=== PATIENT | male | born 1995 | race American Indian/Alaskan Native ===

== ENCOUNTER 2020-05-27 00:59 | Inpatient (IN) | payer OTHER, SELFPAY ==
[2020-05-27 02:46] LABS: Hematocrit 46.5 % (35.5-45.6); Hemoglobin 15.9 gm/dl (11.8-15.2); Mean Corpuscular HGB Conc 34 % (32-34); Mean Corpuscular Volume 101 fl (84-94); Platelet Count 196 K/mm3 (140-440); Red Cell Distribution Width 11.8 % (13.2-15.2)
[2020-05-27 03:04] LABS: Alanine Aminotransferase 13 units/L (7-56); Albumin 4.7 g/dL (3.9-5); BUN/Creatinine Ratio 10; Blood Urea Nitrogen 10 mg/dL (9-20); Calcium 9.6 mg/dL (8.4-10.2); Hemolysis Index 21
[2020-05-27] MEDS ORDERED: SODIUM CHLORIDE 0.9% 1000 ML 1,000 ML IV ONE ×2 (03:23→04:57)
[2020-05-27] MEDS ORDERED: MORPHINE 4 MG/1 ML INJ IV ONE ×2 (03:23→04:57)
[2020-05-27] MEDS ORDERED: ONDANSETRON 4 MG/2 ML INJ IV ONE ×2 (03:23→04:57)
[2020-05-27 03:25] LABS: Bilirubin,Urine NEG (Negative); Blood,Urine NEG (Negative); Color,Urine Amber (Yellow); Mucus,Urine 3+ /HPF
[2020-05-27] MEDS ORDERED: FAMOTIDINE 20 MG/2 ML INJ IV ONE (03:33)
--- NOTE | 2020-05-27 04:35 | Cat Scan Report ---
CT abdomen pelvis w con INDICATION: Abdominal pain, N/V. TECHNIQUE: All CT scans at this location are performed using CT dose reduction for ALARA by means of automated e xposure control. COMPARISON: None available. FINDINGS: Lung bases are clear. 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 Liver is otherwise negative. However, there is a small amount of ascites around the liver . Gallbladder, spleen, pancreas, kidneys and adrenals are negative. Abdominal aorta is normal in size. No adenopathy. There is diffuse small bowel distention. No free air. Pelvis 7 mm calculus in the lower pelvis is thought to represent an appendicolith. The appendix is distended , with inflammation in the appendix itself and the surrounding soft tissues. IMPRESSION: 1. Acute appendicitis with large appendicolith. Ascites and small bowel distention (adynamic ileus) a re thought to be secondary to the inflammatory process. Signer Name: Alen Arceo MD Signed: 05/27/2020 4:31 AM Workstation Name: [id number]
--- NOTE | 2020-05-27 04:46 | Emergency Department Report ---
ED Abdominal Pain HPI - General Chief Complaint: Abdominal Pain Stated Complaint: STOMACH PAIN Source: patient Mode of arrival: Ambulatory Limitations: No Limitations - History of Present Illness Initial Comments: Patient is a 24-year-old -Swazi male with a history of HIV and who is on medications, and who presents to the ED with acute onset persistent severe diffuse abdominal pain that radiates to the right lower quadrant and periumbilical area with intractable nausea and vomiting for the last 2 days after starting on a vegan diet. Patient states that the pain has been persistent and he initially thought that he was constipated. Patient states that with worsening pain he was unable to keep anything down because of intractable nausea and vomiting. Patient denies diarrhea, dizziness, syncope, fever, chills, cough, sore throat, chest pain, dysuria, urinary frequency and urgency, testicular pain, hematuria, change in vision or penile discharge. MD Complaint: abdominal pain, other (Nausea and vomiting) -: Sudden, days(s) (2) Location: diffuse, RLQ Radiation: RLQ, epigastric Migration to: no migration Severity scale (0 -10): 10 Quality: cramping, aching, sharp Consistency: constant Improves With: nothing Worsens With: nothing Associated Symptoms: denies other symptoms, nausea, vomiting. denies: diarrhea, fever, chills, constipation, hematemesis, hematochezia, melena, hematuria, syncope - Related Data Allergies Allergy/AdvReac Type Severity Reaction Status Date / Time No Known Allergies Allergy Unverified 05/27/20 02:09 ED Review of Systems ROS: Stated complaint: STOMACH PAIN Other details as noted in HPI Constitutional: denies: chills, fever Eyes: denies: eye pain, eye discharge, vision change ENT: denies: ear pain, throat pain Respiratory: denies: cough, shortness of breath, wheezing Cardiovascular: denies: chest pain, palpitations Endocrine: no symptoms reported Gastrointestinal: abdominal pain (Diffuse, worse in the right lower quadrant and periumbilical area), nausea, vomiting. denies: diarrhea Genitourinary: denies: urgency, dysuria Musculoskeletal: denies: back pain, joint swelling, arthralgia Skin: denies: rash, lesions Neurological: denies: headache, weakness, paresthesias Psychiatric: denies: anxiety, depression Hematological/Lymphatic: denies: easy bleeding, easy bruising ED Past Medical Hx - Past Medical History Previous Medical History?: Yes Hx HIV: Yes - Surgical History Past Surgical History?: No - Social History Smoking Status: Never Smoker Substance Use Type: None ED Physical Exam - General Limitations: No Limitations General appearance: alert, in no apparent distress - Head Head exam: Present: atraumatic, normocephalic, normal inspection - Eye Eye exam: Present: normal appearance, PERRL, EOMI Pupils: Present: normal accommodation - ENT ENT exam: Present: normal exam, normal orophraynx, mucous membranes moist, TM's normal bilaterally, normal external ear exam - Neck Neck exam: Present: normal inspection, full ROM - Respiratory Respiratory exam: Present: normal lung sounds bilaterally. Absent: respiratory distress, wheezes, rales, rhonchi, chest wall tenderness, accessory muscle use, decreased breath sounds - Cardiovascular Cardiovascular Exam: Present: regular rate, normal rhythm, normal heart sounds. Absent: systolic murmur, diastolic murmur, rubs, gallop - GI/Abdominal GI/Abdominal exam: Present: soft, tenderness (Palpable right lower quadrant rebound tenderness with guarding), guarding, rebound, normal bowel sounds, hyperactive bowel sounds. Absent: hypoactive bowel sounds, mass - Extremities Exam Extremities exam: Present: normal inspection, full ROM, normal capillary refill - Back Exam Back exam: Present: normal inspection, full ROM. Absent: tenderness, CVA tenderness (R), CVA tenderness (L), muscle spasm, paraspinal tenderness, vertebral tenderness - Neurological Exam Neurological exam: Present: alert, oriented X3, CN II-XII intact, normal gait, reflexes normal - Psychiatric Psychiatric exam: Present: normal affect, normal mood - Skin Skin exam: Present: warm, dry, intact, normal color. Absent: rash ED Course Vital Signs 05/27/20 05/27/20 02:04 03:01 Temperature 98.7 F Pulse Rate 106 H Respiratory 18 Rate Blood Pressure 105/81 O2 Sat by Pulse 96 Oximetry - Reevaluation(s) Reevaluation #1: 05/27/20 04:50 I paged and discussed the patient's case with the general surgeon on-call Dr. Fe Villarreal who advised that the patient be admitted by the hospitalist physician on-call and he shall consult on the patient upon admission. ED Medical Decision Making - Lab Data Result diagrams: 05/27/20 02:19 05/27/20 02:19 - Radiology Data Radiology results: report reviewed, image reviewed Findings [facility] [address] [id number] Cat Scan Report Signed Patient: KEERTHI PEÑA MR#: [id number] : 1995 Acct:[id number] Age/Sex: 24 / M ADM Date: 05/27/20 Loc: ED Attending Dr: Ordering Physician: GEORGE PFEIFFER Date of Service: 05/27/20 Procedure(s): CT abdomen pelvis w con Accession Number(s): [id number] cc: GEORGE PFEIFFER CT abdomen pelvis w con INDICATION: Abdominal pain, N/V. TECHNIQUE: All CT scans at this location are performed using CT dose reduction for ALARA by means of automated exposure control. COMPARISON: None available. FINDINGS: Lung bases are clear. 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 Liver is otherwise negative. However, there is a small amount of ascites around the liver. Gallbladder, spleen, pancreas, kidneys and adrenals are negative. Abdominal aorta is normal in size. No adenopathy. There is diffuse small bowel distention. No free air. Pelvis 7 mm calculus in the lower pelvis is thought to represent an appendicolith. The appendix is distended, with inflammation in the appendix itself and the surrounding soft tissues. IMPRESSION: 1. Acute appendicitis with large appendicolith. Ascites and small bowel distention (adynamic ileus) are thought to be secondary to the inflammatory process. Signer Name: Alen Arceo MD Signed: 05/27/2020 4:31 AM Workstation Name: [id number] Transcribed By: TM Dictated By: Alen Arceo MD Electronically Authenticated By: Alen Arceo MD Signed Date/Time: 05/27/20 043 DD/ 2 TD/TT: - Medical Decision Making This is a 24-year-old -Swazi male with a history of HIV and who is on medications, and who presents to the ED with acute onset persistent severe diffuse abdominal pain that radiates to the right lower quadrant and periumbilical area with intractable nausea and vomiting for the last 2 days after starting on a vegan diet. Patient states that the pain has been persistent and he initially thought that he was constipated. Patient states that with worsening pain he was unable to keep anything down because of intractable nausea and vomiting. In the ED, patient is alert and oriented x3 and is not in distress. Lab test results were reviewed and are all nonactionable. Patient was treated for pain and also nausea and vomiting, and was also given normal saline 1 L IV bolus x1. Abdomen pelvis CT scan with contrast shows acute appendicitis with large appendicolith. Ascites and small bowel distention (adynamic ileus) are thought to be secondary to the inflammatory process. On reevaluation, patient's pain is well controlled medication as well as nausea and vomiting. Patient case was discussed with the ED attending physician Dr. Fanny Prater who agreed the plan of care. I therefore paged and discussed the patient's case with the general surgeon on- call Dr. Fe Villarreal who advised that the patient be admitted by the hospitalist physician and that he shall consult the patient upon admission later this morning. I therefore paged and discussed the patient's case with the hospitalist physician on-call Dr. Anderson who admitted the patient to the hospital. - Differential Diagnosis Appendicitis; small bowel obstruction; kidney stones; UTI; colitis Critical care attestation.: If time is entered above; I have spent that time in minutes in the direct care of this critically ill patient, excluding procedure time. ED Disposition Clinical Impression: Acute abdominal pain in right lower quadrant, Nausea and vomiting in adult, Fever and chills Acute appendicitis Qualifiers: Acute appendicitis type: unspecified acute appendicitis type Qualified Code(s): K35.80 - Unspecified acute appendicitis Disposition: OP ADMIT IP TO THIS HOSP Is pt being admited?: Yes Does the pt Need Aspirin: No Condition: Stable Instructions: Abdominal Pain (ED) Referrals: PRIMARY CARE, [Primary Care Provider] - 3-5 Days Time of Disposition: 05:09 Print Language: ARMENIAN
[2020-05-27] MEDS ORDERED: PIPERACIL/TAZOBACTA 4.5/NS 100 4.5 GM/100 ML VIAL IV ONE (04:57)
[2020-05-27] MEDS ORDERED: ACETAMINOPHEN 500 MG TAB PO ONE (05:09)
[2020-05-27 05:23] LABS: Anisocytosis 1+; Basophils % (Manual) 0 % (0.0-1.8); Eosinophils % (Manual) 0 % (0.0-4.3); Macrocytosis 1+; Total Cells Counted 100
[2020-05-27 05:24] LABS: Platelet Estimate Consistent w Auto
[2020-05-27] MEDS ORDERED: ACETAMINOPHEN 325 MG TAB PO PRN (05:32)
--- NOTE | 2020-05-27 05:37 | History and Physical Report ---
History of Present Illness Date of examination: 05/27/20 Date of admission: 05/27/20 05:11 Chief complaint: Abdominal Pain Nausea and vomiting History of present illness: 24-year-old -[place] male with known history of HIV diagnosed in 2015 with undetectable viral load seen the emergency room today complaining of nausea and vomiting with associated abdominal pain which has been ongoing for the past 2 days. He denies any fever or chills, no chest pain or shortness of breath, no headache or dizziness, no cough, no hematuria or dysuria but he had a bout of loose stools. Denies any bright red blood per rectum. Patient denies any sick contacts and no recent travel. Denies any contact with anyone with COVID-19. Evaluation in the emergency room today including CT scan of the abdomen and pelvis:Acute appendicitis with large appendicolith. Ascites and small bowel distention (adynamic ileus)are thought to be secondary to the inflammatory process. General surgeon Dr. Austin has been consulted by the ER physician. Patient has been placed on IV fluid, IV analgesic medication and empiric IV antibiotics. Past History Past Medical History: other (HIV positive) Past Surgical History: No surgical history Social history: no significant social history Family history: no significant family history Medications and Allergies Allergies Allergy/AdvReac Type Severity Reaction Status Date / Time No Known Allergies Allergy Unverified 05/27/20 02:09 Active Meds: Active Medications Sodium Chloride (Nacl 0.9% 1000 Ml) 1,000 mls @ 125 mls/hr IV ONCE ONE Stop: 05/27/20 12:56 Review of Systems Constitutional: no fever, no chills Ears, nose, mouth and throat: no nasal congestion, no sore throat Cardiovascular: no chest pain, no palpitations Respiratory: no cough, no shortness of breath Gastrointestinal: abdominal pain, nausea, vomiting, diarrhea Genitourinary Male: no dysuria, no hematuria, no flank pain, no nocturia Musculoskeletal: no neck pain, no low back pain Integumentary: no rash, no pruritis Neurological: no headaches, no confusion Psychiatric: no anxiety, no depression Exam - Constitutional Vitals: Temp Pulse Resp BP Pulse Ox 100.1 F H 112 H 18 141/50 99 05/27/20 04:55 05/27/20 04:55 05/27/20 04:55 05/27/20 04:55 05/27/20 04:55 General appearance: Present: no acute distress, well-nourished - EENT Eyes: Present: PERRL, EOM intact. Absent: scleral icterus ENT: hearing intact, clear oral mucosa, dentition normal - Neck Neck: Present: supple, normal ROM - Respiratory Respiratory effort: normal Respiratory: bilateral: CTA - Cardiovascular Rhythm: regular Heart Sounds: Present: S1 & S2. Absent: gallop, systolic murmur, diastolic murmur - Extremities Extremities: no ischemia, pulses intact, pulses symmetrical, No edema, Full ROM Peripheral Pulses: within normal limits - Abdominal General gastrointestinal: Present: soft, tender, non-distended, normal bowel sounds. Absent: mass Localized gastrointestinal: tender: RLQ, guarding: RLQ - Integumentary Integumentary: Present: clear, warm, dry - Musculoskeletal Musculoskeletal: strength equal bilaterally - Psychiatric Psychiatric: appropriate mood/affect, intact judgment & insight, memory intact, cooperative - Neurologic Neurologic: CNII-XII intact, no focal deficits, moves all extremities Results - Labs CBC & Chem 7: 05/27/20 02:19 05/27/20 02:19 Labs: Abnormal lab results 05/27/20 05/27/20 05/27/20 Range/Units 02:19 02:19 03:15 Hgb 15.9 H (11.8-15.2) gm/dl Hct 46.5 H (35.5-45.6) % MCV 101 H (84-94) fl MCH 35 H (28-32) pg RDW 11.8 L (13.2-15.2) % Seg Neuts % (Manual) 87.0 H (40.0-70.0) % Lymphocytes % (Manual) 8.0 L (13.4-35.0) % Lymphocytes # (Manual) 0.4 L (1.2-5.4) K/mm3 Chloride 95.2 L (98-107) mmol/L Glucose 115 H (75-100) mg/dL Total Protein 8.7 H (6.3-8.2) g/dL Ur Specific [place] 1.038 H (1.003-1.030) Assessment and Plan - Patient Problems (1) Acute appendicitis Current Visit: Yes Status: Acute Qualifiers: Acute appendicitis type: unspecified acute appendicitis type Qualified Code(s): K35.80 - Unspecified acute appendicitis Plan to address problem: Patient placed on IV fluid and empiric IV antibiotics. General surgeon Dr. Austin has been consulted. Patient will be kept n.p.o. (2) Nausea and vomiting in adult Current Visit: Yes Status: Acute Plan to address problem: Probably secondary to the appendicitis. Will place on IV analgesic medication, IV fluid and IV Zofran as needed. (3) DVT prophylaxis Current Visit: Yes Status: Acute Plan to address problem: Patient placed on sequential compression device. (4) Full code status Current Visit: Yes Status: Acute
[2020-05-27] MEDS: PIPERACIL/TAZOBACTA 4.5/NS 100 4.5 GM/100 ML VIAL IV SCH ×3 (06:07→21:51)
--- NOTE | 2020-05-27 09:33 | Anesthesia Consultation ---
Anesthesia Consult and Med Hx Date of service: 05/27/20 - Airway Anesthetic Teeth Evaluation: Good ROM Head & Neck: Adequate Mental/Hyoid Distance: Adequate Mallampati Class: Class II Intubation Access Assessment: Probably Good - Pre-Operative Health Status ASA Pre-Surgery Classification: ASA2 Proposed Anesthetic Plan: General - Pulmonary Hx Smoking: Yes (marijuana) Hx Asthma: No Hx Respiratory Symptoms: No SOB: No COPD: No Home Oxygen Therapy: No Hx Pneumonia: No Hx Sleep Apnea: No - Cardiovascular System Hx Hypertension: No Hx Coronary Artery Disease: No Hx Heart Attack/AMI: No Hx Angina: No Hx Percutaneous Transluminal Coronary Angioplasty (PTCA): No Hx Cardia Arrhythmia: No Hx Pacemaker: No Hx Internal Defibrillator: No Hx Valvular Heart Disease: No Hx Heart Murmur: No Hx Peripheral Vascular Disease: No - Central Nervous System Hx Neuromuscular Disorder: No Hx Seizures: No CVA: No Hx Back Pain: No Hx Psychiatric Problems: Yes (anexity/depression) - Gastrointestinal Hx Ulcer: No Hx Gastroesophageal Reflux Disease: No - Endocrine Hx Renal Disease: No Hx End Stage Renal Disease: No Hx Cirrhosis: No Hx Liver Disease: No Hx Insulin Dependent Diabetes: No Hx Non-Insulin Dependent Diabetes: No Hx Thyroid Disease: No Hx Hypothyroidism: No Hx Hyperthyroidism: No - Hematic Hx Anemia: No Hx Sickle Cell Disease: No - Other Systems Hx Alcohol Use: Yes (occ.) Hx Substance Use: Yes (marijuana) Hx Cancer: No Hx Obesity: No - Additional Comments Anesthesia Medical History Comments: HIV+. Do NOT disclose to any family.
--- NOTE | 2020-05-27 09:34 | Anesthesia Day of Surgery ---
Anesthesia Day of Surgery - Day of Surgery Patient Examined: Yes Patient H&P Reviewed: Yes Patient is NPO: Yes
--- NOTE | 2020-05-27 09:36 | Consultation ---
History of Present Illness Consult date: 05/27/20 Reason for consult: abdominal pain Chief complaint: 24 yo BM with HIV (undetectable viral count/asx) presents with 2 days of abd pain (lower) ands n/v x5-6. Ct with appendicitis with significant inflammation RLQ/pelvis with large appendicolith and secondary SBO. Pt was tested for Covid on Thursday and states he was negative but no physical prrof as its in his phone which he does not have in possession. Past History Past Medical History: other (HIV positive) Past Surgical History: No surgical history, Other (hx testicular torsion sx with no anes/bleeding comps) Social history: no significant social history Family history: no significant family history Medications and Allergies Allergies Allergy/AdvReac Type Severity Reaction Status Date / Time No Known Allergies Allergy Unverified 05/27/20 02:09 Active Meds: Active Medications Acetaminophen (Tylenol) 650 mg PO Q4H PRN PRN Reason: Pain MILD(1-3)/Fever >100.5/MENDEZ Sodium Chloride (Nacl 0.9% 1000 Ml) 1,000 mls @ 125 mls/hr IV ONCE ONE Stop: 05/27/20 12:56 Sodium Chloride (Nacl 0.9% 1000 Ml) 1,000 mls @ 125 mls/hr IV DIRECT AMOR Piperacillin Sod/Tazobactam Sod (Zosyn/Ns 4.5gm/100ml) 4.5 gm in 100 mls @ 200 mls/hr IV Q8HR AMOR; Protocol Last Admin: 05/27/20 06:07 Dose: 200 mls/hr Documented by: Morphine Sulfate (Morphine) 2 mg IV Q4H PRN PRN Reason: Pain, Moderate (4-6) Ondansetron HCl (Zofran) 4 mg IV Q8H PRN PRN Reason: Nausea And Vomiting Sodium Chloride (Sodium Chloride Flush Syringe 10 Ml) 10 ml IV BID AMOR Sodium Chloride (Sodium Chloride Flush Syringe 10 Ml) 10 ml IV PRN PRN PRN Reason: LINE FLUSH Exam Vital Signs Temp Resp BP 98.7 F 18 105/81 05/27/20 02:04 05/27/20 02:04 05/27/20 02:04 - Abdomen Abdomen: Present: tender, bowel sounds hypoactive, distended, guarding. Absent: rigid, surgical scars Hernia: none (+sig TTP bilat lower quadrants, borderline peritoneal signs, no scars/hernias) Results - Labs 05/27/20 02:19 05/27/20 02:19 Abnormal lab results 05/27/20 05/27/20 05/27/20 Range/Units 02:19 02:19 03:15 Hgb 15.9 H (11.8-15.2) gm/dl Hct 46.5 H (35.5-45.6) % MCV 101 H (84-94) fl MCH 35 H (28-32) pg RDW 11.8 L (13.2-15.2) % Seg Neuts % (Manual) 87.0 H (40.0-70.0) % Lymphocytes % (Manual) 8.0 L (13.4-35.0) % Lymphocytes # (Manual) 0.4 L (1.2-5.4) K/mm3 Chloride 95.2 L (98-107) mmol/L Glucose 115 H (75-100) mg/dL Total Protein 8.7 H (6.3-8.2) g/dL Ur Specific [place] 1.038 H (1.003-1.030) Diabetes panel 05/27/20 Range/Units 02:19 Sodium 138 (137-145) mmol/L Potassium 3.7 (3.6-5.0) mmol/L Chloride 95.2 L (98-107) mmol/L Carbon Dioxide 23 (22-30) mmol/L BUN 10 (9-20) mg/dL Creatinine 1.0 (0.8-1.3) mg/dL Glucose 115 H (75-100) mg/dL Calcium 9.6 (8.4-10.2) mg/dL AST 17 (5-40) units/L ALT 13 (7-56) units/L Alkaline Phosphatase 67 (35-129) units/L Total Protein 8.7 H (6.3-8.2) g/dL Albumin 4.7 (3.9-5) g/dL Calcium panel 05/27/20 Range/Units 02:19 Calcium 9.6 (8.4-10.2) mg/dL Albumin 4.7 (3.9-5) g/dL Pituitary panel 05/27/20 Range/Units 02:19 Sodium 138 (137-145) mmol/L Potassium 3.7 (3.6-5.0) mmol/L Chloride 95.2 L (98-107) mmol/L Carbon Dioxide 23 (22-30) mmol/L BUN 10 (9-20) mg/dL Creatinine 1.0 (0.8-1.3) mg/dL Glucose 115 H (75-100) mg/dL Calcium 9.6 (8.4-10.2) mg/dL Adrenal panel 05/27/20 Range/Units 02:19 Sodium 138 (137-145) mmol/L Potassium 3.7 (3.6-5.0) mmol/L Chloride 95.2 L (98-107) mmol/L Carbon Dioxide 23 (22-30) mmol/L BUN 10 (9-20) mg/dL Creatinine 1.0 (0.8-1.3) mg/dL Glucose 115 H (75-100) mg/dL Calcium 9.6 (8.4-10.2) mg/dL Total Bilirubin 1.10 (0.1-1.2) mg/dL AST 17 (5-40) units/L ALT 13 (7-56) units/L Alkaline Phosphatase 67 (35-129) units/L Total Protein 8.7 H (6.3-8.2) g/dL Albumin 4.7 (3.9-5) g/dL Assessment and Plan 1. Appendicitis (severe)-- to OR for lap poss open appy; may require bowel resection due to inflammation (d/w pt and mother in detail) 2. SBO secondary to #1-- NGT/ await bowel fct before diet resumption; anes decision to place NGT pre-op or do special anes induction to lower aspiration risk- d/w anes personally before case. 3. HIV status
[2020-05-27] MEDS ORDERED: PHENYLEPHRINE/NS 1,000 MCG/10 ML SYRINGE (OR USE) IV ONE (09:53)
[2020-05-27] MEDS ORDERED: ROCURONIUM 50 MG/5 ML INJ IV ONE (09:53)
[2020-05-27] MEDS ORDERED: LIDOCAINE MPF (2%) 20 MG/1 ML VIAL 5 ML ONE (09:53)
[2020-05-27] MEDS ORDERED: ONDANSETRON 4 MG/2 ML INJ ONE (09:53)
[2020-05-27] MEDS ORDERED: SUCCINYLCHOLINE CHLORIDE 200 MG/10 ML INJ MDV ONE (09:53)
[2020-05-27] MEDS ORDERED: dexAMETHasone 20 MG/5 ML VIAL ONE (09:53)
[2020-05-27] MEDS ORDERED: GLYCOPYRROLATE 0.4 MG/2 ML INJ ONE (09:53)
[2020-05-27] MEDS ORDERED: NEOSTIGMINE 10MG/10 ML INJ MDV ONE (09:53)
[2020-05-27] MEDS ORDERED: MIDAZOLAM 2 MG/2 ML INJ ONE (09:54)
[2020-05-27] MEDS ORDERED: fentaNYL 100 MCG/2 ML INJ ONE ×2 (09:54→11:43)
[2020-05-27] MEDS ORDERED: propofoL 200 MG/20 ML VIAL IV ONE (09:54)
[2020-05-27] MEDS ORDERED: SODIUM CHLORIDE 0.9% IRR 1,500 ML BOTTLE IR ONE (10:33)
[2020-05-27] MEDS ORDERED: HYDROmorphone 1 MG/1 ML INJ ONE ×2 (10:34→11:59)
--- NOTE | 2020-05-27 11:40 | Post Operative Note ---
Pre-op diagnosis: appendicitis Post-op diagnosis: other (perforated appendicitis with gross peritonitis) Findings: gross peritonitis with pus erupting out of umb lap incision at start of case-- immediately converted to open perforated appendix with necrotic 1cm section with approx 7-8mm opening pus throughout entire abdomen Procedure: lap--open appendectomy via ex lap Drainage of abscess Anesthesia: FRANDYA Surgeon: MICHELINE WREN Division Traffic Superintendent: JEANNETTE LANIER Estimated blood loss: minimal Pathology: list (appendix/culture) Specimen disposition: to lab Condition: stable Disposition: PACU
[2020-05-27] MEDS: HYDROmorphone 1 MG/1 ML INJ IV PRN ×4 (12:00→12:30)
--- NOTE | 2020-05-27 12:02 | Post Anesthesia Evaluation ---
- Post Anesthesia Evaluation Patient Participated: Yes Airway Patent: Yes Stable Respiratory Function: Yes Nausea/Vomiting: No Temp > 96.8F: Yes Pain Manageable: Yes Adequeate Hydration: Yes Anesthesia Complications: No Block Receding Appropriately: Not Applicable Patient on Ventilator: No
[2020-05-27] MEDS ORDERED: SODIUM CHLORIDE 0.9% 1000 ML 1,000 ML ONE (12:16)
[2020-05-27] MEDS ORDERED: PHENOL 1.4% 177 ML BOTTLE MM PRN (13:14)
[2020-05-27] MEDS: HEPARIN 5,000 UNIT/1 ML VIAL SUB-Q SCH ×2 (14:00→21:47)
--- NOTE | 2020-05-27 14:11 | Event Note ---
Date: 05/27/20 24-year-old -[place] male with known history of HIV diagnosed in 2015 with undetectable viral load seen the emergency room complaining of nausea and vomiting with associated abdominal pain which has been ongoing for the past 2 days. Evaluation in the emergency room including CT scan of the abdomen and pelvis showed:Acute appendicitis with large appendicolith. Ascites and small bowel distention (adynamic ileus) are thought to be secondary to the inflammatory process. General surgeon Dr. Austin has been consulted by the ER physician. Patient has been placed on IV fluid, IV analgesic medication and empiric IV antibiotics. Patient taken to OR today s/p open appendectomy via ex lap and Drainage of abscess Cont iv zosyn, follow cx, iv fluid.
[2020-05-27] MEDS: SODIUM CHLORIDE 0.9% 1000 ML 1,000 ML IV SCH (21:47)
[2020-05-27] MEDS: MORPHINE 2 MG/1 ML INJ IV PRN (22:00)
[2020-05-27] MEDS: ONDANSETRON 4 MG/2 ML INJ IV PRN (22:02)
[2020-05-28] MEDS: MORPHINE 2 MG/1 ML INJ IV PRN (03:57)
[2020-05-28] MEDS: ONDANSETRON 4 MG/2 ML INJ IV PRN (03:57)
[2020-05-28] MEDS: PIPERACIL/TAZOBACTA 4.5/NS 100 4.5 GM/100 ML VIAL IV SCH ×4 (06:13→22:24)
[2020-05-28] MEDS: HEPARIN 5,000 UNIT/1 ML VIAL SUB-Q SCH ×4 (06:13→22:25)
[2020-05-28] MEDS: SODIUM CHLORIDE 0.9% 1000 ML 1,000 ML IV SCH ×3 (06:19→20:49)
[2020-05-28 07:59] LABS: Basophils % (Auto) 0.1 % (0.0-1.8); Hematocrit 37.3 % (35.5-45.6); Hemoglobin 12.4 gm/dl (11.8-15.2); Lymphocytes # (Auto) 0.8 K/mm3 (1.2-5.4); Lymphocytes % (Auto) 8.4 % (13.4-35.0); Mean Corpuscular HGB Conc 33 % (32-34); Mean Corpuscular Volume 101 fl (84-94); Monocytes # (Auto) 0.7 K/mm3 (0.0-0.8); Monocytes % (Auto) 7.3 % (0.0-7.3); Platelet Count 173 K/mm3 (140-440); Red Blood Count 3.68 M/mm3 (3.65-5.03); Red Cell Distribution Width 11.8 % (13.2-15.2)
[2020-05-28 08:10] LABS: INR 1.39 (0.87-1.13)
[2020-05-28 08:18] LABS: BUN/Creatinine Ratio 14; Blood Urea Nitrogen 11 mg/dL (9-20); Calcium 8.2 mg/dL (8.4-10.2); Hemolysis Index 4
[2020-05-28] MEDS: HYDROmorphone 1 MG/1 ML INJ IV PRN ×3 (09:50→20:46)
--- NOTE | 2020-05-28 13:41 | Operative Report ---
STAFF PHYSICIAN: Phil Miramontes MD PUBLICATION DISTRIBUTOR: Piyush Ramos MD PREOPERATIVE DIAGNOSES: 1. Appendicitis. 2. Small-bowel obstruction secondary to #1. POSTOPERATIVE DIAGNOSES: 1. Perforated appendicitis with abscess and gross peritonitis. 2. Small-bowel obstruction. OPERATION PERFORMED: 1. Diagnostic laparoscopy. 2. Exploratory laparotomy. 3. Drainage of intra-abdominal abscess. 4. Open appendectomy. INDICATIONS: A 24-year-old black male with HIV who presents with 2 days of abdominal pain, nausea, vomiting, has CAT scan evidence consistent with severe appendicitis with some ascites and small-bowel obstruction secondary to inflammatory mass in the patient's right lower quadrant/pelvis. The patient was brought to the operating room emergently. ANESTHESIA: General endotracheal anesthesia. SPECIMEN SENT: 1. Abscess/peritoneal fluid culture. 2. Appendix (perforated). FINDINGS: A perforated appendix with a 1 cm necrotic area with approximately 7-8 mm hole visibly seen with a periappendiceal abscess and gross peritonitis and mild small-bowel obstruction secondary to inflammatory process in right lower quadrant. ESTIMATED BLOOD LOSS: Minimal. COMPLICATIONS: None. DRAINS: Two 15-Pakistani Navjot. DESCRIPTION OF PROCEDURE: After informed consent was obtained, the patient was taken to the operating room and placed into endotracheal anesthesia. The patient was prepped and draped in standard surgical fashion. Surgical timeout was performed. VTE and antibiotic prophylaxis had been given appropriately. A curvilinear incision was made at the umbilicus. Dissection was carried down to and through the abdominal fascia without complication, and immediately, there was a large amount of pus erupting from the initial incision. This was suctioned free immediately and we then placed a Linda trocar and performed diagnostic laparoscopy, which showed diffuse erythema of all the bowel and distended small bowel behind the large inflammatory mass in the right lower quadrant along with pus along the liver and in the pelvis, everywhere throughout the abdomen. We then converted to open through a lower midline incision and continued to suck out a large amount of gross purulent peritonitis and then evaluated the appendix. The appendix was noted as above, but the base was not involved. I made a small hole in the mesoappendix in that area and fired across with the Endo-SINDI with vascular load, fired a second Endo-SINDI vascular load across the mesoappendix and oversewed both the appendiceal stump and the mesoappendix staple line with 3-0 silk sutures due to the higher risk of stump blowout or bleeding due to the patient's peritonitis. We then irrigated the abdomen out thoroughly with 5 liters of warm saline. There was no other pathology. We placed two 15 mm Navjot drains, brought them out through separate stab incisions on both sides of the abdomen, placed the left side down into the pelvis and the right side throughout the mid abdomen in an attempt to prevent development of abscess, which the patient will be at higher risk of postoperatively. We then peeled off some of the inflammatory peel off of much of the small bowel and closed the abdomen with #1 PDS running looped sutures in 7-8 mm staggered bites. Due to the high risk of wound infection, we ensured full hemostasis and packed the open wound with Betadine-soaked Kerlix roll gauze x 1. Drains were placed to suction. The patient was extubated and taken to the recovery room in stable fashion. [facility]# [id number] DINESH/ISIDRA
--- NOTE | 2020-05-28 14:25 | XRay Report ---
ABDOMEN 1 VIEW(S) INDICATION / CLINICAL INFORMATION: NGT placement. COMPARISON: None available. FINDINGS: TUBES / LINES: Tip of the nasogastric tube projects the level of the lower third of the mediastinum. The tube does not reach the abdomen. BOWEL GAS PATTERN/EXTRALUMINAL GAS: There are gas-filled loops of small and large bowel. Small bowel appears mildly distended. No pneumatosis or secondary signs of free air. ADDITIONAL FINDINGS: No significant additional findings. IMPRESSION: 1. Nasogastric tube tip projects over the lower third of the mediastinum. The tube does not reach the abdomen. 2. There is mild gaseous distention of small bowel loops in the left abdomen. Signer Name: Stan Dominguez MD Signed: 05/28/2020 2:21 PM Workstation Name: [id number]
--- NOTE | 2020-05-28 14:31 | XRay Report ---
CHEST 1 VIEW INDICATION / CLINICAL INFORMATION: NGT placement. COMPARISON: None available. FINDINGS: SUPPORT DEVICES: Nasogastric tube tip projects the level the distal third of the esophagus. The tube does not reach the stomach. HEART / MEDIASTINUM: No significant abnormality. LUNGS / PLEURA: No significant pulmonary or pleural abnormality.. No pneumothorax. ADDITIONAL FINDINGS: No significant additional findings. IMPRESSION: 1. Tip the nasogastric tube projects the level the distal third of the esophagus. The tube does not r each the stomach. The tip of the tube is positioned approximately 8 to 10 cm above the GE junction CRITICAL RESULT: Dr. Dominguez called this report to patient's nurse, Fartun, at time 1325 central time. Report was co nfirmed. Signer Name: Stan Dominguez MD Signed: 05/28/2020 2:27 PM Workstation Name: [id number]
--- NOTE | 2020-05-28 15:23 | XRay Report ---
ABDOMEN 1 VIEW 05/28/2020 2:13 PM INDICATION / CLINICAL INFORMATION: Advanced NGT check placement. COMPARISON: 2:03 PM FINDINGS: TUBES / LINES: Esophagogastric tube has been advanced into the gastric fundus. Surgical drains projec ting over the lower abdomen and pelvis are unchanged. BOWEL GAS PATTERN: Mildly dilated loops of large and small bowel likely representing ileus. FREE AIR / EXTRALUMINAL GAS: None. ADDITIONAL FINDINGS: No significant additional findings. IMPRESSION: 1. Esophagogastric tube in expected position. Signer Name: Sulma Mendoza MD Signed: 05/28/2020 3:19 PM Workstation Name: [id number]
--- NOTE | 2020-05-28 15:32 | Progress Note ---
Assessment and Plan -- Acute appendicitis with abscess Patient placed on IV fluid and empiric IV antibiotics. General surgeon Dr. Austin has been consulted. s/p open appendectomy via ex lap and Drainage of abscess. Cont iv zosyn, follow cx, cont on IV analgesic medication, IV fluid and IV Zofran as needed. Patient will be kept n.p.o. --Sepsis, due to Acute appendicitis with large appendicolith cont abx, follow ID recommendation --adynamic ileus cont NG suction, GS following serial abd xry -- Nausea and vomiting in adult Probably secondary to the appendicitis. cont on IV analgesic medication, IV fluid and IV Zofran as needed. -- HIV hold meds for now, ID consult -- DVT Px Patient placed on sequential compression device. Brief History: 24-year-old -[place] male with known history of HIV diagnosed in 2014 with undetectable viral load seen the emergency room complaining of nausea and vomiting with associated abdominal pain which has been ongoing for the past 2 days. Evaluation in the emergency room including CT scan of the abdomen and pelvis showed:Acute appendicitis with large appendicolith. Ascites and small bowel distention (adynamic ileus) are thought to be secondary to the inflammatory process. General surgeon Dr. Austin has been consulted by the ER physician. 05/28: Patient has been placed on IV fluid, IV analgesic medication and empiric IV antibiotics.Patient taken to OR: s/p open appendectomy via ex lap and Drainage of abscess. Cont iv zosyn, follow cx, iv fluid. advance NG tube per abd xry as not in right position. Subjective Date of service: 05/28/20 Interval history: Patient seen and examined s/p surgery 05/27 -tolerated well on NG suction , c/o abdominal pain Objective - Exam Narrative Exam: Constitutional: Alert, cooperative. No acute distress Head, Ears, Nose: Normocephalic, atraumatic. External ears, nose normal Eyes: Conjunctivae/corneas clear. No icterus. No ptosis. Neck: Supple, no meningeal signs Oral: dentition fair, no thrush Cardiovascular: S1, S2 normal. Respiratory: Good air entry, clear to auscultation bilaterally GI: Midline incision with dressing, drain with serous output, bowel sounds hypoactive Musculoskeletal: No pedal edema, no cyanosis. Skin: No rash or abscess Psych: Mood ok. Affect normal Neurological: Awake, alert, oriented. No gross abnormality - Constitutional Vitals: Vital Signs - 12hr 05/28/20 05/28/20 05/28/20 05:31 07:41 13:27 Temperature 98.8 F 99.5 F 99.2 F Pulse Rate 108 H 103 H 106 H Respiratory 16 18 18 Rate Blood Pressure 129/67 127/75 Blood Pressure 120/60 [Left] O2 Sat by Pulse 99 97 100 Oximetry - Labs CBC & Chem 7: 05/30/20 07:53 05/30/20 07:53 Labs: Abnormal lab results 05/28/20 05/28/20 05/28/20 Range/Units 07:44 07:44 07:44 MCV 101 H (84-94) fl MCH 34 H (28-32) pg RDW 11.8 L (13.2-15.2) % Lymph % (Auto) 8.4 L (13.4-35.0) % Lymph # (Auto) 0.8 L (1.2-5.4) K/mm3 Seg Neutrophils % 84.2 H (40.0-70.0) % Seg Neutrophils # 8.4 H (1.8-7.7) K/mm3 PT 17.4 H (12.2-14.9) Sec. INR 1.39 H (0.87-1.13) Calcium 8.2 L (8.4-10.2) mg/dL
--- NOTE | 2020-05-28 18:06 | Progress Note ---
Assessment and Plan 1. s/p Ex Lap/ open appendectomy for perforated appendicitis with gross peritonitis-- cont drains/abx/NPO/etc Consider TPN if no bowel fct in 4-5 days; ID consult for abx management 2. HIV-- ID consult - d/w Dr. Devi Subjective Date of service: 05/28/20 Patient Reports: Positive: no new complaints (pain controlled; NPO/IVF; not OOB yet; No flatus/BM; +hiccups) Objective Vital Signs - 12hr 05/28/20 05/28/20 05/28/20 07:41 13:27 16:35 Temperature 99.5 F 99.2 F 99.0 F Pulse Rate 103 H 106 H 102 H Respiratory 18 18 18 Rate Blood Pressure 129/67 127/75 131/77 O2 Sat by Pulse 97 100 98 Oximetry - General physical appearance no pain - Abdomen tender, distended, other (wound drsg ok; no BS) - Labs 05/28/20 07:44 05/28/20 07:44 Diabetes panel 05/28/20 Range/Units 07:44 Sodium 139 (137-145) mmol/L Potassium 3.7 (3.6-5.0) mmol/L Chloride 104.5 (98-107) mmol/L Carbon Dioxide 25 (22-30) mmol/L BUN 11 (9-20) mg/dL Creatinine 0.8 (0.8-1.3) mg/dL Glucose 82 (75-100) mg/dL Calcium 8.2 L (8.4-10.2) mg/dL Calcium panel 05/28/20 Range/Units 07:44 Calcium 8.2 L (8.4-10.2) mg/dL Pituitary panel 05/28/20 Range/Units 07:44 Sodium 139 (137-145) mmol/L Potassium 3.7 (3.6-5.0) mmol/L Chloride 104.5 (98-107) mmol/L Carbon Dioxide 25 (22-30) mmol/L BUN 11 (9-20) mg/dL Creatinine 0.8 (0.8-1.3) mg/dL Glucose 82 (75-100) mg/dL Calcium 8.2 L (8.4-10.2) mg/dL Adrenal panel 05/28/20 Range/Units 07:44 Sodium 139 (137-145) mmol/L Potassium 3.7 (3.6-5.0) mmol/L Chloride 104.5 (98-107) mmol/L Carbon Dioxide 25 (22-30) mmol/L BUN 11 (9-20) mg/dL Creatinine 0.8 (0.8-1.3) mg/dL Glucose 82 (75-100) mg/dL Calcium 8.2 L (8.4-10.2) mg/dL
[2020-05-29] MEDS: HYDROmorphone 1 MG/1 ML INJ IV PRN ×5 (02:02→21:46)
[2020-05-29] MEDS: HEPARIN 5,000 UNIT/1 ML VIAL SUB-Q SCH ×3 (05:38→21:47)
[2020-05-29] MEDS: PIPERACIL/TAZOBACTA 4.5/NS 100 4.5 GM/100 ML VIAL IV SCH ×2 (05:38→14:18)
[2020-05-29] MEDS: SODIUM CHLORIDE 0.9% 1000 ML 1,000 ML IV SCH ×2 (05:47→14:23)
[2020-05-29 11:33] LABS: Blood Urea Nitrogen 10 mg/dL (9-20); Calcium 8.3 mg/dL (8.4-10.2); Hemolysis Index 5
[2020-05-29 11:34] LABS: BUN/Creatinine Ratio 14
--- NOTE | 2020-05-29 14:53 | Progress Note ---
Assessment and Plan Perforated Appendicitis with gross peritonitis-- cont current care (drains/abx/etc) Post-op ileus-- await bowel fct return; NPO/NGT/IVF HIV--ID consult ordered Subjective Date of service: 05/29/20 Patient Reports: Positive: no new complaints, still having pain, no flatus, no bowel movement (pain controlled-using sig amt narcotics; not OOB yet despite requests; +urinating w/o Velazquez; NPO/NGT' no flatus/BM) Objective Vital Signs - 12hr 05/29/20 05/29/20 05/29/20 04:48 07:42 10:00 Temperature 99.1 F 99.2 F Pulse Rate 104 H 97 H Respiratory 18 18 Rate Blood Pressure 138/75 143/78 O2 Sat by Pulse 98 96 98 Oximetry 05/29/20 11:21 Temperature 99.6 F Pulse Rate 100 H Respiratory 18 Rate Blood Pressure 135/77 O2 Sat by Pulse 96 Oximetry - Abdomen soft, tender, bowel sounds hypoactive (drsg ok; Vasquez-serosangx2), distended - Labs 05/28/20 07:44 05/29/20 10:43 Diabetes panel 05/29/20 Range/Units 10:43 Sodium 141 (137-145) mmol/L Potassium 3.9 (3.6-5.0) mmol/L Chloride 102.2 (98-107) mmol/L Carbon Dioxide 22 (22-30) mmol/L BUN 10 (9-20) mg/dL Creatinine 0.7 L (0.8-1.3) mg/dL Glucose 73 L (75-100) mg/dL Calcium 8.3 L (8.4-10.2) mg/dL Calcium panel 05/29/20 Range/Units 10:43 Calcium 8.3 L (8.4-10.2) mg/dL Pituitary panel 05/29/20 Range/Units 10:43 Sodium 141 (137-145) mmol/L Potassium 3.9 (3.6-5.0) mmol/L Chloride 102.2 (98-107) mmol/L Carbon Dioxide 22 (22-30) mmol/L BUN 10 (9-20) mg/dL Creatinine 0.7 L (0.8-1.3) mg/dL Glucose 73 L (75-100) mg/dL Calcium 8.3 L (8.4-10.2) mg/dL Adrenal panel 05/29/20 Range/Units 10:43 Sodium 141 (137-145) mmol/L Potassium 3.9 (3.6-5.0) mmol/L Chloride 102.2 (98-107) mmol/L Carbon Dioxide 22 (22-30) mmol/L BUN 10 (9-20) mg/dL Creatinine 0.7 L (0.8-1.3) mg/dL Glucose 73 L (75-100) mg/dL Calcium 8.3 L (8.4-10.2) mg/dL
--- NOTE | 2020-05-29 15:03 | Progress Note ---
Assessment and Plan -- Acute appendicitis with abscess Patient placed on IV fluid and empiric IV antibiotics. General surgeon Dr. Austin has been consulted. s/p open appendectomy via ex lap and Drainage of abscess. Cont iv zosyn, follow cx, cont on IV analgesic medication, IV fluid and IV Zofran as needed. Patient will be kept n.p.o. --Sepsis, due to Acute appendicitis with large appendicolith cont abx, follow ID recommendation --adynamic ileus cont NG suction, GS following serial abd xry -- Nausea and vomiting in adult Probably secondary to the appendicitis. cont on IV analgesic medication, IV fluid and IV Zofran as needed. -- HIV hold meds for now, ID consult -- DVT Px Patient placed on sequential compression device. Brief History: 24-year-old -[place] male with known history of HIV diagnosed in 2014 with undetectable viral load seen the emergency room complaining of nausea and vomiting with associated abdominal pain which has been ongoing for the past 2 days. Evaluation in the emergency room including CT scan of the abdomen and pelvis showed:Acute appendicitis with large appendicolith. Ascites and small bowel distention (adynamic ileus) are thought to be secondary to the inflammatory process. General surgeon Dr. Austin has been consulted by the ER physician. 05/27: Patient has been placed on IV fluid, IV analgesic medication and empiric IV antibiotics.Patient taken to OR: s/p open appendectomy via ex lap and Drainage of abscess. Cont iv zosyn, follow cx, iv fluid. 05/28: advance NG tube per abd xry as not in right position. patient with ileus - cont NG suction, await bowel fct return; NPO, cont IVF 05/29: Ambulate the pt. still w/o flatus, had no BM. cont NPO/NGT suction/IVF. ID and GS following Subjective Date of service: 05/29/20 Interval history: Patient seen and examined s/p surgery 05/27 -tolerated well on NG suction , c/o abdominal pain Objective - Exam Narrative Exam: Constitutional: Alert, cooperative. No acute distress Head, Ears, Nose: Normocephalic, atraumatic. External ears, nose normal Eyes: Conjunctivae/corneas clear. No icterus. No ptosis. Neck: Supple, no meningeal signs Oral: dentition fair, no thrush Cardiovascular: S1, S2 normal. Respiratory: Good air entry, clear to auscultation bilaterally GI: Midline incision with dressing, drain with serous output, bowel sounds hypoactive Musculoskeletal: No pedal edema, no cyanosis. Skin: No rash or abscess Psych: Mood ok. Affect normal Neurological: Awake, alert, oriented. No gross abnormality - Constitutional Vitals: Vital Signs - 12hr 05/29/20 05/29/20 05/29/20 04:48 07:42 10:00 Temperature 99.1 F 99.2 F Pulse Rate 104 H 97 H Respiratory 18 18 Rate Blood Pressure 138/75 143/78 O2 Sat by Pulse 98 96 98 Oximetry 05/29/20 11:21 Temperature 99.6 F Pulse Rate 100 H Respiratory 18 Rate Blood Pressure 135/77 O2 Sat by Pulse 96 Oximetry - Labs CBC & Chem 7: 05/30/20 07:53 05/30/20 07:53 Labs: Abnormal lab results 05/29/20 Range/Units 10:43 Creatinine 0.7 L (0.8-1.3) mg/dL Glucose 73 L (75-100) mg/dL Calcium 8.3 L (8.4-10.2) mg/dL
[2020-05-29] MEDS: LORazepam 2 MG/ML VIAL IV PRN (15:23)
--- NOTE | 2020-05-29 15:59 | Consultation ---
History of Present Illness - Reason for Consult Consult date: 05/29/20 HIV, peritonitis Requesting physician: RUDY MANCILLA - History of Present Illness The patient is a 24-year-old male with HIV, admitted to the hospital on 05/27/2020 with complaints of abdominal pain. Is worse going on for about 2 days prior to admission, he also had some nausea and vomiting. Upon evaluation, was found to have ruptured appendix and was taken to the operating room, on 05/27/2020, he underwent an open appendectomy, was found to have gross purulence with peritonitis with pus throughout his abdomen. Infectious diseases was consulted for additional evaluation. Patient is currently afebrile. HIV was diagnosed about 5 years ago, in [place]. Patient has been on p.o. Biktarvy, follows up at an HIV clinic in [place]. Has been undetectable for the last 4 years, never had a low CD4 count. Review of Systems: General: no fevers,chills or rigors HEENT: no new visual disturbance Respiratory: No cough, sputum, hemoptysis or shortness of breath Cardiovascular: No chest pain, syncope Gastrointestinal: abdominal pain, controlled Genitourinary: No dysuria or hematuria Musculoskeletal: No new or worsening neck pain or back pain Neurologic: No headaches, seizures Hematologic: No easy bruising or bleeding Endocrine: No night sweats or acute weight loss Skin: negative for rash, jaundice Psychiatric: No suicidal or homicidal ideation Past History Past Medical History: other (HIV positive) Past Surgical History: No surgical history, Other (hx testicular torsion sx with no anes/bleeding comps) Social history: no significant social history Family history: no significant family history Medications and Allergies Allergies Allergy/AdvReac Type Severity Reaction Status Date / Time No Known Allergies Allergy Unverified 05/27/20 02:09 Active Meds: Active Medications Acetaminophen (Tylenol) 650 mg PO Q4H PRN PRN Reason: Pain MILD(1-3)/Fever >100.5/MENDEZ Heparin Sodium (Porcine) (Heparin) 5,000 unit SUB-Q Q8HR AMOR Last Admin: 05/29/20 14:20 Dose: 5,000 unit Documented by: Hydromorphone HCl (Dilaudid) 1 mg IV Q4H PRN PRN Reason: Pain , Severe (7-10) Last Admin: 05/29/20 14:17 Dose: 1 mg Documented by: Piperacillin Sod/Tazobactam Sod (Zosyn/Ns 4.5gm/100ml) 4.5 gm in 100 mls @ 200 mls/hr IV Q8HR AMOR; Protocol Last Admin: 05/29/20 14:18 Dose: 200 mls/hr Documented by: Dextrose/Sodium Chloride (D5ns) 1,000 mls @ 100 mls/hr IV DIRECT AMOR Lorazepam (Ativan) 1 mg IV Q4H PRN PRN Reason: Anxiety Last Admin: 05/29/20 15:23 Dose: 1 mg Documented by: Morphine Sulfate (Morphine) 2 mg IV Q4H PRN PRN Reason: Pain, Moderate (4-6) Last Admin: 05/28/20 03:57 Dose: 2 mg Documented by: Ondansetron HCl (Zofran) 4 mg IV Q8H PRN PRN Reason: Nausea And Vomiting Last Admin: 05/28/20 03:57 Dose: 4 mg Documented by: Oxycodone/Acetaminophen (Percocet 5/325) 2 tab PO Q4H PRN PRN Reason: Pain, Moderate (4-6) Phenol (Chloraseptic) 1 spray MM PRN PRN PRN Reason: Sore Throat Last Admin: 05/27/20 21:54 Dose: 1 spray Documented by: Sodium Chloride (Sodium Chloride Flush Syringe 10 Ml) 10 ml IV BID AMOR Last Admin: 05/29/20 10:00 Dose: 10 ml Documented by: Sodium Chloride (Sodium Chloride Flush Syringe 10 Ml) 10 ml IV PRN PRN PRN Reason: LINE FLUSH Physical Examination - Physical Exam Narrative exam: Physical Exam: Constitutional: Alert, cooperative. No acute distress Head, Ears, Nose: Normocephalic, atraumatic. External ears, nose normal Eyes: Conjunctivae/corneas clear. No icterus. No ptosis. Neck: Supple, no meningeal signs Oral: dentition fair, no thrush Cardiovascular: S1, S2 normal. Respiratory: Good air entry, clear to auscultation bilaterally GI: Midline incision with dressing, drain with serous output, bowel sounds hypoactive Musculoskeletal: No pedal edema, no cyanosis. Skin: No rash or abscess Hem/Lymphatic: No palpable cervical or supraclavicular nodes. No lymphangitis Psych: Mood ok. Affect normal Neurological: Awake, alert, oriented. No gross abnormality - Constitutional Vitals: Vital Signs Temp Pulse Resp BP Pulse Ox 99.6 F 100 H 18 135/77 96 05/29/20 11:21 05/29/20 11:21 05/29/20 11:21 05/29/20 11:21 05/29/20 11:21 Temperature -Last 24 Hours Temperature 99.6 F Temperature 99.2 F Temperature 99.1 F Temperature 99.4 F Temperature 98.8 F Temperature 99.0 F Results - Labs CBC & Chem 7: 05/28/20 07:44 05/29/20 10:43 Labs: Abnormal lab results 05/29/20 Range/Units 10:43 Creatinine 0.7 L (0.8-1.3) mg/dL Glucose 73 L (75-100) mg/dL Calcium 8.3 L (8.4-10.2) mg/dL Assessment and Plan Cultures: 05/27/2020 peritoneal culture from OR: Pseudomonas aeruginosa, E. coli, beta- hemolytic Streptococcus group C A/P: 24-year-old male with HIV, admitted to the hospital on 05/27/2020 with complaints of abdominal pain: #Acute appendicitis with perforation and peritonitis with gross purulence: Status post open appendectomy and washout. #HIV disease: Diagnosed in 2014, has been in excellent control with undetectable viral load for the last 4 years, on p.o. Biktarvy. Follows up at an HIV clinic in [place]. Recs: Empiric IV cefepime, Flagyl and fluconazole Restart p.o. Biktarvy in AM, nonformulary, patient will have his best friend bring it in. Patient declined therapeutic alternative Suhail Devi MD, FACP [facility] O: [phone] F: [phone]
[2020-05-29] MEDS: CEFEPIME/NS 2 GM/100 ML 2 GM/100 ML BAG IV SCH ×2 (17:37→22:42)
[2020-05-29] MEDS: metroNIDAZOLE/NS 500 MG/100 ML 500 MG/100 ML BAG IV SCH ×2 (17:39→21:48)
[2020-05-29] MEDS: MORPHINE 2 MG/1 ML INJ IV PRN (17:39)
[2020-05-29] MEDS: FLUCONAZOLE 200 MG 200 MG/100 ML BAG IV SCH (19:45)
[2020-05-29] MEDS: ONDANSETRON 4 MG/2 ML INJ IV PRN (21:46)
[2020-05-30] MEDS: HYDROmorphone 1 MG/1 ML INJ IV PRN ×5 (02:22→23:55)
[2020-05-30] MEDS: D5W/0.9% NACL 1,000 ML IV SCH ×2 (02:25→12:07)
[2020-05-30] MEDS: metroNIDAZOLE/NS 500 MG/100 ML 500 MG/100 ML BAG IV SCH ×3 (05:44→22:25)
[2020-05-30] MEDS: HEPARIN 5,000 UNIT/1 ML VIAL SUB-Q SCH ×3 (05:47→22:24)
[2020-05-30] MEDS: MORPHINE 2 MG/1 ML INJ IV PRN (07:56)
[2020-05-30 09:15] LABS: Basophils % (Auto) 0.2 % (0.0-1.8); Eosinophils # (Auto) 0.2 K/mm3 (0.0-0.4); Hematocrit 32.9 % (35.5-45.6); Hemoglobin 11.1 gm/dl (11.8-15.2); Lymphocytes # (Auto) 0.8 K/mm3 (1.2-5.4); Lymphocytes % (Auto) 7.8 % (13.4-35.0); Mean Corpuscular HGB Conc 34 % (32-34); Mean Corpuscular Volume 100 fl (84-94); Monocytes # (Auto) 1.2 K/mm3 (0.0-0.8); Monocytes % (Auto) 11.9 % (0.0-7.3); Platelet Count 215 K/mm3 (140-440); Red Blood Count 3.28 M/mm3 (3.65-5.03); Red Cell Distribution Width 12.3 % (13.2-15.2)
[2020-05-30] MEDS: CEFEPIME/NS 2 GM/100 ML 2 GM/100 ML BAG IV SCH ×2 (09:23→22:25)
[2020-05-30 09:44] LABS: Blood Urea Nitrogen 10 mg/dL (9-20); Calcium 7.8 mg/dL (8.4-10.2); Hemolysis Index 8
[2020-05-30 09:45] LABS: BUN/Creatinine Ratio 14
[2020-05-30] MEDS ORDERED: NON-FORMULARY EACH (Biktarvy 1 TAB) PO SCH (10:00)
[2020-05-30] MEDS: FLUCONAZOLE 200 MG 200 MG/100 ML BAG IV SCH (10:05)
[2020-05-30] MEDS ORDERED: diazePAM 10 MG/2 ML SYRINGE IV PRN (10:22)
--- NOTE | 2020-05-30 10:22 | Progress Note ---
Objective Vital Signs - 12hr 05/29/20 05/30/20 05/30/20 22:38 05:12 07:09 Temperature 99.8 F H 97.9 F 99.4 F Pulse Rate 106 H 103 H 100 H Respiratory 18 18 24 Rate Blood Pressure 148/77 134/73 139/75 O2 Sat by Pulse 96 97 98 Oximetry - Labs 05/30/20 07:53 05/30/20 07:53 Diabetes panel 05/29/20 05/30/20 Range/Units 10:43 07:53 Sodium 141 140 (137-145) mmol/L Potassium 3.9 3.4 L (3.6-5.0) mmol/L Chloride 102.2 104.1 (98-107) mmol/L Carbon Dioxide 22 28 (22-30) mmol/L BUN 10 10 (9-20) mg/dL Creatinine 0.7 L 0.7 L (0.8-1.3) mg/dL Glucose 73 L 103 H (75-100) mg/dL Calcium 8.3 L 7.8 L (8.4-10.2) mg/dL Calcium panel 05/29/20 05/30/20 Range/Units 10:43 07:53 Calcium 8.3 L 7.8 L (8.4-10.2) mg/dL Pituitary panel 05/29/20 05/30/20 Range/Units 10:43 07:53 Sodium 141 140 (137-145) mmol/L Potassium 3.9 3.4 L (3.6-5.0) mmol/L Chloride 102.2 104.1 (98-107) mmol/L Carbon Dioxide 22 28 (22-30) mmol/L BUN 10 10 (9-20) mg/dL Creatinine 0.7 L 0.7 L (0.8-1.3) mg/dL Glucose 73 L 103 H (75-100) mg/dL Calcium 8.3 L 7.8 L (8.4-10.2) mg/dL Adrenal panel 05/29/20 05/30/20 Range/Units 10:43 07:53 Sodium 141 140 (137-145) mmol/L Potassium 3.9 3.4 L (3.6-5.0) mmol/L Chloride 102.2 104.1 (98-107) mmol/L Carbon Dioxide 22 28 (22-30) mmol/L BUN 10 10 (9-20) mg/dL Creatinine 0.7 L 0.7 L (0.8-1.3) mg/dL Glucose 73 L 103 H (75-100) mg/dL Calcium 8.3 L 7.8 L (8.4-10.2) mg/dL
--- NOTE | 2020-05-30 10:29 | Progress Note ---
Assessment and Plan POD#4 WBC trending up with left shift; may obtain CT to [facility] for abscess in next few days. Valium for anxiety and muscular back pain; PT consult; pt again counseled to ambulate several times/day Cont abx per ID (cx noted- mult organisms)/cont drain Wound team to place vac Subjective Date of service: 05/30/20 Patient Reports: Positive: no new complaints, still having pain, no flatus, no bowel movement (not ambulating as asked to do x2 days; no GI fct; LLQ drain pulled out beyond bnlakc dot- no suction; pain controlled) Narrative: Pt very scared and almost tearful; c/o back pain (muscular) from not ambulating Objective Vital Signs - 12hr 05/29/20 05/30/20 05/30/20 22:38 05:12 07:09 Temperature 99.8 F H 97.9 F 99.4 F Pulse Rate 106 H 103 H 100 H Respiratory 18 18 24 Rate Blood Pressure 148/77 134/73 139/75 O2 Sat by Pulse 96 97 98 Oximetry - Abdomen soft, bowel sounds hypoactive, distended, wound (open midline wound- drsg ok; JACEK-serosang x2) - Labs 05/30/20 07:53 05/30/20 07:53 Diabetes panel 05/29/20 05/30/20 Range/Units 10:43 07:53 Sodium 141 140 (137-145) mmol/L Potassium 3.9 3.4 L (3.6-5.0) mmol/L Chloride 102.2 104.1 (98-107) mmol/L Carbon Dioxide 22 28 (22-30) mmol/L BUN 10 10 (9-20) mg/dL Creatinine 0.7 L 0.7 L (0.8-1.3) mg/dL Glucose 73 L 103 H (75-100) mg/dL Calcium 8.3 L 7.8 L (8.4-10.2) mg/dL Calcium panel 05/29/20 05/30/20 Range/Units 10:43 07:53 Calcium 8.3 L 7.8 L (8.4-10.2) mg/dL Pituitary panel 05/29/20 05/30/20 Range/Units 10:43 07:53 Sodium 141 140 (137-145) mmol/L Potassium 3.9 3.4 L (3.6-5.0) mmol/L Chloride 102.2 104.1 (98-107) mmol/L Carbon Dioxide 22 28 (22-30) mmol/L BUN 10 10 (9-20) mg/dL Creatinine 0.7 L 0.7 L (0.8-1.3) mg/dL Glucose 73 L 103 H (75-100) mg/dL Calcium 8.3 L 7.8 L (8.4-10.2) mg/dL Adrenal panel 05/29/20 05/30/20 Range/Units 10:43 07:53 Sodium 141 140 (137-145) mmol/L Potassium 3.9 3.4 L (3.6-5.0) mmol/L Chloride 102.2 104.1 (98-107) mmol/L Carbon Dioxide 22 28 (22-30) mmol/L BUN 10 10 (9-20) mg/dL Creatinine 0.7 L 0.7 L (0.8-1.3) mg/dL Glucose 73 L 103 H (75-100) mg/dL Calcium 8.3 L 7.8 L (8.4-10.2) mg/dL
--- NOTE | 2020-05-30 13:33 | Progress Note ---
Assessment and Plan -- Acute appendicitis with abscess Patient placed on IV fluid and empiric IV antibiotics. General surgeon Dr. Austin has been consulted. s/p open appendectomy via ex lap and Drainage of abscess. Cont iv zosyn, follow cx, cont on IV analgesic medication, IV fluid and IV Zofran as needed. Patient will be kept n.p.o. --Sepsis, due to Acute appendicitis with large appendicolith cont abx, follow ID recommendation --adynamic ileus cont NG suction, GS following serial abd xry -- Nausea and vomiting in adult Probably secondary to the appendicitis. cont on IV analgesic medication, IV fluid and IV Zofran as needed. -- HIV hold meds for now, ID consult -- DVT Px Patient placed on sequential compression device. Brief History: 24-year-old -[place] male with known history of HIV diagnosed in 2014 with undetectable viral load seen the emergency room complaining of nausea and vomiting with associated abdominal pain which has been ongoing for the past 2 days. Evaluation in the emergency room including CT scan of the abdomen and pelvis showed:Acute appendicitis with large appendicolith. Ascites and small bowel distention (adynamic ileus) are thought to be secondary to the inflammatory process. General surgeon Dr. Austin has been consulted by the ER physician. 05/27: Patient has been placed on IV fluid, IV analgesic medication and empiric IV antibiotics. Patient taken to OR: s/p open appendectomy via ex lap and Drainage of abscess. Cont iv zosyn, follow cx, iv fluid. 05/28: advance NG tube per abd xry as not in right position. patient with ileus - cont NG suction, await bowel fct return; NPO, cont IVF 05/29: Ambulate the pt. still w/o flatus, had no BM. cont NPO/NGT suction/IVF. ID and GS following 05/30: had no BM yet. WBC slightly trended up. may need to obtain CT to [place] for abscess in next few days. cont Valium for anxiety and muscular back pain; PT consulted; pt counseled to ambulate several times/day. Cont abx per ID (cx noted- mult organisms)/cont drain. Wound team to place vac. Subjective Date of service: 05/30/20 Interval history: Patient seen and examined s/p surgery 05/27 -tolerated well remains on NG suction-POD 4 , c/o abdominal pain No BM yet Objective - Exam Narrative Exam: Constitutional: Alert, cooperative. No acute distress Head, Ears, Nose: Normocephalic, atraumatic. External ears, nose normal Eyes: Conjunctivae/corneas clear. No icterus. No ptosis. Neck: Supple, no meningeal signs Oral: dentition fair, no thrush Cardiovascular: S1, S2 normal. Respiratory: Good air entry, clear to auscultation bilaterally GI: Midline incision with dressing, drain with serous output, bowel sounds hypoactive Musculoskeletal: No pedal edema, no cyanosis. Skin: No rash or abscess Psych: Mood ok. Affect normal Neurological: Awake, alert, oriented. No gross abnormality - Constitutional Vitals: Vital Signs - 12hr 05/30/20 05/30/20 05:12 07:09 Temperature 97.9 F 99.4 F Pulse Rate 103 H 100 H Respiratory 18 24 Rate Blood Pressure 134/73 139/75 O2 Sat by Pulse 97 98 Oximetry - Labs CBC & Chem 7: 05/30/20 07:53 05/30/20 07:53 Labs: Abnormal lab results 05/30/20 05/30/20 Range/Units 07:53 07:53 RBC 3.28 L (3.65-5.03) M/mm3 Hgb 11.1 L (11.8-15.2) gm/dl Hct 32.9 L (35.5-45.6) % MCV 100 H (84-94) fl MCH 34 H (28-32) pg RDW 12.3 L (13.2-15.2) % Lymph % (Auto) 7.8 L (13.4-35.0) % [place] % (Auto) 11.9 H (0.0-7.3) % Lymph # (Auto) 0.8 L (1.2-5.4) K/mm3 [place] # (Auto) 1.2 H (0.0-0.8) K/mm3 Seg Neutrophils % 78.1 H (40.0-70.0) % Seg Neutrophils # 8.2 H (1.8-7.7) K/mm3 Potassium 3.4 L (3.6-5.0) mmol/L Creatinine 0.7 L (0.8-1.3) mg/dL Glucose 103 H (75-100) mg/dL Calcium 7.8 L (8.4-10.2) mg/dL
--- NOTE | 2020-05-30 14:29 | Progress Note ---
Assessment and Plan Cultures: 05/27/2020 peritoneal culture from OR: Pseudomonas aeruginosa, E. coli, beta- hemolytic Streptococcus group C A/P: 24-year-old male with HIV, admitted to the hospital on 05/27/2020 with complaints of abdominal pain: #Acute appendicitis with perforation and peritonitis with gross purulence: Status post open appendectomy and washout. #HIV disease: Diagnosed in 2014, has been in excellent control with undetectable viral load for the last 4 years, on p.o. Biktarvy. Follows up at an HIV clinic in [place]. Recs: continue IV Cefepime, Flagyl and fluconazole Restart p.o. Biktarvy, when available, patient will have his best friend bring it in. Patient meanwhile has agreed to Truvada + Tivicay as a therapeutic alternative Suhail Devi MD, FACP [facility] ([facility] O: [phone] F: [phone] Subjective Interval history: No fever. No gas or BM yet. Didn't get his HIV med delivered from home, agrees to take the therapeutic replacement here for now. Objective - Exam Narrative Exam: Physical Exam: Constitutional: Alert, cooperative. No acute distress Head, Ears, Nose: Normocephalic, atraumatic. External ears, nose normal Eyes: Conjunctivae/corneas clear. No icterus. No ptosis. Neck: Supple, no meningeal signs Oral: dentition fair, no thrush Cardiovascular: S1, S2 normal. Respiratory: Good air entry, clear to auscultation bilaterally GI: Midline incision with dressing, drain with serous output, bowel sounds hypoactive Musculoskeletal: No pedal edema, no cyanosis. Skin: No rash or abscess Hem/Lymphatic: No palpable cervical or supraclavicular nodes. No lymphangitis Psych: Mood ok. Affect normal Neurological: Awake, alert, oriented. No gross abnormality - Constitutional Vitals: Vital Signs Temp Pulse Resp BP Pulse Ox 99.4 F 100 H 24 139/75 98 05/30/20 07:09 05/30/20 07:09 05/30/20 07:09 05/30/20 07:09 05/30/20 07:09 Temperature -Last 24 Hours Temperature 99.4 F Temperature 97.9 F Temperature 99.8 F Temperature 99.9 F Temperature 99.1 F - Labs CBC & Chem 7: 05/30/20 07:53 05/30/20 07:53 Labs: Abnormal lab results 05/30/20 05/30/20 Range/Units 07:53 07:53 RBC 3.28 L (3.65-5.03) M/mm3 Hgb 11.1 L (11.8-15.2) gm/dl Hct 32.9 L (35.5-45.6) % MCV 100 H (84-94) fl MCH 34 H (28-32) pg RDW 12.3 L (13.2-15.2) % Lymph % (Auto) 7.8 L (13.4-35.0) % [place] % (Auto) 11.9 H (0.0-7.3) % Lymph # (Auto) 0.8 L (1.2-5.4) K/mm3 [place] # (Auto) 1.2 H (0.0-0.8) K/mm3 Seg Neutrophils % 78.1 H (40.0-70.0) % Seg Neutrophils # 8.2 H (1.8-7.7) K/mm3 Potassium 3.4 L (3.6-5.0) mmol/L Creatinine 0.7 L (0.8-1.3) mg/dL Glucose 103 H (75-100) mg/dL Calcium 7.8 L (8.4-10.2) mg/dL
[2020-05-30] MEDS ORDERED: EMTRICITABINE 200 MG, TENOFOVIR 300 MG PO SCH (15:00)
[2020-05-30] MEDS ORDERED: EMTRICITABINE 200 MG CAP PO SCH (16:00)
[2020-05-30] MEDS ORDERED: DOLUTEGRAVIR 50 MG TAB PO SCH (16:00)
[2020-05-30] MEDS ORDERED: TENOFOVIR 300 MG TAB PO SCH (16:00)
[2020-05-30] MEDS: BICTEGRAV/EMTRICIT/TENOFOV ALA (NF) TAB PO SCH (22:25)
[2020-05-31] MEDS: metroNIDAZOLE/NS 500 MG/100 ML 500 MG/100 ML BAG IV SCH ×3 (05:06→21:02)
[2020-05-31] MEDS: HEPARIN 5,000 UNIT/1 ML VIAL SUB-Q SCH ×3 (05:08→21:03)
[2020-05-31] MEDS: MORPHINE 2 MG/1 ML INJ IV PRN (05:13)
[2020-05-31] MEDS: HYDROmorphone 1 MG/1 ML INJ IV PRN ×3 (08:56→19:00)
[2020-05-31] MEDS: BICTEGRAV/EMTRICIT/TENOFOV ALA (NF) TAB PO SCH ×2 (08:59→10:00)
[2020-05-31] MEDS: CEFEPIME/NS 2 GM/100 ML 2 GM/100 ML BAG IV SCH ×2 (09:00→21:22)
[2020-05-31] MEDS: FLUCONAZOLE 200 MG 200 MG/100 ML BAG IV SCH (09:45)
[2020-05-31] MEDS: ONDANSETRON 4 MG/2 ML INJ IV PRN ×2 (12:26→23:18)
[2020-05-31] MEDS: D5W/0.9% NACL 1,000 ML IV SCH (12:48)
--- NOTE | 2020-05-31 13:55 | Progress Note ---
Assessment and Plan Cultures: 05/27/2020 peritoneal culture from OR: Pseudomonas aeruginosa, E. coli, beta- hemolytic Streptococcus group C A/P: 24-year-old male with HIV, admitted to the hospital on 05/27/2020 with complaints of abdominal pain: #Acute appendicitis with perforation and peritonitis with gross purulence: Status post open appendectomy and washout. #HIV disease: Diagnosed in 2014, has been in excellent control with undetectable viral load for the last 4 years, on p.o. Biktarvy. Follows up at an HIV clinic in [place]. Recs: continue IV Cefepime, Flagyl and fluconazole, D3, plan to switch to PO abx to complete course (total 10 days given extent of infection noted in OR) Restarted p.o. Biktarvy (use patient's own supply), Truvada + Tivicay disc ontinued Suhail Devi MD, FACP [facility] O: [phone] F: [phone] Subjective Date of service: 05/31/20 Interval history: No fever. Passing gas no BM yet. Did get his friend to bring in Biktarvy. Objective - Exam Narrative Exam: Physical Exam: Constitutional: Alert, cooperative. No acute distress Head, Ears, Nose: Normocephalic, atraumatic. External ears, nose normal Eyes: Conjunctivae/corneas clear. No icterus. No ptosis. Neck: Supple, no meningeal signs Cardiovascular: S1, S2 normal. Respiratory: Good air entry, clear to auscultation bilaterally GI: Midline incision with dressing, drain with not much output, bowel sounds + Musculoskeletal: No pedal edema, no cyanosis. Skin: No rash or abscess Hem/Lymphatic: No palpable cervical or supraclavicular nodes. No lymphangitis Psych: Mood ok. Affect normal Neurological: Awake, alert, oriented. No gross abnormality - Constitutional Vitals: Vital Signs Temp Pulse Resp BP Pulse Ox 98.1 F 92 H 18 131/79 99 05/31/20 11:32 05/31/20 11:32 05/31/20 11:32 05/31/20 11:32 05/31/20 11:32 Temperature -Last 24 Hours Temperature 98.1 F Temperature 98.4 F Temperature 98.2 F Temperature 98.7 F Temperature 97.9 F - Labs CBC & Chem 7: 05/30/20 07:53 05/30/20 07:53
--- NOTE | 2020-05-31 13:56 | Progress Note ---
Assessment and Plan Assessment and plan: -- Acute appendicitis with abscess Patient placed on IV fluid and empiric IV antibiotics. General surgeon Dr. Andrew Quarles evaluated and patient had open appendectomy via ex lap and Drainage of abscess. Cont iv zosyn, follow cx, cont on IV analgesic medication, IV fluid and IV Zofran as needed. Patient will be kept n.p.o. --Sepsis, due to Acute appendicitis with large appendicolith cont abx, follow ID recommendation --adynamic ileus cont NG suction, GS following serial abd xry -- Nausea and vomiting in adult Probably secondary to the appendicitis. cont on IV analgesic medication, IV fluid and IV Zofran as needed. -- HIV hold meds for now, ID consult -- DVT Px Patient placed on sequential compression device. Brief History: 24-year-old -[place] male with known history of HIV diagnosed in 2014 with undetectable viral load seen the emergency room complaining of nausea and vomiting with associated abdominal pain which has been ongoing for the past 2 days. Evaluation in the emergency room including CT scan of the abdomen and pelvis showed:Acute appendicitis with large appendicolith. Ascites and small bowel distention (adynamic ileus) are thought to be secondary to the inflammatory process. History Interval history: I have seen and examined the patient at the bedside this morning Patient's chart and medications reviewed Patient complains of vague abdominal pain Reports that he had flatus, did not have bowel movement Request for food,In mild distress Vital signs noted Hospitalist Physical - Constitutional Vitals: Temp Pulse Resp BP Pulse Ox 98.1 F 92 H 18 131/79 99 05/31/20 11:32 05/31/20 11:32 05/31/20 11:32 05/31/20 11:32 05/31/20 11:32 General appearance: Present: no acute distress, well-nourished - EENT Eyes: Present: PERRL, EOM intact ENT: other (Dobbhoff in place) - Neck Neck: Present: supple, normal ROM - Respiratory Respiratory effort: normal Respiratory: bilateral: diminished, rales, negative: rhonchi, wheezing - Cardiovascular Rhythm: regular Heart Sounds: Present: S1 & S2 - Extremities Extremities: no ischemia, No edema - Abdominal General gastrointestinal: soft, tender (No guarding no rigidity), non-distended, absent bowel sounds - Integumentary Integumentary: Present: clear, warm - Psychiatric Psychiatric: appropriate mood/affect, cooperative - Neurologic Neurologic: moves all extremities Results - Labs CBC & Chem 7: 05/31/20 16:15 05/31/20 16:15 Labs: Laboratory Last Values WBC 10.4 K/mm3 (4.5-11.0) 05/30/20 07:53 RBC 3.28 M/mm3 (3.65-5.03) L 05/30/20 07:53 Hgb 11.1 gm/dl (11.8-15.2) L 05/30/20 07:53 Hct 32.9 % (35.5-45.6) L 05/30/20 07:53 MCV 100 fl (84-94) H 05/30/20 07:53 MCH 34 pg (28-32) H 05/30/20 07:53 MCHC 34 % (32-34) 05/30/20 07:53 RDW 12.3 % (13.2-15.2) L 05/30/20 07:53 Plt Count 215 K/mm3 (140-440) 05/30/20 07:53 Lymph % (Auto) 7.8 % (13.4-35.0) L 05/30/20 07:53 [place] % (Auto) 11.9 % (0.0-7.3) H 05/30/20 07:53 Eos % (Auto) 2.0 % (0.0-4.3) 05/30/20 07:53 Baso % (Auto) 0.2 % (0.0-1.8) 05/30/20 07:53 Lymph # (Auto) 0.8 K/mm3 (1.2-5.4) L 05/30/20 07:53 [place] # (Auto) 1.2 K/mm3 (0.0-0.8) H 05/30/20 07:53 Eos # (Auto) 0.2 K/mm3 (0.0-0.4) 05/30/20 07:53 Baso # (Auto) 0.0 K/mm3 (0.0-0.1) 05/30/20 07:53 Add Manual Diff Complete 05/27/20 02:19 Total Counted 100 05/27/20 02:19 Seg Neutrophils % 78.1 % (40.0-70.0) H 05/30/20 07:53 Seg Neuts % (Manual) 87.0 % (40.0-70.0) H 05/27/20 02:19 Band Neutrophils % 0 % 05/27/20 02:19 Lymphocytes % (Manual) 8.0 % (13.4-35.0) L 05/27/20 02:19 Reactive Lymphs % (Man) 0 % 05/27/20 02:19 Monocytes % (Manual) 5.0 % (0.0-7.3) 05/27/20 02:19 Eosinophils % (Manual) 0 % (0.0-4.3) 05/27/20 02:19 Basophils % (Manual) 0 % (0.0-1.8) 05/27/20 02:19 Metamyelocytes % 0 % 05/27/20 02:19 Myelocytes % 0 % 05/27/20 02:19 Promyelocytes % 0 % 05/27/20 02:19 Blast Cells % 0 % 05/27/20 02:19 Nucleated RBC % Not Reportable 05/27/20 02:19 Seg Neutrophils # 8.2 K/mm3 (1.8-7.7) H 05/30/20 07:53 Seg Neutrophils # Man 4.6 K/mm3 (1.8-7.7) 05/27/20 02:19 Band Neutrophils # 0.0 K/mm3 05/27/20 02:19 Lymphocytes # (Manual) 0.4 K/mm3 (1.2-5.4) L 05/27/20 02:19 Abs React Lymphs (Man) 0.0 K/mm3 05/27/20 02:19 Monocytes # (Manual) 0.3 K/mm3 (0.0-0.8) 05/27/20 02:19 Eosinophils # (Manual) 0.0 K/mm3 (0.0-0.4) 05/27/20 02:19 Basophils # (Manual) 0.0 K/mm3 (0.0-0.1) 05/27/20 02:19 Metamyelocytes # 0.0 K/mm3 05/27/20 02:19 Myelocytes # 0.0 K/mm3 05/27/20 02:19 Promyelocytes # 0.0 K/mm3 05/27/20 02:19 Blast Cells # 0.0 K/mm3 05/27/20 02:19 WBC Morphology Not Reportable 05/27/20 02:19 Hypersegmented Neuts Not Reportable 05/27/20 02:19 Hyposegmented Neuts Not Reportable 05/27/20 02:19 Hypogranular Neuts Not Reportable 05/27/20 02:19 Smudge Cells Not Reportable 05/27/20 02:19 Toxic Granulation Not Reportable 05/27/20 02:19 Toxic Vacuolation Not Reportable 05/27/20 02:19 Dohle Bodies Not Reportable 05/27/20 02:19 Pelger-Huet Anomaly Not Reportable 05/27/20 02:19 Ibeth Rods Not Reportable 05/27/20 02:19 Platelet Estimate Consistent w auto 05/27/20 02:19 Clumped Platelets Not Reportable 05/27/20 02:19 Plt Clumps, EDTA Not Reportable 05/27/20 02:19 Large Platelets Not Reportable 05/27/20 02:19 Giant Platelets Not Reportable 05/27/20 02:19 Platelet Satelliting Not Reportable 05/27/20 02:19 Plt Morphology Comment Not Reportable 05/27/20 02:19 RBC Morphology Not Reportable 05/27/20 02:19 Dimorphic RBCs Not Reportable 05/27/20 02:19 Polychromasia Not Reportable 05/27/20 02:19 Hypochromasia Not Reportable 05/27/20 02:19 Poikilocytosis Not Reportable 05/27/20 02:19 Anisocytosis 1+ 05/27/20 02:19 Microcytosis Not Reportable 05/27/20 02:19 Macrocytosis 1+ 05/27/20 02:19 Spherocytes Not Reportable 05/27/20 02:19 Pappenheimer Bodies Not Reportable 05/27/20 02:19 Sickle Cells Not Reportable 05/27/20 02:19 Target Cells Not Reportable 05/27/20 02:19 Tear Drop Cells Not Reportable 05/27/20 02:19 Ovalocytes Not Reportable 05/27/20 02:19 Helmet Cells Not Reportable 05/27/20 02:19 Vil[place]as-Sun Bodies Not Reportable 05/27/20 02:19 [place] Rings Not Reportable 05/27/20 02:19 [place] Cells Not Reportable 05/27/20 02:19 Bite Cells Not Reportable 05/27/20 02:19 Crenated Cell Not Reportable 05/27/20 02:19 Elliptocytes Not Reportable 05/27/20 02:19 Acanthocytes (Spur) Not Reportable 05/27/20 02:19 Rouleaux Not Reportable 05/27/20 02:19 Hemoglobin C Crystals Not Reportable 05/27/20 02:19 Schistocytes Not Reportable 05/27/20 02:19 Malaria parasites Not Reportable 05/27/20 02:19 Bacilio Bodies Not Reportable 05/27/20 02:19 Hem Pathologist Commnt No 05/27/20 02:19 PT 17.4 Sec. (12.2-14.9) H 05/28/20 07:44 INR 1.39 (0.87-1.13) H 05/28/20 07:44 Sodium 140 mmol/L (137-145) 05/30/20 07:53 Potassium 3.4 mmol/L (3.6-5.0) L 05/30/20 07:53 Chloride 104.1 mmol/L (98-107) 05/30/20 07:53 Carbon Dioxide 28 mmol/L (22-30) 05/30/20 07:53 Anion Gap 11 mmol/L 05/30/20 07:53 BUN 10 mg/dL (9-20) 05/30/20 07:53 Creatinine 0.7 mg/dL (0.8-1.3) L 05/30/20 07:53 Estimated GFR > 60 ml/min 05/30/20 07:53 BUN/Creatinine Ratio 14 % 05/30/20 07:53 Glucose 103 mg/dL (75-100) H 05/30/20 07:53 Calcium 7.8 mg/dL (8.4-10.2) L 05/30/20 07:53 Total Bilirubin 1.10 mg/dL (0.1-1.2) 05/27/20 02:19 AST 17 units/L (5-40) 05/27/20 02:19 ALT 13 units/L (7-56) 05/27/20 02:19 Alkaline Phosphatase 67 units/L (35-129) 05/27/20 02:19 Total Protein 8.7 g/dL (6.3-8.2) H 05/27/20 02:19 Albumin 4.7 g/dL (3.9-5) 05/27/20 02:19 Albumin/Globulin Ratio 1.2 % 05/27/20 02:19 Lipase 14 units/L (13-60) 05/27/20 02:19 Urine Color Tess (Yellow) 05/27/20 03:15 Urine Turbidity Clear (Clear) 05/27/20 03:15 Urine pH 6.0 (5.0-7.0) 05/27/20 03:15 Ur Specific [place] 1.038 (1.003-1.030) H 05/27/20 03:15 Urine Protein 100 mg/dl mg/dL (Negative) 05/27/20 03:15 Urine Glucose (UA) Neg mg/dL (Negative) 05/27/20 03:15 Urine Ketones 80 mg/dL (Negative) 05/27/20 03:15 Urine Blood Neg (Negative) 05/27/20 03:15 Urine Nitrite Neg (Negative) 05/27/20 03:15 Urine Bilirubin Neg (Negative) 05/27/20 03:15 Urine Urobilinogen 2.0 mg/dL (<2.0) 05/27/20 03:15 Ur Leukocyte Esterase Neg (Negative) 05/27/20 03:15 Urine WBC (Auto) 1.0 /HPF (0.0-6.0) 05/27/20 03:15 Urine RBC (Auto) 8.0 /HPF (0.0-6.0) 05/27/20 03:15 U Epithel Cells (Auto) 1.0 /HPF (0-13.0) 05/27/20 03:15 Urine Mucus 3+ /HPF 05/27/20 03:15 Microbiology: Microbiology 05/27/20 11:20 Abdomen Anaerobic Culture - Preliminary Velazquez/IV: Voiding Method Urinal IV Catheter Type [Right INT / Saline Lock Forearm] IV Catheter Type [Left Distal INT / Saline Lock Port Antecubital] Active Medications - Current Medications Current Medications: Generic Name Dose Route Start Last Admin Trade Name Freq PRN Reason Stop Dose Admin Acetaminophen 650 mg 05/27/20 05:32 Tylenol PO Q4H PRN Pain MILD(1-3)/Fever >100.5/MENDEZ Diazepam 10 mg 05/30/20 10:22 Valium IV Q6H PRN Agitation Heparin Sodium (Porcine) 5,000 unit 05/27/20 14:00 05/31/20 05:08 Heparin SUB-Q 5,000 unit Q8HR AMOR Administration Hydromorphone HCl 1 mg 05/27/20 13:14 05/31/20 08:56 Dilaudid IV 1 mg Q4H PRN Administration Pain , Severe (7-10) Dextrose/Sodium Chloride 1,000 mls @ 100 mls/hr 05/29/20 15:00 05/31/20 12:48 D5ns IV 100 mls/hr DIRECT AMOR Administration Cefepime HCl 2 gm in 100 mls @ 200 mls/hr 05/29/20 16:00 05/31/20 09:00 Cefepime/Ns 2 Gm/100 Ml IV 200 mls/hr Q12HR AMOR Administration Protocol Fluconazole 200 mg in 100 mls @ 100 mls/hr 05/29/20 16:00 05/31/20 09:45 Diflucan IV 100 mls/hr Q24HR AMOR Administration Protocol Metronidazole 500 mg in 100 mls @ 100 mls/hr 05/29/20 16:00 05/31/20 05:06 Flagyl 500 Mg/100 Ml IV 100 mls/hr Q8HR AMOR Administration Protocol Lorazepam 1 mg 05/29/20 14:49 05/29/20 15:23 Ativan IV 1 mg Q4H PRN Administration Anxiety Morphine Sulfate 2 mg 05/27/20 05:32 05/31/20 05:13 Morphine IV 2 mg Q4H PRN Administration Pain, Moderate (4-6) Ondansetron HCl 4 mg 05/27/20 05:32 05/31/20 12:26 Zofran IV 4 mg Q8H PRN Administration Nausea And Vomiting Oxycodone/Acetaminophen 2 tab 05/27/20 13:14 Percocet 5/325 PO Q4H PRN Pain, Moderate (4-6) Phenol 1 spray 05/27/20 13:14 05/27/20 21:54 Chloraseptic MM 1 spray PRN PRN Administration Sore Throat Sodium Chloride 10 ml 05/27/20 10:00 05/31/20 09:01 Sodium Chloride Flush Syringe 10 Ml IV 10 ml BID AMOR Administration Sodium Chloride 10 ml 05/27/20 05:32 Sodium Chloride Flush Syringe 10 Ml IV PRN PRN LINE FLUSH
[2020-05-31 16:31] LABS: Basophils # (Auto) 0.1 K/mm3 (0.0-0.1); Basophils % (Auto) 1.1 % (0.0-1.8); Eosinophils # (Auto) 0.1 K/mm3 (0.0-0.4); Eosinophils % (Auto) 1.4 % (0.0-4.3); Hematocrit 33.9 % (35.5-45.6); Hemoglobin 11.3 gm/dl (11.8-15.2); Lymphocytes # (Auto) 0.8 K/mm3 (1.2-5.4); Lymphocytes % (Auto) 7.8 % (13.4-35.0); Mean Corpuscular HGB Conc 33 % (32-34); Mean Corpuscular Volume 101 fl (84-94); Monocytes # (Auto) 1.2 K/mm3 (0.0-0.8); Monocytes % (Auto) 12.2 % (0.0-7.3); Platelet Count 244 K/mm3 (140-440); Red Blood Count 3.37 M/mm3 (3.65-5.03)
[2020-05-31 16:51] LABS: BUN/Creatinine Ratio 13; Blood Urea Nitrogen 8 mg/dL (9-20); Calcium 8.1 mg/dL (8.4-10.2); Hemolysis Index 8
--- NOTE | 2020-05-31 17:15 | Progress Note ---
Assessment and Plan POD#4 Cont abx/drains Await further flatus until removal of NGT. Will likely close wound just prior to d/c as wound carer RN has informed me that pt has no insurance and will not likely be able to have vac at home. Subjective Date of service: 05/31/20 Patient Reports: Positive: feels better, pain is less, flatus, no bowel movement, other (ambulated once yest; +small amt flatus; no BM; pain better controlled) Objective Vital Signs - 12hr 05/31/20 05/31/20 05/31/20 07:26 11:32 16:36 Temperature 98.4 F 98.1 F 98.5 F Pulse Rate 91 H 92 H 84 Respiratory 18 18 18 Rate Blood Pressure 137/80 131/79 142/82 O2 Sat by Pulse 100 99 99 Oximetry - Abdomen soft, bowel sounds hypoactive, distended, wound (+vac; approp TTP; left drain not holding suction; right-serosang) - Labs 05/31/20 16:15 05/31/20 16:15 Diabetes panel 05/31/20 Range/Units 16:15 Sodium 140 (137-145) mmol/L Potassium 3.3 L (3.6-5.0) mmol/L Chloride 102.1 (98-107) mmol/L Carbon Dioxide 24 (22-30) mmol/L BUN 8 L (9-20) mg/dL Creatinine 0.6 L (0.8-1.3) mg/dL Glucose 107 H (75-100) mg/dL Calcium 8.1 L (8.4-10.2) mg/dL Calcium panel 05/31/20 Range/Units 16:15 Calcium 8.1 L (8.4-10.2) mg/dL Pituitary panel 05/31/20 Range/Units 16:15 Sodium 140 (137-145) mmol/L Potassium 3.3 L (3.6-5.0) mmol/L Chloride 102.1 (98-107) mmol/L Carbon Dioxide 24 (22-30) mmol/L BUN 8 L (9-20) mg/dL Creatinine 0.6 L (0.8-1.3) mg/dL Glucose 107 H (75-100) mg/dL Calcium 8.1 L (8.4-10.2) mg/dL Adrenal panel 05/31/20 Range/Units 16:15 Sodium 140 (137-145) mmol/L Potassium 3.3 L (3.6-5.0) mmol/L Chloride 102.1 (98-107) mmol/L Carbon Dioxide 24 (22-30) mmol/L BUN 8 L (9-20) mg/dL Creatinine 0.6 L (0.8-1.3) mg/dL Glucose 107 H (75-100) mg/dL Calcium 8.1 L (8.4-10.2) mg/dL
[2020-05-31] MEDS: oxyCODONE /ACETAMINOPHEN 5-325MG TAB PO PRN (21:02)
[2020-05-31] MEDS: POTASSIUM CHLORIDE 10 MEQ 10 MEQ/100 ML BAG IV SCH ×2 (22:27→23:27)
[2020-06-01] MEDS: HYDROmorphone 1 MG/1 ML INJ IV PRN ×4 (00:50→17:51)
[2020-06-01] MEDS: POTASSIUM CHLORIDE 10 MEQ 10 MEQ/100 ML BAG IV SCH ×6 (04:47→21:28)
[2020-06-01] MEDS: metroNIDAZOLE/NS 500 MG/100 ML 500 MG/100 ML BAG IV SCH ×3 (05:52→22:35)
[2020-06-01] MEDS: HEPARIN 5,000 UNIT/1 ML VIAL SUB-Q SCH ×3 (06:25→22:36)
[2020-06-01] MEDS: CEFEPIME/NS 2 GM/100 ML 2 GM/100 ML BAG IV SCH ×2 (11:11→22:35)
[2020-06-01] MEDS: ONDANSETRON 4 MG/2 ML INJ IV PRN ×2 (11:12→20:39)
[2020-06-01] MEDS: BICTEGRAV/EMTRICIT/TENOFOV ALA (NF) TAB PO SCH (11:12)
[2020-06-01] MEDS: FLUCONAZOLE 200 MG 200 MG/100 ML BAG IV SCH (11:12)
[2020-06-01 11:36] LABS: Hematocrit 32.2 % (35.5-45.6); Mean Corpuscular HGB Conc 34 % (32-34); Mean Corpuscular Volume 100 fl (84-94); Platelet Count 282 K/mm3 (140-440); Red Blood Count 3.23 M/mm3 (3.65-5.03); Red Cell Distribution Width 12.1 % (13.2-15.2)
[2020-06-01 11:54] LABS: Blood Urea Nitrogen 7 mg/dL (9-20); Calcium 8.1 mg/dL (8.4-10.2); Hemolysis Index 3
[2020-06-01 11:55] LABS: BUN/Creatinine Ratio 14
--- NOTE | 2020-06-01 12:19 | Progress Note ---
Assessment and Plan Cultures: 05/27/2020 peritoneal culture from OR: Pseudomonas aeruginosa, E. coli, beta- hemolytic Streptococcus group C A/P: 24-year-old male with HIV, admitted to the hospital on 05/27/2020 with complaints of abdominal pain: #Acute appendicitis with perforation and peritonitis with gross purulence: Status post open appendectomy and washout. Per d/w Dr. Morales, there was gross purulence in the peritoneal cavity. #HIV disease: Diagnosed in 2014, has been in excellent control with undetectable viral load for the last 4 years, on p.o. Biktarvy. Follows up at an HIV clinic in [place]. Recs: continue IV Cefepime, Flagyl and fluconazole, D4, when he is able to tolerate PO, switch to PO abx (Levofloxacin + Flagyl) to complete course (total 10 days given extent of infection noted in OR) continue p.o. Biktarvy (use patient's own supply) Upon discharge, patient to follow up with his existing HIV provider Suhail Devi MD, FACP [facility] ([facility] O: [phone] F: [phone] Subjective Date of service: 06/01/20 Interval history: No fever. Passing gas, no BM yet. Objective - Exam Narrative Exam: Physical Exam: Constitutional: Alert, cooperative. No acute distress Head, Ears, Nose: Normocephalic, atraumatic. External ears, nose normal Eyes: Conjunctivae/corneas clear. No icterus. No ptosis. Neck: Supple, no meningeal signs Cardiovascular: S1, S2 normal. Respiratory: Good air entry, clear to auscultation bilaterally GI: Midline incision with VAC, drain +, bowel sounds + Musculoskeletal: No pedal edema, no cyanosis. Skin: No rash or abscess Hem/Lymphatic: No palpable cervical or supraclavicular nodes. No lymphangitis Psych: Mood ok. Affect normal Neurological: Awake, alert, oriented. No gross abnormality - Constitutional Vitals: Vital Signs Temp Pulse Resp BP Pulse Ox 98.3 F 80 17 125/81 96 06/01/20 05:45 06/01/20 05:45 06/01/20 06:51 06/01/20 05:45 06/01/20 05:45 Temperature -Last 24 Hours Temperature 98.3 F Temperature 97.7 F Temperature 98.1 F Temperature 98.5 F - Labs CBC & Chem 7: 06/01/20 11:22 06/01/20 11:22 Labs: Abnormal lab results 05/31/20 05/31/20 06/01/20 Range/Units 16:15 16:15 11:22 RBC 3.37 L 3.23 L (3.65-5.03) M/mm3 Hgb 11.3 L 11.0 L (11.8-15.2) gm/dl Hct 33.9 L 32.2 L (35.5-45.6) % MCV 101 H 100 H (84-94) fl MCH 34 H 34 H (28-32) pg RDW 12.0 L 12.1 L (13.2-15.2) % Lymph % (Auto) 7.8 L (13.4-35.0) % [place] % (Auto) 12.2 H (0.0-7.3) % Lymph # (Auto) 0.8 L (1.2-5.4) K/mm3 [place] # (Auto) 1.2 H (0.0-0.8) K/mm3 Seg Neutrophils % 77.5 H (40.0-70.0) % Potassium 3.3 L (3.6-5.0) mmol/L BUN 8 L (9-20) mg/dL Creatinine 0.6 L (0.8-1.3) mg/dL Glucose 107 H (75-100) mg/dL Calcium 8.1 L (8.4-10.2) mg/dL 06/01/20 Range/Units 11:22 RBC (3.65-5.03) M/mm3 Hgb (11.8-15.2) gm/dl Hct (35.5-45.6) % MCV (84-94) fl MCH (28-32) pg RDW (13.2-15.2) % Lymph % (Auto) (13.4-35.0) % [place] % (Auto) (0.0-7.3) % Lymph # (Auto) (1.2-5.4) K/mm3 [place] # (Auto) (0.0-0.8) K/mm3 Seg Neutrophils % (40.0-70.0) % Potassium 3.2 L (3.6-5.0) mmol/L BUN 7 L (9-20) mg/dL Creatinine 0.5 L (0.8-1.3) mg/dL Glucose 112 H (75-100) mg/dL Calcium 8.1 L (8.4-10.2) mg/dL
--- NOTE | 2020-06-01 13:45 | Progress Note ---
Assessment and Plan POD#6 Ex Lap/ open appy for perf appy with diffuse purulent peritonitis Post-op ileus Cont abx/drain Cont wound vac Remove left drain as ordered for last 2 days. Check KUb to eval suspected ileus in more detail. Pt may need repeat CT scan if fever/inc WBC/persistent ileus/etc. Dr. Ramos to cover weekend- pt aware. Subjective Date of service: 06/01/20 Patient Reports: Positive: no new complaints (pt just rec'd Dilaudid and not wanting to talk (in accordance with his usual affect); per RN, no flatus/BM; pain controlled), no flatus, no bowel movement Objective Vital Signs - 12hr 06/01/20 06/01/20 06/01/20 05:45 06:21 06:51 Temperature 98.3 F Pulse Rate 80 Respiratory 17 17 17 Rate Blood Pressure 125/81 [Left] O2 Sat by Pulse 96 Oximetry - Abdomen soft, tender, bowel sounds hypoactive, distended, wound (+vac; right drain- serosang; left- still non-fct; approp TTP; distended) - Labs 06/01/20 11:22 06/01/20 11:22 Diabetes panel 05/31/20 06/01/20 Range/Units 16:15 11:22 Sodium 140 141 (137-145) mmol/L Potassium 3.3 L 3.2 L (3.6-5.0) mmol/L Chloride 102.1 103.2 (98-107) mmol/L Carbon Dioxide 24 25 (22-30) mmol/L BUN 8 L 7 L (9-20) mg/dL Creatinine 0.6 L 0.5 L (0.8-1.3) mg/dL Glucose 107 H 112 H (75-100) mg/dL Calcium 8.1 L 8.1 L (8.4-10.2) mg/dL Calcium panel 05/31/20 06/01/20 Range/Units 16:15 11:22 Calcium 8.1 L 8.1 L (8.4-10.2) mg/dL Pituitary panel 05/31/20 06/01/20 Range/Units 16:15 11:22 Sodium 140 141 (137-145) mmol/L Potassium 3.3 L 3.2 L (3.6-5.0) mmol/L Chloride 102.1 103.2 (98-107) mmol/L Carbon Dioxide 24 25 (22-30) mmol/L BUN 8 L 7 L (9-20) mg/dL Creatinine 0.6 L 0.5 L (0.8-1.3) mg/dL Glucose 107 H 112 H (75-100) mg/dL Calcium 8.1 L 8.1 L (8.4-10.2) mg/dL Adrenal panel 05/31/20 06/01/20 Range/Units 16:15 11:22 Sodium 140 141 (137-145) mmol/L Potassium 3.3 L 3.2 L (3.6-5.0) mmol/L Chloride 102.1 103.2 (98-107) mmol/L Carbon Dioxide 24 25 (22-30) mmol/L BUN 8 L 7 L (9-20) mg/dL Creatinine 0.6 L 0.5 L (0.8-1.3) mg/dL Glucose 107 H 112 H (75-100) mg/dL Calcium 8.1 L 8.1 L (8.4-10.2) mg/dL
[2020-06-01 14:38] LABS: Band Neutrophils # (Manual) 0.1 K/mm3; Basophils % (Manual) 0 % (0.0-1.8); Hypochromasia Few; Large Platelets Rare; Platelet Estimate Consistent w Auto; Total Cells Counted 100
--- NOTE | 2020-06-01 16:28 | XRay Report ---
ABDOMEN 1 VIEW INDICATION / CLINICAL INFORMATION: post-op ileus. COMPARISON: KUB from 05/28/2020. FINDINGS: TUBES / LINES: Unchanged right pelvic drain. An esophagogastric tube terminates along the gastric fun dus laterally. The previously seen left lower abdominal drain has been removed. BOWEL GAS PATTERN: There is increased gaseous distention of the small bowel and colon. FREE AIR / EXTRALUMINAL GAS: None seen. ADDITIONAL FINDINGS: No significant additional findings. IMPRESSION: Interval worsening of a probable ileus. Signer Name: Riley Ty MD Signed: 06/01/2020 4:23 PM Workstation Name: [id number]
--- NOTE | 2020-06-01 18:05 | Progress Note ---
Assessment and Plan Assessment and plan: -- Acute appendicitis with abscess Patient placed on IV fluid and empiric IV antibiotics. General surgeon Dr. Andrew Quarles evaluated and patient had open appendectomy via ex lap and Drainage of abscess. Cont iv zosyn, follow cx, cont on IV analgesic medication, IV fluid and IV Zofran as needed. Patient will be kept n.p.o. --Sepsis, due to Acute appendicitis with large appendicolith cont abx, follow ID recommendation --adynamic ileus; worsening ileus Management per surgery -- Nausea and vomiting ; Secondary to worsening ileus antiemetics, analgesics, IV fluids Supportive care -- HIV hold meds for now, ID consult -- DVT Px Patient placed on sequential compression device. We will closely monitor the patient and adjust management as needed Plan of care reviewed with the patient and his nurse Brief History: 24-year-old -[place] male with known history of HIV diagnosed in 2014 with undetectable viral load seen the emergency room complaining of nausea and vomiting with associated abdominal pain which has been ongoing for the past 2 days. Evaluation in the emergency room including CT scan of the abdomen and pelvis showed:Acute appendicitis with large appendicolith. Ascites and small bowel distention (adynamic ileus) are thought to be secondary to the inflammatory process. History Interval history: I have seen and examined the patient at the bedside this afternoon Patient's chart and medications reviewed Patient did not have flatus or bowel movement Has NG tube in place X-ray abdomen; worsening ileus Vital signs noted Hospitalist Physical - Constitutional Vitals: Temp Pulse Resp BP Pulse Ox 98.3 F 80 17 125/81 96 06/01/20 05:45 06/01/20 05:45 06/01/20 06:51 06/01/20 05:45 06/01/20 05:45 General appearance: Present: mild distress, cachectic - EENT Eyes: Present: PERRL, EOM intact - Neck Neck: Present: supple, normal ROM - Respiratory Respiratory effort: normal Respiratory: bilateral: diminished, negative: rales, rhonchi, wheezing - Cardiovascular Rhythm: regular Heart Sounds: Present: S1 & S2 - Extremities Extremities: no ischemia, No edema - Abdominal General gastrointestinal: soft, tender (No guarding no rigidity), distended, absent bowel sounds, other (Wound VAC and drain in place) - Integumentary Integumentary: Present: clear, warm - Psychiatric Psychiatric: appropriate mood/affect, cooperative Results - Labs CBC & Chem 7: 06/01/20 11:22 06/01/20 11:22 Labs: Laboratory Last Values WBC 9.2 K/mm3 (4.5-11.0) 06/01/20 11:22 RBC 3.23 M/mm3 (3.65-5.03) L 06/01/20 11:22 Hgb 11.0 gm/dl (11.8-15.2) L 06/01/20 11:22 Hct 32.2 % (35.5-45.6) L 06/01/20 11:22 MCV 100 fl (84-94) H 06/01/20 11:22 MCH 34 pg (28-32) H 06/01/20 11:22 MCHC 34 % (32-34) 06/01/20 11:22 RDW 12.1 % (13.2-15.2) L 06/01/20 11:22 Plt Count 282 K/mm3 (140-440) 06/01/20 11:22 Lymph % (Auto) 7.8 % (13.4-35.0) L 05/31/20 16:15 [place] % (Auto) 12.2 % (0.0-7.3) H 05/31/20 16:15 Eos % (Auto) 1.4 % (0.0-4.3) 05/31/20 16:15 Baso % (Auto) 1.1 % (0.0-1.8) 05/31/20 16:15 Lymph # (Auto) 0.8 K/mm3 (1.2-5.4) L 05/31/20 16:15 [place] # (Auto) 1.2 K/mm3 (0.0-0.8) H 05/31/20 16:15 Eos # (Auto) 0.1 K/mm3 (0.0-0.4) 05/31/20 16:15 Baso # (Auto) 0.1 K/mm3 (0.0-0.1) 05/31/20 16:15 Add Manual Diff Complete 06/01/20 11:22 Total Counted 100 06/01/20 11:22 Seg Neutrophils % 77.5 % (40.0-70.0) H 05/31/20 16:15 Seg Neuts % (Manual) 85.0 % (40.0-70.0) H 06/01/20 11:22 Band Neutrophils % 1.0 % 06/01/20 11:22 Lymphocytes % (Manual) 9.0 % (13.4-35.0) L 06/01/20 11:22 Reactive Lymphs % (Man) 0 % 06/01/20 11:22 Monocytes % (Manual) 2.0 % (0.0-7.3) 06/01/20 11:22 Eosinophils % (Manual) 2.0 % (0.0-4.3) 06/01/20 11:22 Basophils % (Manual) 0 % (0.0-1.8) 06/01/20 11:22 Metamyelocytes % 1.0 % 06/01/20 11:22 Myelocytes % 0 % 06/01/20 11:22 Promyelocytes % 0 % 06/01/20 11:22 Blast Cells % 0 % 06/01/20 11:22 Nucleated RBC % Not Reportable 06/01/20 11:22 Seg Neutrophils # 7.5 K/mm3 (1.8-7.7) 05/31/20 16:15 Seg Neutrophils # Man 7.8 K/mm3 (1.8-7.7) H 06/01/20 11:22 Band Neutrophils # 0.1 K/mm3 06/01/20 11:22 Lymphocytes # (Manual) 0.8 K/mm3 (1.2-5.4) L 06/01/20 11:22 Abs React Lymphs (Man) 0.0 K/mm3 06/01/20 11:22 Monocytes # (Manual) 0.2 K/mm3 (0.0-0.8) 06/01/20 11:22 Eosinophils # (Manual) 0.2 K/mm3 (0.0-0.4) 06/01/20 11:22 Basophils # (Manual) 0.0 K/mm3 (0.0-0.1) 06/01/20 11:22 Metamyelocytes # 0.1 K/mm3 06/01/20 11:22 Myelocytes # 0.0 K/mm3 06/01/20 11:22 Promyelocytes # 0.0 K/mm3 06/01/20 11:22 Blast Cells # 0.0 K/mm3 06/01/20 11:22 WBC Morphology Not Reportable 06/01/20 11:22 Hypersegmented Neuts Not Reportable 06/01/20 11:22 Hyposegmented Neuts Not Reportable 06/01/20 11:22 Hypogranular Neuts Not Reportable 06/01/20 11:22 Smudge Cells Not Reportable 06/01/20 11:22 Toxic Granulation Not Reportable 06/01/20 11:22 Toxic Vacuolation Not Reportable 06/01/20 11:22 Dohle Bodies Not Reportable 06/01/20 11:22 Pelger-Huet Anomaly Not Reportable 06/01/20 11:22 Ibeth Rods Not Reportable 06/01/20 11:22 Platelet Estimate Consistent w auto 06/01/20 11:22 Clumped Platelets Not Reportable 06/01/20 11:22 Plt Clumps, EDTA Not Reportable 06/01/20 11:22 Large Platelets Rare 06/01/20 11:22 Giant Platelets Not Reportable 06/01/20 11:22 Platelet Satelliting Not Reportable 06/01/20 11:22 Plt Morphology Comment Not Reportable 06/01/20 11:22 RBC Morphology Not Reportable 06/01/20 11:22 Dimorphic RBCs Not Reportable 06/01/20 11:22 Polychromasia Not Reportable 06/01/20 11:22 Hypochromasia Few 06/01/20 11:22 Poikilocytosis Not Reportable 06/01/20 11:22 Anisocytosis Not Reportable 06/01/20 11:22 Microcytosis Not Reportable 06/01/20 11:22 Macrocytosis Not Reportable 06/01/20 11:22 Spherocytes Not Reportable 06/01/20 11:22 Pappenheimer Bodies Not Reportable 06/01/20 11:22 Sickle Cells Not Reportable 06/01/20 11:22 Target Cells Not Reportable 06/01/20 11:22 Tear Drop Cells Not Reportable 06/01/20 11:22 Ovalocytes Not Reportable 06/01/20 11:22 Helmet Cells Not Reportable 06/01/20 11:22 Villegas-Hooper Bodies Not Reportable 06/01/20 11:22 [place] Rings Not Reportable 06/01/20 11:22 [place] Cells Not Reportable 06/01/20 11:22 Bite Cells Not Reportable 06/01/20 11:22 Crenated Cell Not Reportable 06/01/20 11:22 Elliptocytes Not Reportable 06/01/20 11:22 Acanthocytes (Spur) Not Reportable 06/01/20 11:22 Rouleaux Not Reportable 06/01/20 11:22 Hemoglobin C Crystals Not Reportable 06/01/20 11:22 Schistocytes Not Reportable 06/01/20 11:22 Malaria parasites Not Reportable 06/01/20 11:22 Bacilio Bodies Not Reportable 06/01/20 11:22 Hem Pathologist Commnt No 06/01/20 11:22 PT 17.4 Sec. (12.2-14.9) H 05/28/20 07:44 INR 1.39 (0.87-1.13) H 05/28/20 07:44 Sodium 141 mmol/L (137-145) 06/01/20 11:22 Potassium 3.2 mmol/L (3.6-5.0) L 06/01/20 11:22 Chloride 103.2 mmol/L (98-107) 06/01/20 11:22 Carbon Dioxide 25 mmol/L (22-30) 06/01/20 11:22 Anion Gap 16 mmol/L 06/01/20 11:22 BUN 7 mg/dL (9-20) L 06/01/20 11:22 Creatinine 0.5 mg/dL (0.8-1.3) L 06/01/20 11:22 Estimated GFR > 60 ml/min 06/01/20 11:22 BUN/Creatinine Ratio 14 % 06/01/20 11:22 Glucose 112 mg/dL (75-100) H 06/01/20 11:22 Calcium 8.1 mg/dL (8.4-10.2) L 06/01/20 11:22 Total Bilirubin 1.10 mg/dL (0.1-1.2) 05/27/20 02:19 AST 17 units/L (5-40) 05/27/20 02:19 ALT 13 units/L (7-56) 05/27/20 02:19 Alkaline Phosphatase 67 units/L (35-129) 05/27/20 02:19 Total Protein 8.7 g/dL (6.3-8.2) H 05/27/20 02:19 Albumin 4.7 g/dL (3.9-5) 05/27/20 02:19 Albumin/Globulin Ratio 1.2 % 05/27/20 02:19 Lipase 14 units/L (13-60) 05/27/20 02:19 Urine Color Tess (Yellow) 05/27/20 03:15 Urine Turbidity Clear (Clear) 05/27/20 03:15 Urine pH 6.0 (5.0-7.0) 05/27/20 03:15 Ur Specific [place] 1.038 (1.003-1.030) H 05/27/20 03:15 Urine Protein 100 mg/dl mg/dL (Negative) 05/27/20 03:15 Urine Glucose (UA) Neg mg/dL (Negative) 05/27/20 03:15 Urine Ketones 80 mg/dL (Negative) 05/27/20 03:15 Urine Blood Neg (Negative) 05/27/20 03:15 Urine Nitrite Neg (Negative) 05/27/20 03:15 Urine Bilirubin Neg (Negative) 05/27/20 03:15 Urine Urobilinogen 2.0 mg/dL (<2.0) 05/27/20 03:15 Ur Leukocyte Esterase Neg (Negative) 05/27/20 03:15 Urine WBC (Auto) 1.0 /HPF (0.0-6.0) 05/27/20 03:15 Urine RBC (Auto) 8.0 /HPF (0.0-6.0) 05/27/20 03:15 U Epithel Cells (Auto) 1.0 /HPF (0-13.0) 05/27/20 03:15 Urine Mucus 3+ /HPF 05/27/20 03:15 Microbiology: Microbiology 05/27/20 11:20 Abdomen Anaerobic Culture - Final Velazquez/IV: Voiding Method Urinal IV Catheter Type [Right INT / Saline Lock Forearm] IV Catheter Type [Left Distal INT / Saline Lock Port Antecubital] Active Medications - Current Medications Current Medications: Generic Name Dose Route Start Last Admin Trade Name Freq PRN Reason Stop Dose Admin Acetaminophen 650 mg 05/27/20 05:32 Tylenol PO Q4H PRN Pain MILD(1-3)/Fever >100.5/MENDEZ Diazepam 10 mg 05/30/20 10:22 Valium IV Q6H PRN Agitation Heparin Sodium (Porcine) 5,000 unit 05/27/20 14:00 06/01/20 13:10 Heparin SUB-Q 5,000 unit Q8HR AMOR Administration Hydromorphone HCl 1 mg 05/27/20 13:14 06/01/20 17:51 Dilaudid IV 1 mg Q4H PRN Administration Pain , Severe (7-10) Dextrose/Sodium Chloride 1,000 mls @ 100 mls/hr 05/29/20 15:00 05/31/20 12:48 D5ns IV 100 mls/hr DIRECT AMOR Administration Cefepime HCl 2 gm in 100 mls @ 200 mls/hr 05/29/20 16:00 06/01/20 11:11 Cefepime/Ns 2 Gm/100 Ml IV 200 mls/hr Q12HR AMOR Administration Protocol Fluconazole 200 mg in 100 mls @ 100 mls/hr 05/29/20 16:00 06/01/20 11:12 Diflucan IV 100 mls/hr Q24HR AMOR Administration Protocol Metronidazole 500 mg in 100 mls @ 100 mls/hr 05/29/20 16:00 06/01/20 13:10 Flagyl 500 Mg/100 Ml IV 100 mls/hr Q8HR AMOR Administration Protocol Lorazepam 1 mg 05/29/20 14:49 05/29/20 15:23 Ativan IV 1 mg Q4H PRN Administration Anxiety Morphine Sulfate 2 mg 05/27/20 05:32 05/31/20 05:13 Morphine IV 2 mg Q4H PRN Administration Pain, Moderate (4-6) Ondansetron HCl 4 mg 05/27/20 05:32 06/01/20 11:12 Zofran IV 4 mg Q8H PRN Administration Nausea And Vomiting Oxycodone/Acetaminophen 2 tab 05/27/20 13:14 05/31/20 21:02 Percocet 5/325 PO 2 tab Q4H PRN Administration Pain, Moderate (4-6) Phenol 1 spray 05/27/20 13:14 05/27/20 21:54 Chloraseptic MM 1 spray PRN PRN Administration Sore Throat Sodium Chloride 10 ml 05/27/20 10:00 06/01/20 11:13 Sodium Chloride Flush Syringe 10 Ml IV 10 ml BID AMOR Administration Sodium Chloride 10 ml 05/27/20 05:32 Sodium Chloride Flush Syringe 10 Ml IV PRN PRN LINE FLUSH Nutrition/Malnutrition Assess - Dietary Evaluation Nutrition/Malnutrition Findings: Nutrition Notes Start: 06/01/20 12:18 Freq: Status: Active Protocol: Document 06/01/20 12:18 MK (Rec: 06/01/20 12:45 MK [id number]) Nutrition Notes Need for Assessment generated from: LOS Initial or Follow up Assessment Other Pertinent Diagnosis HIV, adynamic ileus, ruptured appendix, abd. wound, ascities Current Diet NPO Labs/Tests K 3.2 BUN 7 Cr 0.5 Pertinent Medications Dilaudid Height 5 ft 9 in Weight 61.5 kg [place] Body Weight (kg) 72.72 BMI 20.0 Intake Prior to Admission Excellent Weight Status Appropriate Subjective/Other Information Screen for LOS. Pt reports no weight loss or appetite changes [employer]. Pt reports feeling hungry. Pt has NGT on LIS with greenish black colored liquid coming out. Pt NPO for 5 days. Per chart, pt NPO until BM and NGT can come out. TPN is recommended if diet is unable to be advanced in two days, commincated with RN. Pt has large surgical wound on abd causing pain. Burn Absent Trauma Absent GI Symptoms Nausea,Vomiting,Last BM,Other Current % PO Negligible Minimum of two criteria No physical signs of malnutrition Energy Intake (severe) < or equal to 50% Estimated Energy Requirement > or equal to 5 days #2 Nutrition Diagnosis Increased nutrient needs ( specify in comment below) Comments: protein Etiology wound healing As Evidenced by Signs and Symptoms surgical wound on abd #1 Nutrition Diagnosis Inadequate oral intake Etiology adynamic ileus As Evidenced by Signs and Symptoms NPO Is patient on ventilator? No Is Patient Ambulatory and/or Out of Bed Yes REE-([place]-St. Jeor-ambulatory/OOB) [ 2066.494 [id number]] Calculation Used for Recommendations [place]-St Jeor Additional Notes Pro: 77-92g (1.25-1.5 g/kg) Fluid: 1 ml/kcal or per MD Nutrition Intervention Change Diet Order: Diet advancement or TPN when medically feasible Goal #1 Diet advancement Follow-Up By: 05/28/20 Additional Comments FU for BM and diet advancement
[2020-06-01] MEDS: D5W/0.9% NACL 1,000 ML IV SCH (18:32)
--- NOTE | 2020-06-01 18:55 | XRay Report ---
Abdomen single view INDICATION: Abdominal pain IMPRESSION: Esophagogastric tube terminates within the upper stomach. Signer Name: Vu Garcia MD Signed: 06/01/2020 6:51 PM Workstation Name: [email or web address]
[2020-06-02] MEDS: HYDROmorphone 1 MG/1 ML INJ IV PRN ×2 (02:19→11:28)
[2020-06-02] MEDS: HEPARIN 5,000 UNIT/1 ML VIAL SUB-Q SCH ×3 (06:24→22:10)
[2020-06-02] MEDS: metroNIDAZOLE/NS 500 MG/100 ML 500 MG/100 ML BAG IV SCH ×3 (06:24→23:04)
[2020-06-02] MEDS: ONDANSETRON 4 MG/2 ML INJ IV PRN ×4 (07:34→20:29)
[2020-06-02] MEDS: FLUCONAZOLE 200 MG 200 MG/100 ML BAG IV SCH ×2 (08:53→09:04)
[2020-06-02] MEDS: CEFEPIME/NS 2 GM/100 ML 2 GM/100 ML BAG IV SCH ×3 (08:53→22:07)
[2020-06-02] MEDS: BICTEGRAV/EMTRICIT/TENOFOV ALA (NF) TAB PO SCH ×2 (08:53→09:05)
[2020-06-02 09:48] LABS: Hematocrit 33.1 % (35.5-45.6); Hemoglobin 11.3 gm/dl (11.8-15.2); Mean Corpuscular HGB Conc 34 % (32-34); Mean Corpuscular Volume 101 fl (84-94); Platelet Count 363 K/mm3 (140-440); Red Blood Count 3.28 M/mm3 (3.65-5.03); Red Cell Distribution Width 12.2 % (13.2-15.2)
[2020-06-02 09:56] LABS: Blood Urea Nitrogen 7 mg/dL (9-20); Calcium 8.2 mg/dL (8.4-10.2); Hemolysis Index 7
[2020-06-02 10:13] LABS: BUN/Creatinine Ratio 14
[2020-06-02 11:24] LABS: Band Neutrophils # (Manual) 0.1 K/mm3; Basophils % (Manual) 0 % (0.0-1.8); Total Cells Counted 100
[2020-06-02 11:25] LABS: Anisocytosis 1+; Platelet Estimate Consistent w Auto
--- NOTE | 2020-06-02 12:49 | Progress Note ---
Assessment and Plan Pt states that he wants to eat, he has dimentia, he states he passed gas, but I am not sure about this, his wound is OK with hypoactive BS will allow ice chips only and reduce iv narcotics, maybe clears tommorrow. Labs OK, no fever. Subjective Date of service: 06/02/20 Patient Reports: Positive: feels better Objective Vital Signs - 12hr 06/02/20 06/02/20 06/02/20 04:04 07:12 11:24 Temperature 98.6 F 98.5 F 98.8 F Pulse Rate 81 81 88 Respiratory 18 18 22 Rate Blood Pressure 125/75 121/76 131/81 O2 Sat by Pulse 98 99 100 Oximetry - General physical appearance no distress - Eyes PERRL, normal occular movement - ENT normal pinna, normal nares, normal mucosa, no hearing loss, no congestion - Neck no masses, no bruits, trachea midline, no lymphadectomy, no venous distension - Respiratory normal expansion, normal respiratory effort, clear to percussion, clear to auscultation - Abdomen soft, bowel sounds hypoactive, other (dressing dry and intact) - Labs 06/02/20 09:14 06/02/20 09:14 Diabetes panel 06/02/20 Range/Units 09:14 Sodium 138 (137-145) mmol/L Potassium 3.3 L (3.6-5.0) mmol/L Chloride 102.6 (98-107) mmol/L Carbon Dioxide 29 (22-30) mmol/L BUN 7 L (9-20) mg/dL Creatinine 0.5 L (0.8-1.3) mg/dL Glucose 101 H (75-100) mg/dL Calcium 8.2 L (8.4-10.2) mg/dL Calcium panel 06/02/20 Range/Units 09:14 Calcium 8.2 L (8.4-10.2) mg/dL Pituitary panel 06/02/20 Range/Units 09:14 Sodium 138 (137-145) mmol/L Potassium 3.3 L (3.6-5.0) mmol/L Chloride 102.6 (98-107) mmol/L Carbon Dioxide 29 (22-30) mmol/L BUN 7 L (9-20) mg/dL Creatinine 0.5 L (0.8-1.3) mg/dL Glucose 101 H (75-100) mg/dL Calcium 8.2 L (8.4-10.2) mg/dL Adrenal panel 06/02/20 Range/Units 09:14 Sodium 138 (137-145) mmol/L Potassium 3.3 L (3.6-5.0) mmol/L Chloride 102.6 (98-107) mmol/L Carbon Dioxide 29 (22-30) mmol/L BUN 7 L (9-20) mg/dL Creatinine 0.5 L (0.8-1.3) mg/dL Glucose 101 H (75-100) mg/dL Calcium 8.2 L (8.4-10.2) mg/dL
--- NOTE | 2020-06-02 12:59 | Progress Note ---
Assessment and Plan hemodyn stable, still alot of NG output, labs OK, continue NG to LIS, try to limit iv narcotics and mobilize patient, labs OK continue present management. Subjective Date of service: 06/02/20 Patient Reports: Positive: no flatus, no bowel movement Objective Vital Signs - 12hr 06/02/20 06/02/20 06/02/20 04:04 07:12 11:24 Temperature 98.6 F 98.5 F 98.8 F Pulse Rate 81 81 88 Respiratory 18 18 22 Rate Blood Pressure 125/75 121/76 131/81 O2 Sat by Pulse 98 99 100 Oximetry - General physical appearance no distress, other (complains about ng) - Eyes PERRL, normal occular movement - ENT normal pinna, normal nares, normal mucosa, no hearing loss, no congestion - Respiratory normal expansion, normal respiratory effort, clear to percussion, clear to auscultation - Abdomen soft, bowel sounds hypoactive, other (wound vac in place) - Psychiatric oriented to time, oriented to person, oriented to place, speech is normal, memory intact - Labs 06/02/20 09:14 06/02/20 09:14 Diabetes panel 06/02/20 Range/Units 09:14 Sodium 138 (137-145) mmol/L Potassium 3.3 L (3.6-5.0) mmol/L Chloride 102.6 (98-107) mmol/L Carbon Dioxide 29 (22-30) mmol/L BUN 7 L (9-20) mg/dL Creatinine 0.5 L (0.8-1.3) mg/dL Glucose 101 H (75-100) mg/dL Calcium 8.2 L (8.4-10.2) mg/dL Calcium panel 06/02/20 Range/Units 09:14 Calcium 8.2 L (8.4-10.2) mg/dL Pituitary panel 06/02/20 Range/Units 09:14 Sodium 138 (137-145) mmol/L Potassium 3.3 L (3.6-5.0) mmol/L Chloride 102.6 (98-107) mmol/L Carbon Dioxide 29 (22-30) mmol/L BUN 7 L (9-20) mg/dL Creatinine 0.5 L (0.8-1.3) mg/dL Glucose 101 H (75-100) mg/dL Calcium 8.2 L (8.4-10.2) mg/dL Adrenal panel 06/02/20 Range/Units 09:14 Sodium 138 (137-145) mmol/L Potassium 3.3 L (3.6-5.0) mmol/L Chloride 102.6 (98-107) mmol/L Carbon Dioxide 29 (22-30) mmol/L BUN 7 L (9-20) mg/dL Creatinine 0.5 L (0.8-1.3) mg/dL Glucose 101 H (75-100) mg/dL Calcium 8.2 L (8.4-10.2) mg/dL
[2020-06-02] MEDS: D5W/0.9% NACL 1,000 ML IV SCH (13:29)
--- NOTE | 2020-06-02 14:14 | Progress Note ---
Assessment and Plan Assessment and plan: -- Acute appendicitis with abscess; s/p open appendectomy via ex lap and Drainage of abscess. Postop care per surgery Patient placed on IV fluid and empiric IV antibiotics. General surgeon Dr. Andrew Quarles evaluated and patient had cont on IV analgesic medication, IV fluid and IV Zofran as needed. Patient is still n.p.o. --Sepsis, due to Acute appendicitis with large appendicolith cont abx, follow ID recommendation --adynamic ileus; worsening ileus Management per surgery, patient n.p.o. intermittent suction -- Nausea and vomiting ; Secondary to worsening ileus antiemetics, analgesics, IV fluids Supportive care -- HIV hold meds for now, ID consult -- DVT Px Patient placed on sequential compression device. We will closely monitor the patient and adjust management as needed Plan of care reviewed with the patient and his nurse Brief History: 24-year-old -[place] Citizen male with known history of HIV diagnosed in 2014 with undetectable viral load seen the emergency room complaining of nausea and vomiting with associated abdominal pain which has been ongoing for the past 2 days. Evaluation in the emergency room including CT scan of the abdomen and pelvis showed:Acute appendicitis with large appendicolith. Ascites and small bowel distention (adynamic ileus) are thought to be secondary to the inflammatory process. History Interval history: I have seen and examined the patient at the bedside Patient's chart and medications reviewed Patient has a lot of NG tube aspirate Patient reports that he had flatus N.p.o. status Surgery following Vital signs noted Hospitalist Physical - Constitutional Vitals: Temp Pulse Resp BP Pulse Ox 98.8 F 88 22 131/81 100 06/02/20 11:24 06/02/20 11:24 06/02/20 11:24 06/02/20 11:24 06/02/20 11:24 General appearance: Present: mild distress, cachectic - EENT Eyes: Present: PERRL, EOM intact - Neck Neck: Present: supple, normal ROM - Respiratory Respiratory effort: normal Respiratory: bilateral: diminished, rales, negative: rhonchi, wheezing - Cardiovascular Rhythm: regular Heart Sounds: Present: S1 & S2 - Extremities Extremities: no ischemia, No edema - Abdominal General gastrointestinal: soft, tender (No guarding no rigidity), distended (Mild), hypoactive bowel sounds - Integumentary Integumentary: Present: clear, warm - Psychiatric Psychiatric: appropriate mood/affect, cooperative, other (Anxious) - Neurologic Neurologic: moves all extremities Results - Labs CBC & Chem 7: 06/02/20 09:14 06/02/20 09:14 Labs: Laboratory Last Values WBC 9.1 K/mm3 (4.5-11.0) 06/02/20 09:14 RBC 3.28 M/mm3 (3.65-5.03) L 06/02/20 09:14 Hgb 11.3 gm/dl (11.8-15.2) L 06/02/20 09:14 Hct 33.1 % (35.5-45.6) L 06/02/20 09:14 MCV 101 fl (84-94) H 06/02/20 09:14 MCH 35 pg (28-32) H 06/02/20 09:14 MCHC 34 % (32-34) 06/02/20 09:14 RDW 12.2 % (13.2-15.2) L 06/02/20 09:14 Plt Count 363 K/mm3 (140-440) 06/02/20 09:14 Lymph % (Auto) 7.8 % (13.4-35.0) L 05/31/20 16:15 Ness % (Auto) 12.2 % (0.0-7.3) H 05/31/20 16:15 Eos % (Auto) 1.4 % (0.0-4.3) 05/31/20 16:15 Baso % (Auto) 1.1 % (0.0-1.8) 05/31/20 16:15 Lymph # (Auto) 0.8 K/mm3 (1.2-5.4) L 05/31/20 16:15 Ness # (Auto) 1.2 K/mm3 (0.0-0.8) H 05/31/20 16:15 Eos # (Auto) 0.1 K/mm3 (0.0-0.4) 05/31/20 16:15 Baso # (Auto) 0.1 K/mm3 (0.0-0.1) 05/31/20 16:15 Add Manual Diff Complete 06/02/20 09:14 Total Counted 100 06/02/20 09:14 Seg Neutrophils % 77.5 % (40.0-70.0) H 05/31/20 16:15 Seg Neuts % (Manual) 71.0 % (40.0-70.0) H 06/02/20 09:14 Band Neutrophils % 1.0 % 06/02/20 09:14 Lymphocytes % (Manual) 13.0 % (13.4-35.0) L 06/02/20 09:14 Reactive Lymphs % (Man) 0 % 06/02/20 09:14 Monocytes % (Manual) 11.0 % (0.0-7.3) H 06/02/20 09:14 Eosinophils % (Manual) 3.0 % (0.0-4.3) 06/02/20 09:14 Basophils % (Manual) 0 % (0.0-1.8) 06/02/20 09:14 Metamyelocytes % 1.0 % 06/02/20 09:14 Myelocytes % 0 % 06/02/20 09:14 Promyelocytes % 0 % 06/02/20 09:14 Blast Cells % 0 % 06/02/20 09:14 Nucleated RBC % Not Reportable 06/02/20 09:14 Seg Neutrophils # 7.5 K/mm3 (1.8-7.7) 05/31/20 16:15 Seg Neutrophils # Man 6.5 K/mm3 (1.8-7.7) 06/02/20 09:14 Band Neutrophils # 0.1 K/mm3 06/02/20 09:14 Lymphocytes # (Manual) 1.2 K/mm3 (1.2-5.4) 06/02/20 09:14 Abs React Lymphs (Man) 0.0 K/mm3 06/02/20 09:14 Monocytes # (Manual) 1.0 K/mm3 (0.0-0.8) H 06/02/20 09:14 Eosinophils # (Manual) 0.3 K/mm3 (0.0-0.4) 06/02/20 09:14 Basophils # (Manual) 0.0 K/mm3 (0.0-0.1) 06/02/20 09:14 Metamyelocytes # 0.1 K/mm3 06/02/20 09:14 Myelocytes # 0.0 K/mm3 06/02/20 09:14 Promyelocytes # 0.0 K/mm3 06/02/20 09:14 Blast Cells # 0.0 K/mm3 06/02/20 09:14 WBC Morphology Not Reportable 06/02/20 09:14 Hypersegmented Neuts Not Reportable 06/02/20 09:14 Hyposegmented Neuts Not Reportable 06/02/20 09:14 Hypogranular Neuts Not Reportable 06/02/20 09:14 Smudge Cells Not Reportable 06/02/20 09:14 Toxic Granulation Not Reportable 06/02/20 09:14 Toxic Vacuolation Not Reportable 06/02/20 09:14 Dohle Bodies Not Reportable 06/02/20 09:14 Pelger-Huet Anomaly Not Reportable 06/02/20 09:14 Ibeth Rods Not Reportable 06/02/20 09:14 Platelet Estimate Consistent w auto 06/02/20 09:14 Clumped Platelets Not Reportable 06/02/20 09:14 Plt Clumps, EDTA Not Reportable 06/02/20 09:14 Large Platelets Not Reportable 06/02/20 09:14 Giant Platelets Not Reportable 06/02/20 09:14 Platelet Satelliting Not Reportable 06/02/20 09:14 Plt Morphology Comment Not Reportable 06/02/20 09:14 RBC Morphology Not Reportable 06/02/20 09:14 Dimorphic RBCs Not Reportable 06/02/20 09:14 Polychromasia Not Reportable 06/02/20 09:14 Hypochromasia Not Reportable 06/02/20 09:14 Poikilocytosis Not Reportable 06/02/20 09:14 Anisocytosis 1+ 06/02/20 09:14 Microcytosis Not Reportable 06/02/20 09:14 Macrocytosis Not Reportable 06/02/20 09:14 Spherocytes Not Reportable 06/02/20 09:14 Pappenheimer Bodies Not Reportable 06/02/20 09:14 Sickle Cells Not Reportable 06/02/20 09:14 Target Cells Not Reportable 06/02/20 09:14 Tear Drop Cells Not Reportable 06/02/20 09:14 Ovalocytes Not Reportable 06/02/20 09:14 Helmet Cells Not Reportable 06/02/20 09:14 Villegas-Convoy Bodies Not Reportable 06/02/20 09:14 [place] Rings Not Reportable 06/02/20 09:14 Christopher Cells Not Reportable 06/02/20 09:14 Bite Cells Not Reportable 06/02/20 09:14 Crenated Cell Not Reportable 06/02/20 09:14 Elliptocytes Not Reportable 06/02/20 09:14 Acanthocytes (Spur) Not Reportable 06/02/20 09:14 Rouleaux Not Reportable 06/02/20 09:14 Hemoglobin C Crystals Not Reportable 06/02/20 09:14 Schistocytes Not Reportable 06/02/20 09:14 Malaria parasites Not Reportable 06/02/20 09:14 Bacilio Bodies Not Reportable 06/02/20 09:14 Hem Pathologist Commnt No 06/02/20 09:14 PT 17.4 Sec. (12.2-14.9) H 05/28/20 07:44 INR 1.39 (0.87-1.13) H 05/28/20 07:44 Sodium 138 mmol/L (137-145) 06/02/20 09:14 Potassium 3.3 mmol/L (3.6-5.0) L 06/02/20 09:14 Chloride 102.6 mmol/L (98-107) 06/02/20 09:14 Carbon Dioxide 29 mmol/L (22-30) 06/02/20 09:14 Anion Gap 10 mmol/L 06/02/20 09:14 BUN 7 mg/dL (9-20) L 06/02/20 09:14 Creatinine 0.5 mg/dL (0.8-1.3) L 06/02/20 09:14 Estimated GFR > 60 ml/min 06/02/20 09:14 BUN/Creatinine Ratio 14 % 06/02/20 09:14 Glucose 101 mg/dL (75-100) H 06/02/20 09:14 Calcium 8.2 mg/dL (8.4-10.2) L 06/02/20 09:14 Magnesium 1.90 mg/dL (1.7-2.3) 06/02/20 04:20 Total Bilirubin 1.10 mg/dL (0.1-1.2) 05/27/20 02:19 AST 17 units/L (5-40) 10/04/20 02:19 ALT 13 units/L (7-56) 05/27/20 02:19 Alkaline Phosphatase 67 units/L (35-129) 05/27/20 02:19 Total Protein 8.7 g/dL (6.3-8.2) H 05/27/20 02:19 Albumin 4.7 g/dL (3.9-5) 05/27/20 02:19 Albumin/Globulin Ratio 1.2 % 05/27/20 02:19 Lipase 14 units/L (13-60) 05/27/20 02:19 Urine Color Tess (Yellow) 05/27/20 03:15 Urine Turbidity Clear (Clear) 05/27/20 03:15 Urine pH 6.0 (5.0-7.0) 05/27/20 03:15 Ur Specific Jbphh 1.038 (1.003-1.030) H 05/27/20 03:15 Urine Protein 100 mg/dl mg/dL (Negative) 05/27/20 03:15 Urine Glucose (UA) Neg mg/dL (Negative) 05/27/20 03:15 Urine Ketones 80 mg/dL (Negative) 05/27/20 03:15 Urine Blood Neg (Negative) 05/27/20 03:15 Urine Nitrite Neg (Negative) 05/27/20 03:15 Urine Bilirubin Neg (Negative) 05/27/20 03:15 Urine Urobilinogen 2.0 mg/dL (<2.0) 05/27/20 03:15 Ur Leukocyte Esterase Neg (Negative) 05/27/20 03:15 Urine WBC (Auto) 1.0 /HPF (0.0-6.0) 05/27/20 03:15 Urine RBC (Auto) 8.0 /HPF (0.0-6.0) 05/27/20 03:15 U Epithel Cells (Auto) 1.0 /HPF (0-13.0) 05/27/20 03:15 Urine Mucus 3+ /HPF 05/27/20 03:15 Microbiology: Microbiology 05/27/20 11:20 Abdomen Anaerobic Culture - Final Velazquez/IV: Voiding Method Urinal IV Catheter Type [Right INT / Saline Lock Forearm] IV Catheter Type [Left Distal INT / Saline Lock Port Antecubital] Active Medications - Current Medications Current Medications: Generic Name Dose Route Start Last Admin Trade Name Freq PRN Reason Stop Dose Admin Acetaminophen 650 mg 05/27/20 05:32 Tylenol PO Q4H PRN Pain MILD(1-3)/Fever >100.5/MENDEZ Diazepam 10 mg 05/30/20 10:22 Valium IV Q6H PRN Agitation Heparin Sodium (Porcine) 5,000 unit 05/27/20 14:00 06/02/20 13:30 Heparin SUB-Q 5,000 unit Q8HR AMOR Administration Hydromorphone HCl 0.5 mg 06/02/20 12:56 Dilaudid IV Q6H PRN Pain , Severe (7-10) Dextrose/Sodium Chloride 1,000 mls @ 100 mls/hr 05/29/20 15:00 06/02/20 13:29 D5ns IV 100 mls/hr DIRECT AMOR Administration Cefepime HCl 2 gm in 100 mls @ 200 mls/hr 05/29/20 16:00 06/02/20 09:04 Cefepime/Ns 2 Gm/100 Ml IV 06/07/20 22:29 200 mls/hr Q12HR AMOR Administration Protocol Fluconazole 200 mg in 100 mls @ 100 mls/hr 05/29/20 16:00 06/02/20 09:04 Diflucan IV 06/07/20 10:59 100 mls/hr Q24HR AMOR Administration Protocol Metronidazole 500 mg in 100 mls @ 100 mls/hr 05/29/20 16:00 06/02/20 13:30 Flagyl 500 Mg/100 Ml IV 06/08/20 06:59 100 mls/hr Q8HR AMOR Administration Protocol Lorazepam 1 mg 05/29/20 14:49 05/29/20 15:23 Ativan IV 1 mg Q4H PRN Administration Anxiety Morphine Sulfate 2 mg 05/27/20 05:32 05/31/20 05:13 Morphine IV 2 mg Q4H PRN Administration Pain, Moderate (4-6) Ondansetron HCl 4 mg 06/02/20 11:19 06/02/20 11:28 Zofran IV 4 mg Q4H PRN Administration Nausea And Vomiting Oxycodone/Acetaminophen 2 tab 05/27/20 13:14 05/31/20 21:02 Percocet 5/325 PO 2 tab Q4H PRN Administration Pain, Moderate (4-6) Phenol 1 spray 05/27/20 13:14 05/27/20 21:54 Chloraseptic MM 1 spray PRN PRN Administration Sore Throat Sodium Chloride 10 ml 05/27/20 10:00 06/02/20 09:06 Sodium Chloride Flush Syringe 10 Ml IV 10 ml BID AMOR Administration Sodium Chloride 10 ml 05/27/20 05:32 Sodium Chloride Flush Syringe 10 Ml IV PRN PRN LINE FLUSH Nutrition/Malnutrition Assess - Dietary Evaluation Nutrition/Malnutrition Findings: Nutrition Notes Start: 06/01/20 12:18 Freq: Status: Active Protocol: Document 06/01/20 12:18 (Rec: 06/01/20 12:45 MK [id number]) Nutrition Notes Need for Assessment generated from: LOS Initial or Follow up Assessment Other Pertinent Diagnosis HIV, adynamic ileus, ruptured appendix, abd. wound, ascities Current Diet NPO Labs/Tests K 3.2 BUN 7 Cr 0.5 Pertinent Medications Dilaudid Height 5 ft 9 in Weight 61.5 kg Mayo Body Weight (kg) 72.72 BMI 20.0 Intake Prior to Admission Excellent Weight Status Appropriate Subjective/Other Information Screen for LOS. 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 Pt has NGT on LIS with greenish black colored liquid coming out. Pt NPO for 5 days. Per chart, pt NPO until BM and NGT can come out. TPN is recommended if diet is unable to be advanced in two days, commincated with RN. Pt has large surgical wound on abd causing pain. Burn Absent Trauma Absent GI Symptoms Nausea,Vomiting,Last BM,Other Current % PO Negligible Minimum of two criteria No physical signs of malnutrition Energy Intake (severe) < or equal to 50% Estimated Energy Requirement > or equal to 5 days #2 Nutrition Diagnosis Increased nutrient needs ( specify in comment below) Comments: protein Etiology wound healing As Evidenced by Signs and Symptoms surgical wound on abd #1 Nutrition Diagnosis Inadequate oral intake Etiology adynamic ileus As Evidenced by Signs and Symptoms NPO Is patient on ventilator? No Is Patient Ambulatory and/or Out of Bed Yes REE-(Fl[place]-St. Jeor-ambulatory/OOB) [ 2066.494 [id number]] Calculation Used for Recommendations [place]-St Jeor Additional Notes Pro: 77-92g (1.25-1.5 g/kg) Fluid: 1 ml/kcal or per MD Nutrition Intervention Change Diet Order: Diet advancement or TPN when medically feasible Goal #1 Diet advancement Follow-Up By: 05/28/20 Additional Comments FU for BM and diet advancement
[2020-06-02] MEDS: POTASSIUM CHLORIDE 10 MEQ 10 MEQ/100 ML BAG IV SCH ×3 (15:22→18:03)
[2020-06-03] MEDS: MORPHINE 2 MG/1 ML INJ IV PRN ×2 (00:11→20:47)
[2020-06-03] MEDS: HYDROmorphone 1 MG/1 ML INJ IV PRN ×2 (03:25→13:26)
[2020-06-03] MEDS: ONDANSETRON 4 MG/2 ML INJ IV PRN ×3 (03:25→20:50)
[2020-06-03] MEDS: D5W/0.9% NACL 1,000 ML IV SCH ×2 (03:27→18:39)
[2020-06-03] MEDS: metroNIDAZOLE/NS 500 MG/100 ML 500 MG/100 ML BAG IV SCH ×3 (05:37→22:55)
[2020-06-03] MEDS: HEPARIN 5,000 UNIT/1 ML VIAL SUB-Q SCH ×3 (05:39→22:58)
[2020-06-03] MEDS: CEFEPIME/NS 2 GM/100 ML 2 GM/100 ML BAG IV SCH ×2 (09:56→22:14)
[2020-06-03] MEDS: BICTEGRAV/EMTRICIT/TENOFOV ALA (NF) TAB PO SCH (09:56)
[2020-06-03] MEDS: FLUCONAZOLE 200 MG 200 MG/100 ML BAG IV SCH (10:00)
[2020-06-03 10:03] LABS: Basophils % (Auto) 0.3 % (0.0-1.8); Eosinophils # (Auto) 0.3 K/mm3 (0.0-0.4); Eosinophils % (Auto) 3.2 % (0.0-4.3); Hematocrit 33.1 % (35.5-45.6); Hemoglobin 11.3 gm/dl (11.8-15.2); Lymphocytes # (Auto) 1.4 K/mm3 (1.2-5.4); Mean Corpuscular HGB Conc 34 % (32-34); Mean Corpuscular Volume 100 fl (84-94); Monocytes % (Auto) 10.5 % (0.0-7.3); Platelet Count 405 K/mm3 (140-440); Red Blood Count 3.31 M/mm3 (3.65-5.03); Red Cell Distribution Width 12.1 % (13.2-15.2)
[2020-06-03 10:26] LABS: BUN/Creatinine Ratio 10; Blood Urea Nitrogen 6 mg/dL (9-20); Calcium 8.2 mg/dL (8.4-10.2); Hemolysis Index 8
--- NOTE | 2020-06-03 12:47 | Progress Note ---
Assessment and Plan POD 7 s/p open appendectomy, VSS AF still a lot of NG output, labs OK, need K above 4, continue NG for now, consider repeating CT tommorow. Continue present management. no flatus or BM, drains patent.Pt ambulated in lux today with tech. INF DZ on board, I appreciate their assistance. Subjective Date of service: 06/03/20 Patient Reports: Positive: other (complains about NG tube) Objective Vital Signs - 12hr 06/03/20 06/03/20 06/03/20 05:28 06:53 11:36 Temperature 97.9 F 98.1 F 98.2 F Pulse Rate 79 80 84 Respiratory 18 18 19 Rate Blood Pressure 129/66 127/86 Blood Pressure 134/82 [Left] O2 Sat by Pulse 99 99 100 Oximetry - General physical appearance no distress - Eyes PERRL, normal occular movement - ENT normal pinna, normal nares, normal mucosa, no hearing loss, no congestion - Neck no masses, no bruits, trachea midline, no lymphadectomy, no venous distension - Respiratory normal expansion, normal respiratory effort, clear to percussion, clear to aus cultation - Abdomen soft, bowel sounds hypoactive, other (/ no flatus or BM) - Psychiatric oriented to time, oriented to person, oriented to place, speech is normal, memory intact - Labs 06/03/20 09:27 06/03/20 09:27 Diabetes panel 06/03/20 Range/Units 09:27 Sodium 136 L (137-145) mmol/L Potassium 3.1 L (3.6-5.0) mmol/L Chloride 99.4 (98-107) mmol/L Carbon Dioxide 24 (22-30) mmol/L BUN 6 L (9-20) mg/dL Creatinine 0.6 L (0.8-1.3) mg/dL Glucose 99 (75-100) mg/dL Calcium 8.2 L (8.4-10.2) mg/dL Calcium panel 06/03/20 06/03/20 Range/Units 05:17 09:27 Calcium 8.2 L (8.4-10.2) mg/dL Phosphorus 3.00 (2.5-4.5) mg/dL Pituitary panel 06/03/20 Range/Units 09:27 Sodium 136 L (137-145) mmol/L Potassium 3.1 L (3.6-5.0) mmol/L Chloride 99.4 (98-107) mmol/L Carbon Dioxide 24 (22-30) mmol/L BUN 6 L (9-20) mg/dL Creatinine 0.6 L (0.8-1.3) mg/dL Glucose 99 (75-100) mg/dL Calcium 8.2 L (8.4-10.2) mg/dL Adrenal panel 06/03/20 Range/Units 09:27 Sodium 136 L (137-145) mmol/L Potassium 3.1 L (3.6-5.0) mmol/L Chloride 99.4 (98-107) mmol/L Carbon Dioxide 24 (22-30) mmol/L BUN 6 L (9-20) mg/dL Creatinine 0.6 L (0.8-1.3) mg/dL Glucose 99 (75-100) mg/dL Calcium 8.2 L (8.4-10.2) mg/dL
[2020-06-03] MEDS: LORazepam 2 MG/ML VIAL IV PRN ×2 (13:26→22:21)
--- NOTE | 2020-06-03 16:19 | Progress Note ---
Assessment and Plan Assessment and plan: --Persistent hypokalemia; Due to patient's refusal to take 40 mEq IV KCl yesterday We will encourage him to comply, order 40 mEq IV KCl Magnesium levels within normal limits -- Acute appendicitis with abscess; s/p open appendectomy via ex lap and Drainage of abscess. Postop care per surgery Patient placed on IV fluid and empiric IV antibiotics. General surgeon Dr. Andrew Quarles evaluated and patient had cont on IV analgesic medication, IV fluid and IV Zofran as needed. Patient is still n.p.o. --Sepsis, due to Acute appendicitis with large appendicolith cont abx, follow ID recommendation --adynamic ileus; worsening ileus Management per surgery, patient n.p.o. intermittent suction -- Nausea and vomiting ; Secondary to worsening ileus antiemetics, analgesics, IV fluids Supportive care -- HIV: hold meds for now, ID consult -- DVT Px Patient placed on sequential compression device. We will closely monitor the patient and adjust management as needed Plan of care reviewed with the patient and his nurse History Interval history: I have seen and examined the patient at the bedside Patient's chart and medications reviewed Patient did not have flatus or bowel movement NG tube in place Patient refused potassium yesterday per nurse's note Potassium levels remain low Hospitalist Physical - Constitutional Vitals: Temp Pulse Resp BP Pulse Ox 98.1 F 90 20 139/81 100 06/03/20 15:29 06/03/20 15:29 06/03/20 15:29 06/03/20 15:29 06/03/20 15:29 General appearance: Present: mild distress, cachectic, other (Anxious wants the tube out ) - EENT Eyes: Present: PERRL, EOM intact - Neck Neck: Present: supple, normal ROM - Respiratory Respiratory effort: normal Respiratory: bilateral: diminished, rales, negative: rhonchi, wheezing - Cardiovascular Rhythm: regular Heart Sounds: Present: S1 & S2 - Extremities Extremities: no ischemia, No edema - Abdominal General gastrointestinal: soft, tender (No guarding no rigidity), non-distended, hypoactive bowel sounds - Integumentary Integumentary: Present: clear, warm - Psychiatric Psychiatric: appropriate mood/affect, cooperative - Neurologic Neurologic: moves all extremities Results - Labs CBC & Chem 7: 06/03/20 09:27 06/03/20 09:27 Labs: Laboratory Last Values WBC 9.7 K/mm3 (4.5-11.0) 06/03/20 09: RBC 3.31 M/mm3 (3.65-5.03) L 06/03/20 09: Hgb 11.3 gm/dl (11.8-15.2) L 06/03/20 09: Hct 33.1 % (35.5-45.6) L 06/03/20: MCV 100 fl (84-94) H 06/03/20 09: MCH 34 pg (28-32) H 06/03/20 09: MCHC 34 % (32-34) 06/03/20: RDW 12.1 % (13.2-15.2) L 06/03/20 09: Plt Count 405 K/mm3 (140-440) 06/03/20 09: Lymph % (Auto) 15.0 % (13.4-35.0) 06/03/20: [place] % (Auto) 10.5 % (0.0-7.3) H 06/03/20 09: Eos % (Auto) 3.2 % (0.0-4.3) 06/03/20: Baso % (Auto) 0.3 % (0.0-1.8) 06/03/20 09: Lymph # (Auto) 1.4 K/mm3 (1.2-5.4) 06/03/20 09: [place] # (Auto) 1.0 K/mm3 (0.0-0.8) H 06/03/20 09:27 Eos # (Auto) 0.3 K/mm3 (0.0-0.4) 06/03/20 09: Baso # (Auto) 0.0 K/mm3 (0.0-0.1) 06/03/20 09: Add Manual Diff Complete 06/02/20 09:14 Total Counted 100 06/02/20 09:14 Seg Neutrophils % 71.0 % (40.0-70.0) H 06/03/20 09:27 Seg Neuts % (Manual) 71.0 % (40.0-70.0) H 06/02/20 09:14 Band Neutrophils % 1.0 % 06/02/20 09:14 Lymphocytes % (Manual) 13.0 % (13.4-35.0) L 06/02/20 09:14 Reactive Lymphs % (Man) 0 % 06/02/20 09:14 Monocytes % (Manual) 11.0 % (0.0-7.3) H 06/02/20 09:14 Eosinophils % (Manual) 3.0 % (0.0-4.3) 06/02/20 09:14 Basophils % (Manual) 0 % (0.0-1.8) 06/02/20 09:14 Metamyelocytes % 1.0 % 06/02/20 09:14 Myelocytes % 0 % 06/02/20 09:14 Promyelocytes % 0 % 06/02/20 09:14 Blast Cells % 0 % 06/02/20 09:14 Nucleated RBC % Not Reportable 06/02/20 09:14 Seg Neutrophils # 6.9 K/mm3 (1.8-7.7) 06/03/20 09:27 Seg Neutrophils # Man 6.5 K/mm3 (1.8-7.7) 06/02/20 09:14 Band Neutrophils # 0.1 K/mm3 06/02/20 09:14 Lymphocytes # (Manual) 1.2 K/mm3 (1.2-5.4) 06/02/20 09:14 Abs React Lymphs (Man) 0.0 K/mm3 06/02/20 09:14 Monocytes # (Manual) 1.0 K/mm3 (0.0-0.8) H 06/02/20 09:14 Eosinophils # (Manual) 0.3 K/mm3 (0.0-0.4) 06/02/20 09:14 Basophils # (Manual) 0.0 K/mm3 (0.0-0.1) 06/02/20 09:14 Metamyelocytes # 0.1 K/mm3 06/02/20 09:14 Myelocytes # 0.0 K/mm3 06/02/20 09:14 Promyelocytes # 0.0 K/mm3 06/02/20 09:14 Blast Cells # 0.0 K/mm3 06/02/20 09:14 WBC Morphology Not Reportable 06/02/20 09:14 Hypersegmented Neuts Not Reportable 06/02/20 09:14 Hyposegmented Neuts Not Reportable 06/02/20 09:14 Hypogranular Neuts Not Reportable 06/02/20 09:14 Smudge Cells Not Reportable 06/02/20 09:14 Toxic Granulation Not Reportable 06/02/20 09:14 Toxic Vacuolation Not Reportable 06/02/20 09:14 Dohle Bodies Not Reportable 06/02/20 09:14 Pelger-Huet Anomaly Not Reportable 06/02/20 09:14 Ibeth Rods Not Reportable 06/02/20 09:14 Platelet Estimate Consistent w auto 06/02/20 09:14 Clumped Platelets Not Reportable 06/02/20 09:14 Plt Clumps, EDTA Not Reportable 06/02/20 09:14 Large Platelets Not Reportable 06/02/20 09:14 Giant Platelets Not Reportable 06/02/20 09:14 Platelet Satelliting Not Reportable 06/02/20 09:14 Plt Morphology Comment Not Reportable 06/02/20 09:14 RBC Morphology Not Reportable 06/02/20 09:14 Dimorphic RBCs Not Reportable 06/02/20 09:14 Polychromasia Not Reportable 06/02/20 09:14 Hypochromasia Not Reportable 06/02/20 09:14 Poikilocytosis Not Reportable 06/02/20 09:14 Anisocytosis 1+ 06/02/20 09:14 Microcytosis Not Reportable 06/02/20 09:14 Macrocytosis Not Reportable 06/02/20 09:14 Spherocytes Not Reportable 06/02/20 09:14 Pappenheimer Bodies Not Reportable 06/02/20 09:14 Sickle Cells Not Reportable 06/02/20 09:14 Target Cells Not Reportable 06/02/20 09:14 Tear Drop Cells Not Reportable 06/02/20 09:14 Ovalocytes Not Reportable 06/02/20 09:14 Helmet Cells Not Reportable 06/02/20 09:14 Villegas-Felsenthal Bodies Not Reportable 06/02/20 09:14 [place] Rings Not Reportable 06/02/20 09:14 Christopher Cells Not Reportable 06/02/20 09:14 Bite Cells Not Reportable 06/02/20 09:14 Crenated Cell Not Reportable 06/02/20 09:14 Elliptocytes Not Reportable 06/02/20 09:14 Acanthocytes (Spur) Not Reportable 06/02/20 09:14 Rouleaux Not Reportable 06/02/20 09:14 Hemoglobin C Crystals Not Reportable 06/02/20 09:14 Schistocytes Not Reportable 06/02/20 09:14 Malaria parasites Not Reportable 06/02/20 09:14 Bacilio Bodies Not Reportable 06/02/20 09:14 Hem Pathologist Commnt No 06/02/20 09:14 PT 17.4 Sec. (12.2-14.9) H 05/28/20 07:44 INR 1.39 (0.87-1.13) H 05/28/20 07:44 Sodium 136 mmol/L (137-145) L 06/03/20 09:27 Potassium 3.1 mmol/L (3.6-5.0) L 06/03/20 09:27 Chloride 99.4 mmol/L (98-107) 06/03/20 09:27 Carbon Dioxide 24 mmol/L (22-30) 06/03/20 09:27 Anion Gap 16 mmol/L 06/03/20 09:27 BUN 6 mg/dL (9-20) L 06/03/20 09:27 Creatinine 0.6 mg/dL (0.8-1.3) L 06/03/20 09:27 Estimated GFR > 60 ml/min 06/03/20 09:27 BUN/Creatinine Ratio 10 % 06/03/20 09:27 Glucose 99 mg/dL (75-100) 06/03/20 09:27 Calcium 8.2 mg/dL (8.4-10.2) L 06/03/20 09:27 Phosphorus 3.00 mg/dL (2.5-4.5) 06/03/20 05:17 Magnesium 2.00 mg/dL (1.7-2.3) 06/03/20 05:17 Total Bilirubin 1.10 mg/dL (0.1-1.2) 05/27/20 02:19 AST 17 units/L (5-40) 05/27/20 02:19 ALT 13 units/L (7-56) 05/27/20 02:19 Alkaline Phosphatase 67 units/L (35-129) 05/27/20 02:19 Total Protein 8.7 g/dL (6.3-8.2) H 05/27/20 02:19 Albumin 4.7 g/dL (3.9-5) 05/27/20 02:19 Albumin/Globulin Ratio 1.2 % 05/27/20 02:19 Lipase 14 units/L (13-60) 05/27/20 02:19 Urine Color Tess (Yellow) 05/27/20 03:15 Urine Turbidity Clear (Clear) 05/27/20 03:15 Urine pH 6.0 (5.0-7.0) 05/27/20 03:15 Ur Specific [place] 1.038 (1.003-1.030) H 05/27/20 03:15 Urine Protein 100 mg/dl mg/dL (Negative) 05/27/20 03:15 Urine Glucose (UA) Neg mg/dL (Negative) 05/27/20 03:15 Urine Ketones 80 mg/dL (Negative) 05/27/20 03:15 Urine Blood Neg (Negative) 05/27/20 03:15 Urine Nitrite Neg (Negative) 05/27/20 03:15 Urine Bilirubin Neg (Negative) 05/27/20 03:15 Urine Urobilinogen 2.0 mg/dL (<2.0) 05/27/20 03:15 Ur Leukocyte Esterase Neg (Negative) 05/27/20 03:15 Urine WBC (Auto) 1.0 /HPF (0.0-6.0) 05/27/20 03:15 Urine RBC (Auto) 8.0 /HPF (0.0-6.0) 05/27/20 03:15 U Epithel Cells (Auto) 1.0 /HPF (0-13.0) 05/27/20 03:15 Urine Mucus 3+ /HPF 05/27/20 03:15 Velazquez/IV: Voiding Method Urinal IV Catheter Type [Right INT / Saline Lock Forearm] IV Catheter Type [Left Distal INT / Saline Lock Port Antecubital] Active Medications - Current Medications Current Medications: Generic Name Dose Route Start Last Admin Trade Name Freq PRN Reason Stop Dose Admin Acetaminophen 650 mg 05/27/20 05:32 Tylenol PO Q4H PRN Pain MILD(1-3)/Fever >100.5/MENDEZ Diazepam 10 mg 05/30/20 10:22 Valium IV Q6H PRN Agitation Heparin Sodium (Porcine) 5,000 unit 05/27/20 14:00 06/03/20 13:15 Heparin SUB-Q 5,000 unit Q8HR AMOR Administration Hydromorphone HCl 0.5 mg 06/02/20 12:56 06/03/20 13:26 Dilaudid IV 0.5 mg Q6H PRN Administration Pain , Severe (7-10) Dextrose/Sodium Chloride 1,000 mls @ 100 mls/hr 05/29/20 15:00 06/03/20 03:27 D5ns IV 100 mls/hr DIRECT AMOR Administration Cefepime HCl 2 gm in 100 mls @ 200 mls/hr 05/29/20 16:00 06/03/20 09:56 Cefepime/Ns 2 Gm/100 Ml IV 06/07/20 22:29 200 mls/hr Q12HR AMOR Administration Protocol Fluconazole 200 mg in 100 mls @ 100 mls/hr 05/29/20 16:00 06/03/20 10:00 Diflucan IV 06/07/20 10:59 100 mls/hr Q24HR AMOR Administration Protocol Metronidazole 500 mg in 100 mls @ 100 mls/hr 05/29/20 16:00 06/03/20 13:16 Flagyl 500 Mg/100 Ml IV 06/08/20 06:59 100 mls/hr Q8HR AMOR Administration Protocol Potassium Chloride 10 meq in 100 mls @ 100 mls/hr 06/03/20 17:00 Kcl 10meq/100ml IV 06/03/20 20:59 Q1H AMOR Lorazepam 1 mg 05/29/20 14:49 06/03/20 13:26 Ativan IV 1 mg Q4H PRN Administration Anxiety Morphine Sulfate 2 mg 05/27/20 05:32 06/03/20 00:11 Morphine IV 2 mg Q4H PRN Administration Pain, Moderate (4-6) Ondansetron HCl 4 mg 06/02/20 11:19 06/03/20 13:15 Zofran IV 4 mg Q4H PRN Administration Nausea And Vomiting Oxycodone/Acetaminophen 2 tab 05/27/20 13:14 05/31/20 21:02 Percocet 5/325 PO 2 tab Q4H PRN Administration Pain, Moderate (4-6) Phenol 1 spray 05/27/20 13:14 05/27/20 21:54 Chloraseptic MM 1 spray PRN PRN Administration Sore Throat Sodium Chloride 10 ml 05/27/20 10:00 06/03/20 09:56 Sodium Chloride Flush Syringe 10 Ml IV 10 ml BID AMOR Administration Sodium Chloride 10 ml 05/27/20 05:32 Sodium Chloride Flush Syringe 10 Ml IV PRN PRN LINE FLUSH Nutrition/Malnutrition Assess - Dietary Evaluation Nutrition/Malnutrition Findings: Nutrition Notes Start: 06/01/20 12:18 Freq: Status: Active Protocol: Document 06/01/20 12:18 (Rec: 06/01/20 12:45 [id number]) Nutrition Notes Need for Assessment generated from: LOS Initial or Follow up Assessment Other Pertinent Diagnosis HIV, adynamic ileus, ruptured appendix, abd. wound, ascities Current Diet NPO Labs/Tests K 3.2 BUN 7 Cr 0.5 Pertinent Medications Dilaudid Height 5 ft 9 in Weight 61.5 kg [place] Body Weight (kg) 72.72 BMI 20.0 Intake Prior to Admission Excellent Weight Status Appropriate Subjective/Other Information Screen for LOS. Pt reports no weight loss or appetite changes PIT STEW[place]. Pt reports feeling hungry. Pt has NGT on LIS with greenish black colored liquid coming out. Pt NPO for 5 days. Per chart, pt NPO until BM and NGT can come out. TPN is recommended if diet is unable to be advanced in two days, commincated with RN. Pt has large surgical wound on abd causing pain. Burn Absent Trauma Absent GI Symptoms Nausea,Vomiting,Last BM,Other Current % PO Negligible Minimum of two criteria No physical signs of malnutrition Energy Intake (severe) < or equal to 50% Estimated Energy Requirement > or equal to 5 days #2 Nutrition Diagnosis Increased nutrient needs ( specify in comment below) Comments: protein Etiology wound healing As Evidenced by Signs and Symptoms surgical wound on abd #1 Nutrition Diagnosis Inadequate oral intake Etiology adynamic ileus As Evidenced by Signs and Symptoms NPO Is patient on ventilator? No Is Patient Ambulatory and/or Out of Bed Yes REE-([facility]. or-ambulatory/OOB) [ 2066.494 [id number]] Calculation Used for Recommendations [facility] Additional Notes Pro: 77-92g (1.25-1.5 g/kg) Fluid: 1 ml/kcal or per MD Nutrition Intervention Change Diet Order: Diet advancement or TPN when medically feasible Goal #1 Diet advancement Follow-Up By: 05/28/20 Additional Comments FU for BM and diet advancement
[2020-06-03] MEDS: POTASSIUM CHLORIDE 10 MEQ 10 MEQ/100 ML BAG IV SCH ×2 (18:53→20:50)
[2020-06-04] MEDS: POTASSIUM CHLORIDE 10 MEQ 10 MEQ/100 ML BAG IV SCH ×2 (00:12→02:30)
[2020-06-04] MEDS: MORPHINE 2 MG/1 ML INJ IV PRN ×3 (01:01→11:02)
[2020-06-04] MEDS: ONDANSETRON 4 MG/2 ML INJ IV PRN ×3 (01:01→11:02)
[2020-06-04] MEDS: metroNIDAZOLE/NS 500 MG/100 ML 500 MG/100 ML BAG IV SCH ×3 (05:21→22:00)
[2020-06-04] MEDS: HEPARIN 5,000 UNIT/1 ML VIAL SUB-Q SCH ×3 (05:24→22:00)
--- NOTE | 2020-06-04 10:10 | Cat Scan Report ---
CT abdomen pelvis w con INDICATION: Abdominal pain. Prior appendicitis. COMPARISON: 05/27/2020 CT abdomen TECHNIQUE: Abdominal and pelvic CT exam performed. All CT scans at this location are performed using CT dose reduction for ALARA by means of automated exposure control. FINDINGS: CT ABDOMEN and PELVIS: Lung Bases: Small bilateral pleural effusions. Liver: Hepatic segment 7 lesion measuring 4.3 cm there is shortening peripheral nodular discontinuous enhancement consistent with a hemangioma. Biliary: No significant abnormality. Spleen: No significant abnormality. Pancreas: No significant abnormality. Adrenals: No significant abnormality. Kidneys: No significant abnormality. Lymphatics: No lymphadenopathy. Vasculature: No significant abnormality. Bowel/Peritoneum: Postoperative changes from appendectomy. Surgical drain is seen terminating in the left lower quadrant. Small quantity of free fluid is an anticipated finding. No organized fluid colle ction. Enteric tube terminates in stomach. No dilated bowel loops. The previously seen ileus has reso lved. There is packing seen within the ventral abdominal wall incision. Pelvis: No significant abnormality. Osseous Structures: No aggressive osseous lesion. Additional Findings: None IMPRESSION: 1. Anticipated postoperative changes from appendectomy. No abscess. No bowel obstruction or ileus. Signer Name: Jony Shields MD Signed: 06/04/2020 10:05 AM Workstation Name: [id number]
[2020-06-04] MEDS: CEFEPIME/NS 2 GM/100 ML 2 GM/100 ML BAG IV SCH ×2 (11:11→21:59)
[2020-06-04] MEDS: BICTEGRAV/EMTRICIT/TENOFOV ALA (NF) TAB PO SCH (11:19)
[2020-06-04] MEDS: FLUCONAZOLE 200 MG 200 MG/100 ML BAG IV SCH (12:30)
--- NOTE | 2020-06-04 13:56 | Progress Note ---
Assessment and Plan Cultures: 05/27/2020 peritoneal culture from OR: Pseudomonas aeruginosa, E. coli, beta- hemolytic Streptococcus group C A/P: 24-year-old male with HIV, admitted to the hospital on 05/27/2020 with complaints of abdominal pain: #Acute appendicitis with perforation and peritonitis with gross purulence: Status post open appendectomy and washout. #HIV disease: Diagnosed in 2014, has been in excellent control with undetectable viral load for the last 4 years, on p.o. Biktarvy. Follows up at an HIV clinic in [place]. Recs: continue IV Cefepime, Flagyl and fluconazole, D6, plan to switch to PO abx to complete course (total 10 days given extent of infection noted in OR) If discharging on oral would send home with levofloxacin 750 mg every 24 hours, metronidazole, fluconazole 200 mg every 24 hours. Continue p.o. Biktarvy (use patient's own supply) Lucia Orr MD [facility] M: [phone] O: [phone] F: [phone] Subjective Date of service: 06/04/20 Interval history: Afebrile, normal white count. No acute change. [place] review: CT abdomen pelvis: No evident abscess or bowel obstruction. Objective - Exam Narrative Exam: Physical Exam: Constitutional: Alert, cooperative. No acute distress Head, Ears, Nose: Normocephalic, atraumatic. Eyes: Conjunctivae/corneas clear. No icterus. No ptosis. Neck: Supple, no meningeal signs Cardiovascular: S1, S2 normal. Respiratory: Good air entry, clear to auscultation bilaterally GI: Midline incision with dressing, drain with not much output, bowel sounds + Musculoskeletal: No pedal edema, no cyanosis. Skin: No rash or abscess Hem/Lymphatic: No palpable cervical or supraclavicular nodes. No lymphangitis Psych: Mood ok. Affect normal Neurological: Awake, alert, oriented. No gross abnormality - Constitutional Vitals: Vital Signs Temp Pulse Resp BP Pulse Ox 98.7 F 94 H 18 126/76 99 06/04/20 11:54 06/04/20 11:54 06/04/20 11:54 06/04/20 11:54 06/04/20 11:54 Temperature -Last 24 Hours Temperature 98.7 F Temperature 98.4 F Temperature 98.6 F Temperature 98.9 F Temperature 98.1 F - Labs CBC & Chem 7: 06/03/20 09:27 06/04/20 08:22 Labs: Abnormal lab results 06/04/20 Range/Units 08:22 Potassium 3.3 L (3.6-5.0) mmol/L
--- NOTE | 2020-06-04 14:19 | Progress Note ---
Assessment and Plan POD#9 Remove NGT/clears Adv to reg at lunch tomorrow. May get d/c'd tomorrow night/Weds if mariano adv of diet/etc Hypokalemia- mild; replace peritonitis-- cont abx/drain; will remove drain on day of discharge Subjective Date of service: 06/04/20 Patient Reports: Positive: no new complaints, feels better, flatus (pain dec; ambulating more; CT without evid complication today; +flatus/BM), bowel movement Objective Vital Signs - 12hr 06/04/20 06/04/20 07:31 11:54 Temperature 98.4 F 98.7 F Pulse Rate 90 94 H Respiratory 18 18 Rate Blood Pressure 131/76 126/76 O2 Sat by Pulse 97 99 Oximetry pt smiling; looks best he has since admission - Labs 06/03/20 09:27 06/04/20 08:22 Diabetes panel 06/04/20 Range/Units 08:22 Potassium 3.3 L (3.6-5.0) mmol/L Calcium panel 06/04/20 Range/Units 08:22 Phosphorus 3.30 (2.5-4.5) mg/dL Pituitary panel 06/04/20 Range/Units 08:22 Potassium 3.3 L (3.6-5.0) mmol/L Adrenal panel 06/04/20 Range/Units 08:22 Potassium 3.3 L (3.6-5.0) mmol/L
[2020-06-04] MEDS ORDERED: POTASSIUM CHLORIDE ER 10 MEQ TAB PO NR (16:13)
--- NOTE | 2020-06-04 19:27 | Progress Note ---
Assessment and Plan Assessment and plan: --Persistent hypokalemia; potassium 3.3 Replenished with oral KCl Monitor levels -- Acute appendicitis with abscess; NG tube DC'd s/p open appendectomy via ex lap and Drainage of abscess. Postop care per surgery, Continue IV antibiotics Clear liquids, advance diet as tolerated --Sepsis, due to Acute appendicitis with large appendicolith cont cefepime for total 10 days per ID recommendations --adynamic ileus; resolved Patient on clear liquids, advance as tolerated -- Nausea and vomiting ; improved antiemetics, analgesics, IV fluids Supportive care -- HIV disease/undetectable viral load ID following, patient will follow with his private ID/health department upon discharge -- DVT Px Patient placed on sequential compression device. We will closely monitor the patient and adjust management as needed Plan of care reviewed with the patient and his nurse Closely monitor the patient and adjust the management as needed Possible discharge in 1 to 2 days if stable and cleared by surgery History Interval history: I have seen and examined the patient at the bedside Patient's chart and medications reviewed Patient's NG tube is out, tolerating clear liquids Had flatus and bowel movement Patient is happy no new complaints Vital signs reviewed Hospitalist Physical - Constitutional Vitals: Temp Pulse Resp BP Pulse Ox 99.4 F 98 H 18 121/80 99 06/04/20 16:06 06/04/20 16:06 06/04/20 16:06 06/04/20 16:06 06/04/20 16:06 General appearance: Present: no acute distress, well-nourished - EENT Eyes: Present: PERRL, EOM intact - Neck Neck: Present: supple, normal ROM - Respiratory Respiratory effort: normal Respiratory: bilateral: diminished, negative: rales, rhonchi, wheezing - Cardiovascular Rhythm: regular Heart Sounds: Present: S1 & S2 - Extremities Extremities: no ischemia, No edema - Abdominal General gastrointestinal: soft, non-tender, non-distended, normal bowel sounds - Integumentary Integumentary: Present: clear, warm - Psychiatric Psychiatric: appropriate mood/affect, cooperative - Neurologic Neurologic: moves all extremities Results - Labs CBC & Chem 7: 06/03/20 09:27 06/04/20 08:22 Labs: Laboratory Last Values WBC 9.7 K/mm3 (4.5-11.0) 06/03/20 09:27 RBC 3.31 M/mm3 (3.65-5.03) L 06/03/20 09:27 Hgb 11.3 gm/dl (11.8-15.2) L 06/03/20 09: Hct 33.1 % (35.5-45.6) L 06/03/20 09:27 MCV 100 fl (84-94) H 06/03/20 09: MCH 34 pg (28-32) H 06/03/20 09: MCHC 34 % (32-34) 06/03/20 09: RDW 12.1 % (13.2-15.2) L 06/03/20 09: Plt Count 405 K/mm3 (140-440) 06/03/20 09:27 Lymph % (Auto) 15.0 % (13.4-35.0) 06/03/20 09:27 [place] % (Auto) 10.5 % (0.0-7.3) H 06/03/20 09:27 Eos % (Auto) 3.2 % (0.0-4.3) 06/03/20 09: Baso % (Auto) 0.3 % (0.0-1.8) 06/03/20 09: Lymph # (Auto) 1.4 K/mm3 (1.2-5.4) 06/03/20 09:27 [place] # (Auto) 1.0 K/mm3 (0.0-0.8) H 06/03/20 09:27 Eos # (Auto) 0.3 K/mm3 (0.0-0.4) 06/03/20 09: Baso # (Auto) 0.0 K/mm3 (0.0-0.1) 06/03/20 09:27 Add Manual Diff Complete 06/02/20 09:14 Total Counted 100 06/02/20 09:14 Seg Neutrophils % 71.0 % (40.0-70.0) H 06/03/20 09:27 Seg Neuts % (Manual) 71.0 % (40.0-70.0) H 06/02/20 09:14 Band Neutrophils % 1.0 % 06/02/20 09:14 Lymphocytes % (Manual) 13.0 % (13.4-35.0) L 06/02/20 09:14 Reactive Lymphs % (Man) 0 % 06/02/20 09:14 Monocytes % (Manual) 11.0 % (0.0-7.3) H 06/02/20 09:14 Eosinophils % (Manual) 3.0 % (0.0-4.3) 06/02/20 09:14 Basophils % (Manual) 0 % (0.0-1.8) 06/02/20 09:14 Metamyelocytes % 1.0 % 06/02/20 09:14 Myelocytes % 0 % 06/02/20 09:14 Promyelocytes % 0 % 06/02/20 09:14 Blast Cells % 0 % 06/02/20 09:14 Nucleated RBC % Not Reportable 06/02/20 09:14 Seg Neutrophils # 6.9 K/mm3 (1.8-7.7) 06/03/20 09:27 Seg Neutrophils # Man 6.5 K/mm3 (1.8-7.7) 06/02/20 09:14 Band Neutrophils # 0.1 K/mm3 06/02/20 09:14 Lymphocytes # (Manual) 1.2 K/mm3 (1.2-5.4) 06/02/20 09:14 Abs React Lymphs (Man) 0.0 K/mm3 06/02/20 09:14 Monocytes # (Manual) 1.0 K/mm3 (0.0-0.8) H 06/02/20 09:14 Eosinophils # (Manual) 0.3 K/mm3 (0.0-0.4) 06/02/20 09:14 Basophils # (Manual) 0.0 K/mm3 (0.0-0.1) 06/02/20 09:14 Metamyelocytes # 0.1 K/mm3 06/02/20 09:14 Myelocytes # 0.0 K/mm3 06/02/20 09:14 Promyelocytes # 0.0 K/mm3 06/02/20 09:14 Blast Cells # 0.0 K/mm3 06/02/20 09:14 WBC Morphology Not Reportable 06/02/20 09:14 Hypersegmented Neuts Not Reportable 06/02/20 09:14 Hyposegmented Neuts Not Reportable 06/02/20 09:14 Hypogranular Neuts Not Reportable 06/02/20 09:14 Smudge Cells Not Reportable 06/02/20 09:14 Toxic Granulation Not Reportable 06/02/20 09:14 Toxic Vacuolation Not Reportable 06/02/20 09:14 Dohle Bodies Not Reportable 06/02/20 09:14 Pelger-Huet Anomaly Not Reportable 06/02/20 09:14 Ibeth Rods Not Reportable 06/02/20 09:14 Platelet Estimate Consistent w auto 06/02/20 09:14 Clumped Platelets Not Reportable 06/02/20 09:14 Plt Clumps, EDTA Not Reportable 06/02/20 09:14 Large Platelets Not Reportable 06/02/20 09:14 Giant Platelets Not Reportable 06/02/20 09:14 Platelet Satelliting Not Reportable 06/02/20 09:14 Plt Morphology Comment Not Reportable 06/02/20 09:14 RBC Morphology Not Reportable 06/02/20 09:14 Dimorphic RBCs Not Reportable 06/02/20 09:14 Polychromasia Not Reportable 06/02/20 09:14 Hypochromasia Not Reportable 06/02/20 09:14 Poikilocytosis Not Reportable 06/02/20 09:14 Anisocytosis 1+ 06/02/20 09:14 Microcytosis Not Reportable 06/02/20 09:14 Macrocytosis Not Reportable 06/02/20 09:14 Spherocytes Not Reportable 06/02/20 09:14 Pappenheimer Bodies Not Reportable 06/02/20 09:14 Sickle Cells Not Reportable 06/02/20 09:14 Target Cells Not Reportable 06/02/20 09:14 Tear Drop Cells Not Reportable 06/02/20 09:14 Ovalocytes Not Reportable 06/02/20 09:14 Helmet Cells Not Reportable 06/02/20 09:14 Villegas-Maricao Bodies Not Reportable 06/02/20 09:14 [place] Rings Not Reportable 06/02/20 09:14 Christopher Cells Not Reportable 06/02/20 09:14 Bite Cells Not Reportable 06/02/20 09:14 Crenated Cell Not Reportable 06/02/20 09:14 Elliptocytes Not Reportable 06/02/20 09:14 Acanthocytes (Spur) Not Reportable 06/02/20 09:14 Rouleaux Not Reportable 06/02/20 09:14 Hemoglobin C Crystals Not Reportable 06/02/20 09:14 Schistocytes Not Reportable 06/02/20 09:14 Malaria parasites Not Reportable 06/02/20 09:14 Bacilio Bodies Not Reportable 06/02/20 09:14 Hem Pathologist Commnt No 06/02/20 09:14 PT 17.4 Sec. (12.2-14.9) H 05/28/20 07:44 INR 1.39 (0.87-1.13) H 05/28/20 07:44 Sodium 136 mmol/L (137-145) L 06/03/20 09:27 Potassium 3.3 mmol/L (3.6-5.0) L 06/04/20 08:22 Chloride 99.4 mmol/L (98-107) 06/03/20 09:27 Carbon Dioxide 24 mmol/L (22-30) 06/03/20 09:27 Anion Gap 16 mmol/L 06/03/20 09:27 BUN 6 mg/dL (9-20) L 06/03/20 09:27 Creatinine 0.6 mg/dL (0.8-1.3) L 06/03/20 09:27 Estimated GFR > 60 ml/min 06/03/20 09:27 BUN/Creatinine Ratio 10 % 06/03/20 09:27 Glucose 99 mg/dL (75-100) 06/03/20 09:27 Calcium 8.2 mg/dL (8.4-10.2) L 06/03/20 09:27 Phosphorus 3.30 mg/dL (2.5-4.5) 06/04/20 08:22 Magnesium 1.90 mg/dL (1.7-2.3) 06/04/20 08:22 Total Bilirubin 1.10 mg/dL (0.1-1.2) 05/27/20 02:19 AST 17 units/L (5-40) 05/27/20 02:19 ALT 13 units/L (7-56) 05/27/20 02:19 Alkaline Phosphatase 67 units/L (35-129) 05/27/20 02:19 Total Protein 8.7 g/dL (6.3-8.2) H 05/27/20 02:19 Albumin 4.7 g/dL (3.9-5) 05/27/20 02:19 Albumin/Globulin Ratio 1.2 % 05/27/20 02:19 Lipase 14 units/L (13-60) 05/27/20 02:19 Urine Color Tess (Yellow) 05/27/20 03:15 Urine Turbidity Clear (Clear) 05/27/20 03:15 Urine pH 6.0 (5.0-7.0) 05/27/20 03:15 Ur Specific [place] 1.038 (1.003-1.030) H 05/27/20 03:15 Urine Protein 100 mg/dl mg/dL (Negative) 05/27/20 03:15 Urine Glucose (UA) Neg mg/dL (Negative) 05/27/20 03:15 Urine Ketones 80 mg/dL (Negative) 05/27/20 03:15 Urine Blood Neg (Negative) 05/27/20 03:15 Urine Nitrite Neg (Negative) 05/27/20 03:15 Urine Bilirubin Neg (Negative) 05/27/20 03:15 Urine Urobilinogen 2.0 mg/dL (<2.0) 05/27/20 03:15 Ur Leukocyte Esterase Neg (Negative) 05/27/20 03:15 Urine WBC (Auto) 1.0 /HPF (0.0-6.0) 05/27/20 03:15 Urine RBC (Auto) 8.0 /HPF (0.0-6.0) 05/27/20 03:15 U Epithel Cells (Auto) 1.0 /HPF (0-13.0) 05/27/20 03:15 Urine Mucus 3+ /HPF 05/27/20 03:15 Velazquez/IV: Voiding Method Urinal IV Catheter Type [Right INT / Saline Lock Forearm] IV Catheter Type [Left Distal INT / Saline Lock Port Antecubital] Active Medications - Current Medications Current Medications: Generic Name Dose Route Start Last Admin Trade Name Freq PRN Reason Stop Dose Admin Acetaminophen 650 mg 05/27/20 05:32 Tylenol PO Q4H PRN Pain MILD(1-3)/Fever >100.5/MENDEZ Diazepam 10 mg 05/30/20 10:22 Valium IV Q6H PRN Agitation Heparin Sodium (Porcine) 5,000 unit 05/27/20 14:00 06/04/20 15:02 Heparin SUB-Q 5,000 unit Q8HR AMOR Administration Hydromorphone HCl 0.5 mg 06/02/20 12:56 06/03/20 13:26 Dilaudid IV 0.5 mg Q6H PRN Administration Pain , Severe (7-10) Dextrose/Sodium Chloride 1,000 mls @ 100 mls/hr 05/29/20 15:00 06/03/20 18:39 D5ns IV 100 mls/hr DIRECT AMOR Administration Cefepime HCl 2 gm in 100 mls @ 200 mls/hr 05/29/20 16:00 06/04/20 11:11 Cefepime/Ns 2 Gm/100 Ml IV 06/07/20 22:29 200 mls/hr Q12HR AMOR Administration Protocol Fluconazole 200 mg in 100 mls @ 100 mls/hr 05/29/20 16:00 06/04/20 12:30 Diflucan IV 06/07/20 10:59 100 mls/hr Q24HR AMOR Administration Protocol Metronidazole 500 mg in 100 mls @ 100 mls/hr 05/29/20 16:00 06/04/20 15:01 Flagyl 500 Mg/100 Ml IV 06/08/20 06:59 100 mls/hr Q8HR AMOR Administration Protocol Lorazepam 1 mg 05/29/20 14:49 06/03/20 22:21 Ativan IV 1 mg Q4H PRN Administration Anxiety Morphine Sulfate 2 mg 05/27/20 05:32 06/04/20 11:02 Morphine IV 2 mg Q4H PRN Administration Pain, Moderate (4-6) Ondansetron HCl 4 mg 06/02/20 11:19 06/04/20 11:02 Zofran IV 4 mg Q4H PRN Administration Nausea And Vomiting Oxycodone/Acetaminophen 2 tab 05/27/20 13:14 05/31/20 21:02 Percocet 5/325 PO 2 tab Q4H PRN Administration Pain, Moderate (4-6) Phenol 1 spray 05/27/20 13:14 05/27/20 21:54 Chloraseptic MM 1 spray PRN PRN Administration Sore Throat Sodium Chloride 10 ml 05/27/20 10:00 06/04/20 11:07 Sodium Chloride Flush Syringe 10 Ml IV 10 ml BID AMOR Administration Sodium Chloride 10 ml 05/27/20 05:32 Sodium Chloride Flush Syringe 10 Ml IV PRN PRN LINE FLUSH Nutrition/Malnutrition Assess - Dietary Evaluation Nutrition/Malnutrition Findings: Nutrition Notes Start: 06/01/20 12:18 Freq: Status: Active Protocol: Document 06/04/20 11:07 LM (Rec: 06/04/20 11:11 LM [id number]) Nutrition Notes Initial or Follow up Brief Note Labs/Tests K 3.1 BUN 6 Cr 0.6 Na 136 Pertinent Medications Zofran Height 5 ft 9 in Weight 61.5 kg [place] Body Weight (kg) 72.72 BMI 20.0 Weight Status Appropriate Subjective/Other Information Pt remains NPO. Pt still with no BM. Nutrition Intervention Follow-Up By: 06/06/20 Additional Comments F/U for BM, diet advancement, need for nutrition support
[2020-06-04] MEDS: D5W/0.9% NACL 1,000 ML IV SCH (21:59)
[2020-06-05] MEDS: ONDANSETRON 4 MG/2 ML INJ IV PRN ×2 (00:40→20:16)
[2020-06-05] MEDS: LORazepam 2 MG/ML VIAL IV PRN (00:40)
[2020-06-05] MEDS: HEPARIN 5,000 UNIT/1 ML VIAL SUB-Q SCH ×3 (06:43→21:21)
[2020-06-05] MEDS: metroNIDAZOLE/NS 500 MG/100 ML 500 MG/100 ML BAG IV SCH ×3 (06:43→21:51)
--- NOTE | 2020-06-05 11:00 | Progress Note ---
Assessment and Plan Cultures: 05/27/2020 peritoneal culture from OR: Pseudomonas aeruginosa, E. coli, beta- hemolytic Streptococcus group C A/P: 24-year-old male with HIV, admitted to the hospital on 05/27/2020 with complaints of abdominal pain: #Acute appendicitis with perforation and peritonitis with gross purulence: Status post open appendectomy and washout. #HIV disease: Diagnosed in 2014, has been in excellent control with undetectable viral load for the last 4 years, on p.o. Biktarvy. Follows up at an HIV clinic in [place]. Recs: continue IV Cefepime, Flagyl and fluconazole, D7, plan to switch to PO abx to complete course (total 10 days given extent of infection noted in OR) If discharging on oral would send home with levofloxacin 750 mg every 24 hours, metronidazole, fluconazole 200 mg every 24 hours. Noted plan for drain removal on day of discharge Continue p.o. Biktarvy (use patient's own supply) Lucia Orr MD [facility] M: [phone] O: [phone] F: [phone] Subjective Date of service: 06/05/20 Interval history: Afebrile normal white count Objective - Exam Narrative Exam: Physical Exam: Constitutional: Alert, cooperative. No acute distress Head, Ears, Nose: Normocephalic, atraumatic. Eyes: Conjunctivae/corneas clear. No icterus. Neck: Supple, no meningeal signs Cardiovascular: S1, S2 normal. Respiratory: Good air entry, clear to auscultation bilaterally GI: Midline incision with dressing, drain with not much output, bowel sounds + Musculoskeletal: No pedal edema, no cyanosis. Skin: No rash or abscess Hem/Lymphatic: No palpable cervical or supraclavicular nodes. No lymphangitis Psych: Mood ok. Affect normal Neurological: Awake, alert, oriented. No gross abnormality - Constitutional Vitals: Vital Signs Temp Pulse Resp BP Pulse Ox 98.7 F 85 18 114/62 96 06/05/20 07:20 06/05/20 07:20 06/05/20 07:20 06/05/20 07:20 06/05/20 08:34 Temperature -Last 24 Hours Temperature 98.7 F Temperature 98.6 F Temperature 99.1 F Temperature 99.0 F Temperature 99.4 F Temperature 98.7 F - Labs CBC & Chem 7: 06/03/20 09:27 06/04/20 08:22
[2020-06-05] MEDS: CEFEPIME/NS 2 GM/100 ML 2 GM/100 ML BAG IV SCH ×2 (11:05→21:20)
[2020-06-05] MEDS: FLUCONAZOLE 200 MG 200 MG/100 ML BAG IV SCH (12:28)
[2020-06-05] MEDS: BICTEGRAV/EMTRICIT/TENOFOV ALA (NF) TAB PO SCH (12:29)
[2020-06-05] MEDS ORDERED: HYDROmorphone 1 MG/1 ML INJ ONE (16:11)
[2020-06-05] MEDS ORDERED: propofoL 200 MG/20 ML VIAL IV ONE (16:11)
[2020-06-05] MEDS ORDERED: LIDOCAINE MPF (2%) 20 MG/1 ML VIAL 5 ML ONE (16:37)
[2020-06-05] MEDS ORDERED: fentaNYL 100 MCG/2 ML INJ ONE (16:38)
[2020-06-05] MEDS ORDERED: SODIUM CHLORIDE 0.9% 1000 ML 1,000 ML ONE (16:43)
[2020-06-05] MEDS ORDERED: SODIUM CHLORIDE 0.9% IRRIG SOLN 2000 ML IR ONE (16:45)
[2020-06-05] MEDS ORDERED: ONDANSETRON 4 MG/2 ML INJ ONE (16:56)
--- NOTE | 2020-06-05 16:59 | Post Operative Note ---
Pre-op diagnosis: open abd wound Post-op diagnosis: same Procedure: DPC abd wound Anesthesia: GETA Surgeon: MICHELINE WREN Estimated blood loss: none Pathology: none Condition: stable Disposition: PACU
[2020-06-05] MEDS ORDERED: HYDROmorphone 1 MG/1 ML INJ IV PRN (17:17)
[2020-06-05] MEDS ORDERED: ONDANSETRON 4 MG/2 ML INJ IV PRN (17:17)
--- NOTE | 2020-06-05 17:17 | Anesthesia Consultation ---
Anesthesia Consult and Med Hx Date of service: 06/05/20 - Airway Anesthetic Teeth Evaluation: Good ROM Head & Neck: Adequate Mental/Hyoid Distance: Adequate Mallampati Class: Class I Intubation Access Assessment: Good (previous easy intubation) - Pulmonary Exam CTA: Yes - Cardiac Exam Cardiac Exam: RRR - Pre-Operative Health Status ASA Pre-Surgery Classification: ASA2 Proposed Anesthetic Plan: General - Pulmonary Hx Smoking: Yes (THC) Hx Respiratory Symptoms: No - Cardiovascular System Hx Hypertension: No Hx Heart Attack/AMI: No Hx Cardia Arrhythmia: No - Central Nervous System CVA: No Hx Psychiatric Problems: Yes (anxiety and depression) - Endocrine Hx Renal Disease: No Hx Liver Disease: No Hx Insulin Dependent Diabetes: No Hx Non-Insulin Dependent Diabetes: No Hx Thyroid Disease: No - Other Systems Hx Substance Use: Yes (THC) Hx Obesity: No - Additional Comments Anesthesia Medical History Comments: HIV+. No hx anesthetic complications. s/p ex-lap for ruptured appendix on 05/27 now scheduled for abdominal wound closure.
--- NOTE | 2020-06-05 17:17 | Anesthesia Day of Surgery ---
Anesthesia Day of Surgery - Day of Surgery Patient Examined: Yes Patient H&P Reviewed: Yes Patient is NPO: Yes
--- NOTE | 2020-06-05 17:47 | Progress Note ---
Assessment and Plan Assessment and plan: --DPC/delayed primary closure of the abdominal wound; 06/05/2020 Continue postop care, surgery following -- Acute appendicitis with abscess; NG tube DC'd s/p open appendectomy via ex lap and Drainage of abscess 05/27/2020 Postop care per surgery, Continue IV antibiotics for total 10 days Clear liquids, advance diet as tolerated adynamic ileus; resolved s/p DCP today 06/05/2020 --Persistent hypokalemia; potassium 3.3 Replenished with oral KCl Monitor levels --Sepsis, due to Acute appendicitis with large appendicolith cont cefepime, Flagyl, Diflucan for total 10 days per ID -- Nausea and vomiting ; resolved -- HIV disease/undetectable viral load ID following, patient will follow with his private ID/health department upon discharge -- DVT prophylaxis ; SCD, defer pharmacologic anticoagulation to surgery We will closely monitor the patient and adjust management as needed Plan of care reviewed with the patient and his nurse Consults and recommendations noted and appreciated. History Interval history: I have seen and examined the patient at the bedside Patient's chart and medications reviewed Patient underwent delayed primary closure of the abdominal wound Vital signs noted Hospitalist Physical - Constitutional Vitals: Temp Pulse Resp BP Pulse Ox 100.4 F H 98 H 14 129/78 97 06/05/20 17:09 06/05/20 17:24 06/05/20 17:24 06/05/20 17:24 06/05/20 17:24 General appearance: Present: no acute distress, well-nourished - EENT Eyes: Present: PERRL, EOM intact - Neck Neck: Present: supple, normal ROM - Respiratory Respiratory effort: normal Respiratory: bilateral: diminished, negative: rales, rhonchi, wheezing - Cardiovascular Rhythm: regular Heart Sounds: Present: S1 & S2 - Extremities Extremities: no ischemia, No edema - Abdominal General gastrointestinal: soft, tender, other (Surgical dressing) - Integumentary Integumentary: Present: clear, warm - Psychiatric Psychiatric: appropriate mood/affect, cooperative - Neurologic Neurologic: moves all extremities Results - Labs CBC & Chem 7: 06/03/20 09:27 06/04/20 08:22 Labs: Laboratory Last Values WBC 9.7 K/mm3 (4.5-11.0) 06/03/20 09:27 RBC 3.31 M/mm3 (3.65-5.03) L 06/03/20 09: Hgb 11.3 gm/dl (11.8-15.2) L 06/03/20 09: Hct 33.1 % (35.5-45.6) L 06/03/20 09:27 MCV 100 fl (84-94) H 06/03/20 09: MCH 34 pg (28-32) H 06/03/20 09: MCHC 34 % (32-34) 06/03/20 09: RDW 12.1 % (13.2-15.2) L 06/03/20 09: Plt Count 405 K/mm3 (140-440) 06/03/20 09: Lymph % (Auto) 15.0 % (13.4-35.0) 06/03/20 09:27 Hood % (Auto) 10.5 % (0.0-7.3) H 06/03/20 09: Eos % (Auto) 3.2 % (0.0-4.3) 06/03/20 09: Baso % (Auto) 0.3 % (0.0-1.8) 06/03/20 09: Lymph # (Auto) 1.4 K/mm3 (1.2-5.4) 06/03/20 09: Hood # (Auto) 1.0 K/mm3 (0.0-0.8) H 06/03/20 09:27 Eos # (Auto) 0.3 K/mm3 (0.0-0.4) 06/03/20 09: Baso # (Auto) 0.0 K/mm3 (0.0-0.1) 06/03/20 09:27 Add Manual Diff Complete 06/02/20 09:14 Total Counted 100 06/02/20 09:14 Seg Neutrophils % 71.0 % (40.0-70.0) H 06/03/20 09:27 Seg Neuts % (Manual) 71.0 % (40.0-70.0) H 06/02/20 09:14 Band Neutrophils % 1.0 % 06/02/20 09:14 Lymphocytes % (Manual) 13.0 % (13.4-35.0) L 06/02/20 09:14 Reactive Lymphs % (Man) 0 % 06/02/20 09:14 Monocytes % (Manual) 11.0 % (0.0-7.3) H 06/02/20 09:14 Eosinophils % (Manual) 3.0 % (0.0-4.3) 06/02/20 09:14 Basophils % (Manual) 0 % (0.0-1.8) 06/02/20 09:14 Metamyelocytes % 1.0 % 06/02/20 09:14 Myelocytes % 0 % 06/02/20 09:14 Promyelocytes % 0 % 06/02/20 09:14 Blast Cells % 0 % 06/02/20 09:14 Nucleated RBC % Not Reportable 06/02/20 09:14 Seg Neutrophils # 6.9 K/mm3 (1.8-7.7) 06/03/20 09:27 Seg Neutrophils # Man 6.5 K/mm3 (1.8-7.7) 06/02/20 09:14 Band Neutrophils # 0.1 K/mm3 06/02/20 09:14 Lymphocytes # (Manual) 1.2 K/mm3 (1.2-5.4) 06/02/20 09:14 Abs React Lymphs (Man) 0.0 K/mm3 06/02/20 09:14 Monocytes # (Manual) 1.0 K/mm3 (0.0-0.8) H 06/02/20 09:14 Eosinophils # (Manual) 0.3 K/mm3 (0.0-0.4) 06/02/20 09:14 Basophils # (Manual) 0.0 K/mm3 (0.0-0.1) 06/02/20 09:14 Metamyelocytes # 0.1 K/mm3 06/02/20 09:14 Myelocytes # 0.0 K/mm3 06/02/20 09:14 Promyelocytes # 0.0 K/mm3 06/02/20 09:14 Blast Cells # 0.0 K/mm3 06/02/20 09:14 WBC Morphology Not Reportable 06/02/20 09:14 Hypersegmented Neuts Not Reportable 06/02/20 09:14 Hyposegmented Neuts Not Reportable 06/02/20 09:14 Hypogranular Neuts Not Reportable 06/02/20 09:14 Smudge Cells Not Reportable 06/02/20 09:14 Toxic Granulation Not Reportable 06/02/20 09:14 Toxic Vacuolation Not Reportable 06/02/20 09:14 Dohle Bodies Not Reportable 06/02/20 09:14 Pelger-Huet Anomaly Not Reportable 06/02/20 09:14 Ibeth Rods Not Reportable 06/02/20 09:14 Platelet Estimate Consistent w auto 06/02/20 09:14 Clumped Platelets Not Reportable 06/02/20 09:14 Plt Clumps, EDTA Not Reportable 06/02/20 09:14 Large Platelets Not Reportable 06/02/20 09:14 Giant Platelets Not Reportable 06/02/20 09:14 Platelet Satelliting Not Reportable 06/02/20 09:14 Plt Morphology Comment Not Reportable 06/02/20 09:14 RBC Morphology Not Reportable 06/02/20 09:14 Dimorphic RBCs Not Reportable 06/02/20 09:14 Polychromasia Not Reportable 06/02/20 09:14 Hypochromasia Not Reportable 06/02/20 09:14 Poikilocytosis Not Reportable 06/02/20 09:14 Anisocytosis 1+ 06/02/20 09:14 Microcytosis Not Reportable 06/02/20 09:14 Macrocytosis Not Reportable 06/02/20 09:14 Spherocytes Not Reportable 06/02/20 09:14 Pappenheimer Bodies Not Reportable 06/02/20 09:14 Sickle Cells Not Reportable 06/02/20 09:14 Target Cells Not Reportable 06/02/20 09:14 Tear Drop Cells Not Reportable 06/02/20 09:14 Ovalocytes Not Reportable 06/02/20 09:14 Helmet Cells Not Reportable 06/02/20 09:14 Villegas-[place] Bodies Not Reportable 06/02/20 09:14 [place] Rings Not Reportable 06/02/20 09:14 Christopher Cells Not Reportable 06/02/20 09:14 Bite Cells Not Reportable 06/02/20 09:14 Crenated Cell Not Reportable 06/02/20 09:14 Elliptocytes Not Reportable 06/02/20 09:14 Acanthocytes (Spur) Not Reportable 06/02/20 09:14 Rouleaux Not Reportable 06/02/20 09:14 Hemoglobin C Crystals Not Reportable 06/02/20 09:14 Schistocytes Not Reportable 06/02/20 09:14 Malaria parasites Not Reportable 06/02/20 09:14 Bacilio Bodies Not Reportable 06/02/20 09:14 Hem Pathologist Commnt No 06/02/20 09:14 PT 17.4 Sec. (12.2-14.9) H 05/28/20 07:44 INR 1.39 (0.87-1.13) H 05/28/20 07:44 Sodium 136 mmol/L (137-145) L 06/03/20 09:27 Potassium 3.3 mmol/L (3.6-5.0) L 06/04/20 08:22 Chloride 99.4 mmol/L (98-107) 06/03/20 09:27 Carbon Dioxide 24 mmol/L (22-30) 06/03/20 09:27 Anion Gap 16 mmol/L 06/03/20 09:27 BUN 6 mg/dL (9-20) L 06/03/20 09:27 Creatinine 0.6 mg/dL (0.8-1.3) L 06/03/20 09:27 Estimated GFR > 60 ml/min 06/03/20 09:27 BUN/Creatinine Ratio 10 % 06/03/20 09:27 Glucose 99 mg/dL (75-100) 06/03/20 09:27 Calcium 8.2 mg/dL (8.4-10.2) L 06/03/20 09:27 Phosphorus 3.30 mg/dL (2.5-4.5) 06/04/20 08:22 Magnesium 1.90 mg/dL (1.7-2.3) 06/04/20 08:22 Total Bilirubin 1.10 mg/dL (0.1-1.2) 05/27/20 02:19 AST 17 units/L (5-40) 05/27/20 02:19 ALT 13 units/L (7-56) 05/27/20 02:19 Alkaline Phosphatase 67 units/L (35-129) 05/27/20 02:19 Total Protein 8.7 g/dL (6.3-8.2) H 05/27/20 02:19 Albumin 4.7 g/dL (3.9-5) 05/27/20 02:19 Albumin/Globulin Ratio 1.2 % 05/27/20 02:19 Lipase 14 units/L (13-60) 05/27/20 02:19 Urine Color Tess (Yellow) 05/27/20 03:15 Urine Turbidity Clear (Clear) 05/27/20 03:15 Urine pH 6.0 (5.0-7.0) 05/27/20 03:15 Ur Specific [place] 1.038 (1.003-1.030) H 05/27/20 03:15 Urine Protein 100 mg/dl mg/dL (Negative) 05/27/20 03:15 Urine Glucose (UA) Neg mg/dL (Negative) 05/27/20 03:15 Urine Ketones 80 mg/dL (Negative) 05/27/20 03:15 Urine Blood Neg (Negative) 05/27/20 03:15 Urine Nitrite Neg (Negative) 05/27/20 03:15 Urine Bilirubin Neg (Negative) 05/27/20 03:15 Urine Urobilinogen 2.0 mg/dL (<2.0) 05/27/20 03:15 Ur Leukocyte Esterase Neg (Negative) 05/27/20 03:15 Urine WBC (Auto) 1.0 /HPF (0.0-6.0) 05/27/20 03:15 Urine RBC (Auto) 8.0 /HPF (0.0-6.0) 05/27/20 03:15 U Epithel Cells (Auto) 1.0 /HPF (0-13.0) 05/27/20 03:15 Urine Mucus 3+ /HPF 05/27/20 03:15 Velazquez/IV: Voiding Method Toilet IV Catheter Type [Right INT / Saline Lock Forearm] IV Catheter Type [Left Distal INT / Saline Lock Port Antecubital] Active Medications - Current Medications Current Medications: Generic Name Dose Route Start Last Admin Trade Name Freq PRN Reason Stop Dose Admin Acetaminophen 650 mg 05/27/20 05:32 Tylenol PO Q4H PRN Pain MILD(1-3)/Fever >100.5/MENDEZ Diazepam 10 mg 05/30/20 10:22 Valium IV Q6H PRN Agitation Heparin Sodium (Porcine) 5,000 unit 05/27/20 14:00 06/05/20 06:43 Heparin SUB-Q 5,000 unit Q8HR AMOR Administration Hydromorphone HCl 0.5 mg 06/02/20 12:56 06/03/20 13:26 Dilaudid IV 0.5 mg Q6H PRN Administration Pain , Severe (7-10) Hydromorphone HCl 0.5 mg 06/05/20 17:17 Dilaudid IV 06/06/20 17:16 Q10MIN PRN Pain , Severe (7-10) Dextrose/Sodium Chloride 1,000 mls @ 100 mls/hr 05/29/20 15:00 06/04/20 21:59 D5ns IV 100 mls/hr DIRECT AMOR Administration Cefepime HCl 2 gm in 100 mls @ 200 mls/hr 05/29/20 16:00 06/05/20 11:05 Cefepime/Ns 2 Gm/100 Ml IV 06/07/20 22:29 200 mls/hr Q12HR AMOR Administration Protocol Fluconazole 200 mg in 100 mls @ 100 mls/hr 05/29/20 16:00 06/05/20 12:28 Diflucan IV 06/07/20 10:59 100 mls/hr Q24HR AMOR Administration Protocol Metronidazole 500 mg in 100 mls @ 100 mls/hr 05/29/20 16:00 06/05/20 06:43 Flagyl 500 Mg/100 Ml IV 06/08/20 06:59 100 mls/hr Q8HR AMOR Administration Protocol Lorazepam 1 mg 05/29/20 14:49 06/05/20 00:40 Ativan IV 1 mg Q4H PRN Administration Anxiety Morphine Sulfate 2 mg 05/27/20 05:32 06/04/20 11:02 Morphine IV 2 mg Q4H PRN Administration Pain, Moderate (4-6) Ondansetron HCl 4 mg 06/02/20 11:19 06/05/20 00:40 Zofran IV 4 mg Q4H PRN Administration Nausea And Vomiting Ondansetron HCl 4 mg 06/05/20 17:17 Zofran IV ONCE PRN Nausea And Vomiting Oxycodone/Acetaminophen 2 tab 05/27/20 13:14 05/31/20 21:02 Percocet 5/325 PO 2 tab Q4H PRN Administration Pain, Moderate (4-6) Phenol 1 spray 05/27/20 13:14 05/27/20 21:54 Chloraseptic MM 1 spray PRN PRN Administration Sore Throat Sodium Chloride 10 ml 05/27/20 10:00 06/05/20 12:28 Sodium Chloride Flush Syringe 10 Ml IV Not Given BID AMOR Sodium Chloride 10 ml 05/27/20 05:32 Sodium Chloride Flush Syringe 10 Ml IV PRN PRN LINE FLUSH Nutrition/Malnutrition Assess - Dietary Evaluation Nutrition/Malnutrition Findings: Nutrition Notes Start: 06/01/20 12:18 Freq: Status: Active Protocol: Document 06/04/20 11:07 LM (Rec: 06/04/20 11:11 LM [id number]) Nutrition Notes Initial or Follow up Brief Note Labs/Tests K 3.1 BUN 6 Cr 0.6 Na 136 Pertinent Medications Zofran Height 5 ft 9 in Weight 61.5 kg [place] Body Weight (kg) 72.72 BMI 20.0 Weight Status Appropriate Subjective/Other Information Pt remains NPO. Pt still with no BM. Nutrition Intervention Follow-Up By: 06/06/20 Additional Comments F/U for BM, diet advancement, need for nutrition support
[2020-06-05] MEDS: oxyCODONE /ACETAMINOPHEN 5-325MG TAB PO PRN (20:16)
[2020-06-05] MEDS: D5W/0.9% NACL 1,000 ML IV SCH (21:20)
[2020-06-06] MEDS: oxyCODONE /ACETAMINOPHEN 5-325MG TAB PO PRN ×2 (02:28→13:54)
[2020-06-06] MEDS: metroNIDAZOLE/NS 500 MG/100 ML 500 MG/100 ML BAG IV SCH ×2 (05:52→14:02)
[2020-06-06] MEDS: HEPARIN 5,000 UNIT/1 ML VIAL SUB-Q SCH ×2 (05:53→13:57)
[2020-06-06 06:06] LABS: Hematocrit 31.5 % (35.5-45.6); Hemoglobin 10.9 gm/dl (11.8-15.2)
[2020-06-06 06:10] LABS: Blood Urea Nitrogen 8 mg/dL (9-20); Calcium 8.3 mg/dL (8.4-10.2); Hemolysis Index 9
[2020-06-06 06:25] LABS: BUN/Creatinine Ratio 13
[2020-06-06] MEDS: CEFEPIME/NS 2 GM/100 ML 2 GM/100 ML BAG IV SCH (09:15)
[2020-06-06] MEDS: BICTEGRAV/EMTRICIT/TENOFOV ALA (NF) TAB PO SCH (09:29)
[2020-06-06] MEDS: FLUCONAZOLE 200 MG 200 MG/100 ML BAG IV SCH (10:30)
--- NOTE | 2020-06-06 11:28 | Progress Note ---
Assessment and Plan Assessment and plan: --DPC/delayed primary closure of the abdominal wound; 06/05/2020 Continue postop care, surgery following -- Acute appendicitis with abscess; NG tube DC'd s/p open appendectomy via ex lap and Drainage of abscess 05/27/2020 Postop care per surgery, Continue IV antibiotics for total 10 days Clear liquids, advance diet as tolerated adynamic ileus; resolved s/p DCP today 06/05/2020 --Persistent hypokalemia; potassium 3.3 Replenished with oral KCl Monitor levels --Sepsis, due to Acute appendicitis with large appendicolith cont cefepime, Flagyl, Diflucan for total 10 days per ID -- Nausea and vomiting ; resolved -- HIV disease/undetectable viral load ID following, patient will follow with his private ID/health department upon discharge -- DVT prophylaxis ; SCD, defer pharmacologic anticoagulation to surgery We will closely monitor the patient and adjust management as needed Plan of care reviewed with the patient and his nurse Consults and recommendations noted and appreciated. Hospitalist Physical - Constitutional Vitals: Temp Pulse Resp BP Pulse Ox 98.8 F 84 18 132/76 100 06/06/20 07:04 06/06/20 07:04 06/06/20 07:04 06/06/20 07:04 06/06/20 07:04 General appearance: Present: no acute distress, well-nourished Results - Labs CBC & Chem 7: 06/06/20 05:03 06/06/20 05:03 Labs: Laboratory Last Values WBC 9.7 K/mm3 (4.5-11.0) 06/03/20 09:27 RBC 3.31 M/mm3 (3.65-5.03) L 06/03/20 09:27 Hgb 10.9 gm/dl (11.8-15.2) L 06/06/20 05:03 Hct 31.5 % (35.5-45.6) L 06/06/20 05:03 MCV 100 fl (84-94) H 06/03/20 09:27 MCH 34 pg (28-32) H 06/03/20 09:27 MCHC 34 % (32-34) 06/03/20 09:27 RDW 12.1 % (13.2-15.2) L 06/03/20 09:27 Plt Count 405 K/mm3 (140-440) 06/03/20 09:27 Lymph % (Auto) 15.0 % (13.4-35.0) 06/03/20 09:27 [place] % (Auto) 10.5 % (0.0-7.3) H 06/03/20 09:27 Eos % (Auto) 3.2 % (0.0-4.3) 06/03/20 09:27 Baso % (Auto) 0.3 % (0.0-1.8) 06/03/20 09:27 Lymph # (Auto) 1.4 K/mm3 (1.2-5.4) 06/03/20 09:27 [place] # (Auto) 1.0 K/mm3 (0.0-0.8) H 06/03/20 09:27 Eos # (Auto) 0.3 K/mm3 (0.0-0.4) 06/03/20 09:27 Baso # (Auto) 0.0 K/mm3 (0.0-0.1) 06/03/20 09:27 Add Manual Diff Complete 06/02/20 09:14 Total Counted 100 06/02/20 09:14 Seg Neutrophils % 71.0 % (40.0-70.0) H 06/03/20 09:27 Seg Neuts % (Manual) 71.0 % (40.0-70.0) H 06/02/20 09:14 Band Neutrophils % 1.0 % 06/02/20 09:14 Lymphocytes % (Manual) 13.0 % (13.4-35.0) L 06/02/20 09:14 Reactive Lymphs % (Man) 0 % 06/02/20 09:14 Monocytes % (Manual) 11.0 % (0.0-7.3) H 06/02/20 09:14 Eosinophils % (Manual) 3.0 % (0.0-4.3) 06/02/20 09:14 Basophils % (Manual) 0 % (0.0-1.8) 06/02/20 09:14 Metamyelocytes % 1.0 % 06/02/20 09:14 Myelocytes % 0 % 06/02/20 09:14 Promyelocytes % 0 % 06/02/20 09:14 Blast Cells % 0 % 06/02/20 09:14 Nucleated RBC % Not Reportable 06/02/20 09:14 Seg Neutrophils # 6.9 K/mm3 (1.8-7.7) 06/03/20 09:27 Seg Neutrophils # Man 6.5 K/mm3 (1.8-7.7) 06/02/20 09:14 Band Neutrophils # 0.1 K/mm3 06/02/20 09:14 Lymphocytes # (Manual) 1.2 K/mm3 (1.2-5.4) 06/02/20 09:14 Abs React Lymphs (Man) 0.0 K/mm3 06/02/20 09:14 Monocytes # (Manual) 1.0 K/mm3 (0.0-0.8) H 06/02/20 09:14 Eosinophils # (Manual) 0.3 K/mm3 (0.0-0.4) 06/02/20 09:14 Basophils # (Manual) 0.0 K/mm3 (0.0-0.1) 06/02/20 09:14 Metamyelocytes # 0.1 K/mm3 06/02/20 09:14 Myelocytes # 0.0 K/mm3 06/02/20 09:14 Promyelocytes # 0.0 K/mm3 06/02/20 09:14 Blast Cells # 0.0 K/mm3 06/02/20 09:14 WBC Morphology Not Reportable 06/02/20 09:14 Hypersegmented Neuts Not Reportable 06/02/20 09:14 Hyposegmented Neuts Not Reportable 06/02/20 09:14 Hypogranular Neuts Not Reportable 06/02/20 09:14 Smudge Cells Not Reportable 06/02/20 09:14 Toxic Granulation Not Reportable 06/02/20 09:14 Toxic Vacuolation Not Reportable 06/02/20 09:14 Dohle Bodies Not Reportable 06/02/20 09:14 Pelger-Huet Anomaly Not Reportable 06/02/20 09:14 Ibeth Rods Not Reportable 06/02/20 09:14 Platelet Estimate Consistent w auto 06/02/20 09:14 Clumped Platelets Not Reportable 06/02/20 09:14 Plt Clumps, EDTA Not Reportable 06/02/20 09:14 Large Platelets Not Reportable 06/02/20 09:14 Giant Platelets Not Reportable 06/02/20 09:14 Platelet Satelliting Not Reportable 06/02/20 09:14 Plt Morphology Comment Not Reportable 06/02/20 09:14 RBC Morphology Not Reportable 06/02/20 09:14 Dimorphic RBCs Not Reportable 06/02/20 09:14 Polychromasia Not Reportable 06/02/20 09:14 Hypochromasia Not Reportable 06/02/20 09:14 Poikilocytosis Not Reportable 06/02/20 09:14 Anisocytosis 1+ 06/02/20 09:14 Microcytosis Not Reportable 06/02/20 09:14 Macrocytosis Not Reportable 06/02/20 09:14 Spherocytes Not Reportable 06/02/20 09:14 Pappenheimer Bodies Not Reportable 06/02/20 09:14 Sickle Cells Not Reportable 06/02/20 09:14 Target Cells Not Reportable 06/02/20 09:14 Tear Drop Cells Not Reportable 06/02/20 09:14 Ovalocytes Not Reportable 06/02/20 09:14 Helmet Cells Not Reportable 06/02/20 09:14 Villegas-[place] Bodies Not Reportable 06/02/20 09:14 [place] Rings Not Reportable 06/02/20 09:14 Christopher Cells Not Reportable 06/02/20 09:14 Bite Cells Not Reportable 06/02/20 09:14 Crenated Cell Not Reportable 06/02/20 09:14 Elliptocytes Not Reportable 06/02/20 09:14 Acanthocytes (Spur) Not Reportable 06/02/20 09:14 Rouleaux Not Reportable 06/02/20 09:14 Hemoglobin C Crystals Not Reportable 06/02/20 09:14 Schistocytes Not Reportable 06/02/20 09:14 Malaria parasites Not Reportable 06/02/20 09:14 Bacilio Bodies Not Reportable 06/02/20 09:14 Hem Pathologist Commnt No 06/02/20 09:14 PT 17.4 Sec. (12.2-14.9) H 05/28/20 07:44 INR 1.39 (0.87-1.13) H 05/28/20 07:44 Sodium 138 mmol/L (137-145) 06/06/20 05:03 Potassium 3.6 mmol/L (3.6-5.0) 06/06/20 05:03 Chloride 102.3 mmol/L (98-107) 06/06/20 05:03 Carbon Dioxide 24 mmol/L (22-30) 06/06/20 05:03 Anion Gap 15 mmol/L 06/06/20 05:03 BUN 8 mg/dL (9-20) L 06/06/20 05:03 Creatinine 0.6 mg/dL (0.8-1.3) L 06/06/20 05:03 Estimated GFR > 60 ml/min 06/06/20 05:03 BUN/Creatinine Ratio 13 % 06/06/20 05:03 Glucose 107 mg/dL (75-100) H 06/06/20 05:03 Calcium 8.3 mg/dL (8.4-10.2) L 06/06/20 05:03 Phosphorus 3.30 mg/dL (2.5-4.5) 06/04/20 08:22 Magnesium 2.00 mg/dL (1.7-2.3) 06/06/20 05:03 Total Bilirubin 1.10 mg/dL (0.1-1.2) 05/27/20 02:19 AST 17 units/L (5-40) 05/27/20 02:19 ALT 13 units/L (7-56) 05/27/20 02:19 Alkaline Phosphatase 67 units/L (35-129) 05/27/20 02:19 Total Protein 8.7 g/dL (6.3-8.2) H 05/27/20 02:19 Albumin 4.7 g/dL (3.9-5) 05/27/20 02:19 Albumin/Globulin Ratio 1.2 % 05/27/20 02:19 Lipase 14 units/L (13-60) 05/27/20 02:19 Urine Color Tess (Yellow) 05/27/20 03:15 Urine Turbidity Clear (Clear) 05/27/20 03:15 Urine pH 6.0 (5.0-7.0) 05/27/20 03:15 Ur Specific [place] 1.038 (1.003-1.030) H 05/27/20 03:15 Urine Protein 100 mg/dl mg/dL (Negative) 05/27/20 03:15 Urine Glucose (UA) Neg mg/dL (Negative) 05/27/20 03:15 Urine Ketones 80 mg/dL (Negative) 05/27/20 03:15 Urine Blood Neg (Negative) 05/27/20 03:15 Urine Nitrite Neg (Negative) 05/27/20 03:15 Urine Bilirubin Neg (Negative) 05/27/20 03:15 Urine Urobilinogen 2.0 mg/dL (<2.0) 05/27/20 03:15 Ur Leukocyte Esterase Neg (Negative) 05/27/20 03:15 Urine WBC (Auto) 1.0 /HPF (0.0-6.0) 05/27/20 03:15 Urine RBC (Auto) 8.0 /HPF (0.0-6.0) 05/27/20 03:15 U Epithel Cells (Auto) 1.0 /HPF (0-13.0) 05/27/20 03:15 Urine Mucus 3+ /HPF 05/27/20 03:15 Velazquez/IV: Voiding Method Toilet IV Catheter Type [Right Peripheral IV Antecubital] IV Catheter Type [Left Forearm INT / Saline Lock ] IV Catheter Type [Right INT / Saline Lock Forearm] IV Catheter Type [Left Distal INT / Saline Lock Port Antecubital] Active Medications - Current Medications Current Medications: Generic Name Dose Route Start Last Admin Trade Name Freq PRN Reason Stop Dose Admin Acetaminophen 650 mg 05/27/20 05:32 06/06/20 10:21 Tylenol PO 650 mg Q4H PRN Administration Pain MILD(1-3)/Fever >100.5/MENDEZ Diazepam 10 mg 05/30/20 10:22 Valium IV Q6H PRN Agitation Heparin Sodium (Porcine) 5,000 unit 05/27/20 14:00 06/06/20 05:53 Heparin SUB-Q 5,000 unit Q8HR AMOR Administration Hydromorphone HCl 0.5 mg 06/02/20 12:56 06/03/20 13:26 Dilaudid IV 0.5 mg Q6H PRN Administration Pain , Severe (7-10) Hydromorphone HCl 0.5 mg 06/05/20 17:17 Dilaudid IV 06/06/20 17:16 Q10MIN PRN Pain , Severe (7-10) Dextrose/Sodium Chloride 1,000 mls @ 100 mls/hr 05/29/20 15:00 06/05/20 21:20 D5ns IV 100 mls/hr DIRECT AMOR Administration Cefepime HCl 2 gm in 100 mls @ 200 mls/hr 05/29/20 16:00 06/06/20 09:15 Cefepime/Ns 2 Gm/100 Ml IV 06/07/20 22:29 200 mls/hr Q12HR AMOR Administration Protocol Fluconazole 200 mg in 100 mls @ 100 mls/hr 05/29/20 16:00 06/05/20 12:28 Diflucan IV 06/07/20 10:59 100 mls/hr Q24HR AMOR Administration Protocol Metronidazole 500 mg in 100 mls @ 100 mls/hr 05/29/20 16:00 06/06/20 05:52 Flagyl 500 Mg/100 Ml IV 06/08/20 06:59 100 mls/hr Q8HR AMOR Administration Protocol Lorazepam 1 mg 05/29/20 14:49 06/05/20 00:40 Ativan IV 1 mg Q4H PRN Administration Anxiety Morphine Sulfate 2 mg 05/27/20 05:32 06/04/20 11:02 Morphine IV 2 mg Q4H PRN Administration Pain, Moderate (4-6) Ondansetron HCl 4 mg 06/02/20 11:19 06/05/20 20:16 Zofran IV 4 mg Q4H PRN Administration Nausea And Vomiting Ondansetron HCl 4 mg 06/05/20 17:17 Zofran IV ONCE PRN Nausea And Vomiting Oxycodone/Acetaminophen 2 tab 05/27/20 13:14 06/06/20 02:28 Percocet 5/325 PO 2 tab Q4H PRN Administration Pain, Moderate (4-6) Phenol 1 spray 05/27/20 13:14 05/27/20 21:54 Chloraseptic MM 1 spray PRN PRN Administration Sore Throat Sodium Chloride 10 ml 05/27/20 10:00 06/05/20 21:21 Sodium Chloride Flush Syringe 10 Ml IV 10 ml BID AMOR Administration Sodium Chloride 10 ml 05/27/20 05:32 Sodium Chloride Flush Syringe 10 Ml IV PRN PRN LINE FLUSH Nutrition/Malnutrition Assess - Dietary Evaluation Nutrition/Malnutrition Findings: Nutrition Notes Start: 06/01/20 12:18 Freq: Status: Active Protocol: Document 06/04/20 11:07 LM (Rec: 06/04/20 11:11 LM [id number]) Nutrition Notes Initial or Follow up Brief Note Labs/Tests K 3.1 BUN 6 Cr 0.6 Na 136 Pertinent Medications Zofran Height 5 ft 9 in Weight 61.5 kg [place] Body Weight (kg) 72.72 BMI 20.0 Weight Status Appropriate Subjective/Other Information Pt remains NPO. Pt still with no BM. Nutrition Intervention Follow-Up By: 06/06/20 Additional Comments F/U for BM, diet advancement, need for nutrition support
--- NOTE | 2020-06-06 12:02 | Post Anesthesia Evaluation ---
- Post Anesthesia Evaluation Patient Participated: Yes Airway Patent: Yes Stable Respiratory Function: Yes Nausea/Vomiting: No Temp > 96.8F: Yes Pain Manageable: Yes Adequeate Hydration: Yes Anesthesia Complications: No Other Comments: late entry for anesthetic 06/05/20
[2020-06-06] MEDS: D5W/0.9% NACL 1,000 ML IV SCH (13:56)
--- NOTE | 2020-06-06 15:08 | Progress Note ---
Assessment and Plan Cultures: 05/27/2020 peritoneal culture from OR: Pseudomonas aeruginosa, E. coli, beta- hemolytic Streptococcus group C A/P: 24-year-old male with HIV, admitted to the hospital on 05/27/2020 with complaints of abdominal pain: #Acute appendicitis with perforation and peritonitis with gross purulence: Status post open appendectomy and washout. #HIV disease: Diagnosed in 2014, has been in excellent control with undetectable viral load for the last 4 years, on p.o. Biktarvy. Follows up at an HIV clinic in [place]. Recs: continue IV Cefepime, Flagyl and fluconazole, D8, plan to switch to PO abx to complete course (total 10 days given extent of infection noted in OR) If discharging on oral would send home with levofloxacin 750 mg every 24 hours, metronidazole, fluconazole 200 mg every 24 hours. Noted plan for drain removal on day of discharge Continue p.o. Biktarvy (use patient's own supply) Lucia Orr MD [facility] M: [phone] O: [phone] F: [phone] Subjective Date of service: 06/06/20 Interval history: Afebrile, normal white count. Went to the OR last night for delayed primary closure of abdominal wound. Objective - Exam Narrative Exam: Physical Exam: Constitutional: Alert, cooperative. No acute distress Head, Ears, Nose: Normocephalic, atraumatic. Eyes: Conjunctivae/corneas clear. No icterus. Neck: Supple, no meningeal signs Cardiovascular: S1, S2 normal. Respiratory: Good air entry, clear to auscultation bilaterally GI: Midline incision with dressing, drain with not much output, bowel sounds + Musculoskeletal: No pedal edema, no cyanosis. Skin: No rash or abscess Hem/Lymphatic: No palpable cervical or supraclavicular nodes. No lymphangitis Psych: Mood ok. Affect normal Neurological: Awake, alert, oriented. No gross abnormality - Constitutional Vitals: Vital Signs Temp Pulse Resp BP Pulse Ox 99 F 79 20 131/63 99 06/06/20 12:00 06/06/20 12:00 06/06/20 12:00 06/06/20 12:00 06/06/20 12:00 Temperature -Last 24 Hours Temperature 99 F Temperature 98.7 F Temperature 98.8 F Temperature 98.5 F Temperature 98.2 F Temperature 98.8 F Temperature 98.4 F Temperature 100.2 F Temperature 100.4 F - Labs CBC & Chem 7: 06/06/20 05:03 06/06/20 05:03 Labs: Abnormal lab results 06/06/20 06/06/20 Range/Units 05:03 05:03 Hgb 10.9 L (11.8-15.2) gm/dl Hct 31.5 L (35.5-45.6) % BUN 8 L (9-20) mg/dL Creatinine 0.6 L (0.8-1.3) mg/dL Glucose 107 H (75-100) mg/dL Calcium 8.3 L (8.4-10.2) mg/dL
--- NOTE | 2020-06-06 15:28 | Progress Note ---
Assessment and Plan POD#10 d/c home ID entry noted- pt has already rec'd 10 days of abx, so none needed at home. f/u my office late next week for staple removal (pt told to call for appt) Subjective Date of service: 06/06/20 Patient Reports: Positive: no new complaints, feels better, flatus, bowel movement Objective Vital Signs - 12hr 06/06/20 06/06/20 06/06/20 04:36 07:04 09:15 Temperature 98.5 F 98.8 F Pulse Rate 76 84 Respiratory 18 18 16 Rate Blood Pressure 118/81 132/76 Blood Pressure [Left] O2 Sat by Pulse 100 100 Oximetry 06/06/20 06/06/20 11:32 12:00 Temperature 98.7 F 99 F Pulse Rate 79 79 Respiratory 20 20 Rate Blood Pressure 131/63 Blood Pressure 131/63 [Left] O2 Sat by Pulse 99 99 Oximetry - Abdomen soft, tender, bowel sounds normal, not distended, wound (drsg dry; approp TTP) - Labs 06/06/20 05:03 06/06/20 05:03 Diabetes panel 06/06/20 Range/Units 05:03 Sodium 138 (137-145) mmol/L Potassium 3.6 (3.6-5.0) mmol/L Chloride 102.3 (98-107) mmol/L Carbon Dioxide 24 (22-30) mmol/L BUN 8 L (9-20) mg/dL Creatinine 0.6 L (0.8-1.3) mg/dL Glucose 107 H (75-100) mg/dL Calcium 8.3 L (8.4-10.2) mg/dL Calcium panel 06/06/20 Range/Units 05:03 Calcium 8.3 L (8.4-10.2) mg/dL Pituitary panel 06/06/20 Range/Units 05:03 Sodium 138 (137-145) mmol/L Potassium 3.6 (3.6-5.0) mmol/L Chloride 102.3 (98-107) mmol/L Carbon Dioxide 24 (22-30) mmol/L BUN 8 L (9-20) mg/dL Creatinine 0.6 L (0.8-1.3) mg/dL Glucose 107 H (75-100) mg/dL Calcium 8.3 L (8.4-10.2) mg/dL Adrenal panel 06/06/20 Range/Units 05:03 Sodium 138 (137-145) mmol/L Potassium 3.6 (3.6-5.0) mmol/L Chloride 102.3 (98-107) mmol/L Carbon Dioxide 24 (22-30) mmol/L BUN 8 L (9-20) mg/dL Creatinine 0.6 L (0.8-1.3) mg/dL Glucose 107 H (75-100) mg/dL Calcium 8.3 L (8.4-10.2) mg/dL
[2020-06-06 15:44] VITALS: BP 118/68
--- NOTE | 2020-06-06 16:54 | Discharge Summary ---
Providers - Providers Date of Admission: 05/27/20 05:11 Date of discharge: 06/06/20 Attending physician: AYM CHILDRESS 05/27/20 04:52 Consult to Physician [CONS] Stat Comment: Dr. Wren to see patient upon admission Consulting Provider: MICHELINE WREN Physician Instructions: Hospitalist admit; Keep NPO; Abx, pain control Reason For Exam: Acute appendicitis 05/29/20 14:14 Consult to Physician [CONS] Routine Comment: Consulting Provider: AMANDA WHALEY Physician Instructions: Reason For Exam: intraabominal abscess 05/30/20 10:05 Physical Therapy Evaluation and Treat [CONS] Routine Comment: Reason For Exam: placement 05/30/20 10:22 Consult to Wound/ET Nurse [CONS] Urgent Reason For Exam: wound vac please Primary care physician: [employer] MANAGER Hospitalization Condition: Stable Disposition: DC-30 STILL A PATIENT Exam - Constitutional Vitals: Temp Pulse Resp BP Pulse Ox 98.5 F 75 22 118/68 100 06/06/20 15:23 06/06/20 15:23 06/06/20 15:23 06/06/20 15:23 06/06/20 15:23 Plan Activity: advance as tolerated Diet: other (Soft diet advance as tolerated) Additional Instructions: Do not lift heavy weights. Advised to follow Dr. Andrew Quarles next week per schedule. Call the office. You have worsening symptoms contact MD or go to emergency room as needed Assessment: Increase activity as tolerated. Sit up and stand up slowly and wait 30 seconds before moving to prevent dizziness/falling down. Follow up with: BJ HINES MD [Primary Care Provider] - 3-5 Days MICHELINE WREN MD [Staff Physician] - 06/14/20 Prescriptions: oxyCODONE /ACETAMINOPHEN [Percocet 5/325 mg] 2 tab PO Q4H PRN 10 Days #25 tablet PRN Reason: Pain, Moderate (4-6)
== END 2020-06-06 18:15 | disposition home or self-care (01) | DRG 853 ==
LOC: ED 00:59 → 3A 05:11 → 3B-SURG 05:33
PROVIDERS: ADMIT Internal Medicine Geriatric Medicine; ATTEND Internal Medicine
PROC: 0DTJ0ZZ Resection of Appendix, Open Approach (ICD-10-PCS; principal; 2020-05-27)
PROC: 0WJG4ZZ Inspection of Peritoneal Cavity, Percutaneous Endoscopic Approach (ICD-10-PCS; 2020-05-27)
DX: A41.9 Sepsis, unspecified organism (principal); K35.33 Acute appendicitis with perforation, localized peritonitis, and gangrene, with abscess; K56.7 Ileus, unspecified; Z21 Asymptomatic human immunodeficiency virus [HIV] infection status; B96.4 Proteus (mirabilis) (morganii) as the cause of diseases classified elsewhere; B96.20 Unspecified Escherichia coli [E. coli] as the cause of diseases classified elsewhere; F41.9 Anxiety disorder, unspecified; F32.9 Major depressive disorder, single episode, unspecified; E87.6 Hypokalemia; B95.4 Other streptococcus as the cause of diseases classified elsewhere
CPT/HCPCS: 36415; 71045; 74018; 74177; 80048; 80053; 81001; 83690; 83735; 84100; 84132; 85007; 85014; 85018; 85025; 85610; 87075; 87076; 87116; 87186; 88304; 90471; 96365; G0378; A4217; J0330; J0692; J1100; J1170; J1450; J1644; J2060; J2250; J2270; J2370; J2405; J2543; J2704; J2710; J3010; J3480; J7030; J7042; Q9967

== ENCOUNTER 2020-09-01 15:22 | Inpatient (IN) | payer OTHER ==
--- NOTE | 2020-09-01 15:53 | Event Note ---
ED Screening Note Date of service: 09/01/20 Time: 15:52 ED Screening Note: Patient complains of sudden onset of mid abdominal pain and nausea and vomiting x last night This initial assessment/diagnostic orders/clinical plan/treatment(s) is/are subject to change based on patients health status, clinical progression and re- assessment by fellow clinical providers in the ED. Further treatment and workup at subsequent clinical providers discretion. Patient/guardian urged not to elope from the ED as their condition may be serious if not clinically assessed and managed. Initial orders include: Labs
[2020-09-01 15:59] LABS: Basophils % (Auto) 0.1 % (0.0-1.8); Hematocrit 41.8 % (35.5-45.6); Hemoglobin 14.3 gm/dl (11.8-15.2); Lymphocytes # (Auto) 1.7 K/mm3 (1.2-5.4); Lymphocytes % (Auto) 17.5 % (13.4-35.0); Mean Corpuscular HGB Conc 34 % (32-34); Mean Corpuscular Volume 96 fl (84-94); Monocytes # (Auto) 0.5 K/mm3 (0.0-0.8); Monocytes % (Auto) 5.8 % (0.0-7.3); Platelet Count 216 K/mm3 (140-440); Red Blood Count 4.35 M/mm3 (3.65-5.03); Red Cell Distribution Width 12.4 % (13.2-15.2)
[2020-09-01] MEDS ORDERED: ONDANSETRON 4 MG ODT TAB PO ONE (16:09)
[2020-09-01 16:22] LABS: Alanine Aminotransferase 20 units/L (7-56); Albumin 4.7 g/dL (3.9-5); Blood Urea Nitrogen 6 mg/dL (9-20); Calcium 9.7 mg/dL (8.4-10.2); Hemolysis Index 28
[2020-09-01 16:23] LABS: BUN/Creatinine Ratio 9
[2020-09-01 18:04] LABS: Bacteria,Urine 1+ /HPF (Negative); Bilirubin,Urine NEG (Negative); Blood,Urine NEG (Negative); Color,Urine Yellow (Yellow); Mucus,Urine 3+ /HPF; Urobilinogen,Urine < 2.0 mg/dL (<2.0)
--- NOTE | 2020-09-01 18:30 | Cat Scan Report ---
CT abdomen pelvis w con INDICATION: Acute mid abdominal pain, nausea/vomiting. TECHNIQUE: All CT scans at this location are performed using the following dose modulation technique: Automated exposure control. CONTRAST: IV. COMPARISON: 06/04/2020 CT ABDOMEN: The parenchymal organs are unremarkable in appearance other than a hemangioma at the dome the liver measuring 4.2 cm. The remaining parenchymal organs are unremarkable. The proximal and mid bowel is unremarkable. Dilated small bowel is seen in the inferior abdomen. CT PELVIS: Isolated segment of dilated small bowel extend into the pelvis. Twisting is seen at the me sentery inferiorly. The distal small bowel is decompressed. Moderate fluid is seen at the cul-de-sac. Negative for wall thickening or pneumatosis. IMPRESSION: 1. Isolated dilated small bowel at the inferior abdomen and pelvis with mesenteric twisting and moder ate free fluid. Differential diagnosis includes unusual small bowel obstruction and closed loop obstr uction. 2. Incidental hepatic hemangioma. Signer Name: Esvin Estrella MD Signed: 09/01/2020 6:26 PM Workstation Name: [id number]
[2020-09-01] MEDS ORDERED: SODIUM CHLORIDE 0.9% 1000 ML 1,000 ML IV ONE (18:53)
[2020-09-01] MEDS ORDERED: HYDROmorphone 1 MG/1 ML INJ IV ONE (18:53)
[2020-09-01] MEDS ORDERED: ONDANSETRON 4 MG/2 ML INJ IV ONE (18:53)
--- NOTE | 2020-09-01 19:01 | Emergency Department Report ---
ED Abdominal Pain HPI - General Chief Complaint: Abdominal Pain Stated Complaint: STOMACH PAIN/VOMITTING Time Seen by Provider: 09/01/20 18:48 Source: patient Mode of arrival: Ambulatory Limitations: No Limitations - History of Present Illness Initial Comments: Patient is 25-year-old male with history of HIV and recent appendectomy complicated with perforation and peritonitis in May 2020. Patient presented to the ER complaining of sudden onset of abdominal pain last night described as crampy in nature, 10 out of 10 associated with nausea and vomiting. Patient stated that he is unable to keep anything down since last night. Patient denied any fever or chills. No diarrhea. Patient denied any recent contact with COVID-19 patient. MD Complaint: abdominal pain -: Last night Location: diffuse Radiation: none Migration to: no migration Severity scale (0 -10): 10 Quality: cramping - Related Data Home Medications Medication Instructions Recorded Confirmed Last Taken Bictegrav/Emtricit/Tenofov Ala 1 each PO DAILY 05/30/20 05/30/20 Unknown [Biktarvy 50-200-25 mg (Nf)] Previous Rx's Medication Instructions Recorded Last Taken Type oxyCODONE /ACETAMINOPHEN [Percocet 2 tab PO Q4H PRN 10 Days #25 tablet 06/06/20 Unknown Rx 5/325 mg] Allergies Allergy/AdvReac Type Severity Reaction Status Date / Time No Known Allergies Allergy Unverified 05/27/20 02:09 ED Review of Systems ROS: Stated complaint: STOMACH PAIN/VOMITTING Other details as noted in HPI Comment: All other systems reviewed and negative Constitutional: denies: chills, fever Respiratory: denies: cough, shortness of breath, SOB with exertion, SOB at rest Cardiovascular: denies: chest pain, palpitations Gastrointestinal: abdominal pain, nausea, vomiting. denies: diarrhea, constipation, hematemesis, melena, hematochezia Musculoskeletal: denies: back pain Neurological: denies: headache, weakness, numbness, paresthesias, confusion, abnormal gait ED Past Medical Hx - Past Medical History Hx Hypertension: No Hx Heart Attack/AMI: No Hx Congestive Heart Failure: No Hx Diabetes: No Hx Liver Disease: No Hx Renal Disease: No Hx Sickle Cell Disease: No Hx Seizures: No Hx Asthma: No Hx COPD: No Hx HIV: Yes - Surgical History Hx Pacemaker: No Hx Internal Defibrillator: No - Social History Smoking Status: Current Every Day Smoker - Medications Home Medications: Home Medications Medication Instructions Recorded Confirmed Last Taken Type Bictegrav/Emtricit/Tenofov Ala 1 each PO DAILY 05/30/20 05/30/20 Unknown History [Biktarvy 50-200-25 mg (Nf)] oxyCODONE /ACETAMINOPHEN [Percocet 2 tab PO Q4H PRN 10 Days #25 tablet 06/06/20 Unknown Rx 5/325 mg] ED Physical Exam - General Limitations: No Limitations General appearance: alert, in no apparent distress - Head Head exam: Present: atraumatic, normocephalic, normal inspection - ENT ENT exam: Present: mucous membranes dry - Neck Neck exam: Present: normal inspection, full ROM. Absent: tenderness, meningismus - Respiratory Respiratory exam: Present: normal lung sounds bilaterally - Cardiovascular Cardiovascular Exam: Present: regular rate, normal rhythm, normal heart sounds - GI/Abdominal GI/Abdominal exam: Present: soft, normal bowel sounds. Absent: distended, tenderness, guarding, rebound, rigid, organomegaly, mass, bruit, pulsatile mass, hernia - Extremities Exam Extremities exam: Present: normal inspection, full ROM, normal capillary refill. Absent: pedal edema, calf tenderness - Back Exam Back exam: Present: normal inspection, full ROM. Absent: CVA tenderness (R), CVA tenderness (L) - Neurological Exam Neurological exam: Present: alert, oriented X3, CN II-XII intact - Psychiatric Psychiatric exam: Present: normal mood - Skin Skin exam: Present: warm, intact, normal color ED Course Vital Signs 09/01/20 09/01/20 15:38 19:14 Temperature 98.1 F Pulse Rate 93 H Respiratory 19 18 Rate Blood Pressure 136/75 [Right] O2 Sat by Pulse 98 Oximetry ED Medical Decision Making - Lab Data Result diagrams: 09/01/20 15:47 09/01/20 15:47 - Radiology Data Radiology results: report reviewed - Medical Decision Making Patient is 25-year-old male with history of HIV and recent appendectomy complicated with perforation and peritonitis in May 2020. Patient presented to the ER complaining of sudden onset of abdominal pain last night described as crampy in nature, 10 out of 10 associated with nausea and vomiting. Patient stated that he is unable to keep anything down since last night. Patient denied any fever or chills. No diarrhea. Patient denied any recent contact with COVID-19 patient. Patient received Dilaudid, Zofran and normal saline. Patient stated that his pain is much better no vomiting observed in the ER. I discussed the patient with Dr. Torres, surgeon telephone clerk telegraph office, she advised to admit the patient to the hospital and she will follow-up with the patient. I discussed the patient with Dr. Anderson, He agreed to admit the patient to medical service for further management. Critical care attestation.: If time is entered above; I have spent that time in minutes in the direct care of this critically ill patient, excluding procedure time. ED Disposition Clinical Impression: Acute abdominal pain, Small bowel obstruction Disposition: 09 OP ADMIT IP TO THIS HOSP Is pt being admited?: Yes Condition: Stable Referrals: POSITIVE,IMPACT [Other] - 3-5 Days
[2020-09-01] MEDS ORDERED: HYDROmorphone 2 MG/1 ML INJ IV ONE (21:33)
[2020-09-01] MEDS ORDERED: ONDANSETRON 4 MG/2 ML INJ IV PRN ×2 (22:47→22:59)
--- NOTE | 2020-09-01 22:52 | Consultation ---
History of Present Illness Consult date: 09/01/20 Reason for consult: abdominal pain Chief complaint: abdominal pain, n/v - History of present illness History of present illness: 25 yo M with hx of recent hospitalization at [facility] at which time he underwent lap converted to open appendectomy due to perforation and gross peritonitis on 05/27/[address] Miramontes. The patient had a prolonged hospital course due to ileus and was eventually discharged on 06/06/20. He presents to ER today with 24 hours of crampy abdominal pain in the mid abdomen. Pain does not radiate. It is relieved with pain medication administered in ER. He states the pain started a few hours after he ate a large meal at [employer] followed by 3 bags of chips. He felt this may have been too much food and triggered the symptoms. He vomited the food content but continued to vomit after this. Due to persistent vomiting, he came in to ER. He states he has not vomited since receiving IV zofran and has been able to get OOB on his own to use the restroom. Last BM was today. No f/c, cp, sob, diarrhea. States he is somewhat hungry. He has hiccups. Dr. Payne informed me that he was unable to reach Dr. Miramontes. Past History Past Medical History: other (perforated appendicitis, HIV) Past Surgical History: Other (lap converted to open appendectomy 05/27/20, delayed secondary closure of abdominal incision 06/05/20, hx testicular torsion sx ) Social history: no significant social history Family history: no significant family history Medications and Allergies Allergies Allergy/AdvReac Type Severity Reaction Status Date / Time No Known Allergies Allergy Unverified 05/27/20 02:09 Home Medications Medication Instructions Recorded Confirmed Last Taken Type Bictegrav/Emtricit/Tenofov Ala 1 each PO DAILY 05/30/20 05/30/20 Unknown History [Biktarvy 50-200-25 mg (Nf)] oxyCODONE /ACETAMINOPHEN [Percocet 2 tab PO Q4H PRN 10 Days #25 tablet 06/06/20 Unknown Rx 5/325 mg] Active Meds: Active Medications Hydromorphone HCl (Hydromorphone 1 Mg/1 Ml Inj) 0.5 mg IV Q3H PRN PRN Reason: Pain , Severe (7-10) Sodium Chloride (Nacl 0.9% 1000 Ml) 1,000 mls @ 125 mls/hr IV DIRECT AMOR Ondansetron HCl (Ondansetron 4 Mg/2 Ml Inj) 4 mg IV Q6H PRN PRN Reason: Nausea And Vomiting Review of Systems All systems: negative (10 pt ROS performed and negative except for that listed in HPI) Exam Vital Signs Temp Pulse Resp BP Pulse Ox 98.1 F 93 H 19 136/75 98 09/01/20 15:38 09/01/20 15:38 09/01/20 15:38 09/01/20 15:38 09/01/20 15:38 Narrative exam: Gen; AAOx3. NAD. Nontoxic appearing, well nourished ENT: no scleral icterus or conjunctival pallor CV: s1, S2+ Resp: even and unlabored Abd: soft, ND, mild discomfort to palpation of mid abdomen. No evidence of rebound, rigidity, or guarding. Well healed midline surgical scar Ext: no c/c/e Results - Labs 09/01/20 15:47 09/01/20 15:47 Abnormal lab results 09/01/20 09/01/20 Range/Units 15:47 15:47 MCV 96 H (84-94) fl MCH 33 H (28-32) pg RDW 12.4 L (13.2-15.2) % Seg Neutrophils % 76.6 H (40.0-70.0) % BUN 6 L (9-20) mg/dL Creatinine 0.7 L (0.8-1.3) mg/dL Glucose 104 H (75-100) mg/dL Lipase 134 H (13-60) units/L Diabetes panel 09/01/20 Range/Units 15:47 Sodium 140 (137-145) mmol/L Potassium 3.8 (3.6-5.0) mmol/L Chloride 101.7 (98-107) mmol/L Carbon Dioxide 27 (22-30) mmol/L BUN 6 L (9-20) mg/dL Creatinine 0.7 L (0.8-1.3) mg/dL Glucose 104 H (75-100) mg/dL Calcium 9.7 (8.4-10.2) mg/dL AST 21 (5-40) units/L ALT 20 (7-56) units/L Alkaline Phosphatase 55 (35-129) units/L Total Protein 7.5 (6.3-8.2) g/dL Albumin 4.7 (3.9-5) g/dL Calcium panel 09/01/20 Range/Units 15:47 Calcium 9.7 (8.4-10.2) mg/dL Albumin 4.7 (3.9-5) g/dL Pituitary panel 09/01/20 Range/Units 15:47 Sodium 140 (137-145) mmol/L Potassium 3.8 (3.6-5.0) mmol/L Chloride 101.7 (98-107) mmol/L Carbon Dioxide 27 (22-30) mmol/L BUN 6 L (9-20) mg/dL Creatinine 0.7 L (0.8-1.3) mg/dL Glucose 104 H (75-100) mg/dL Calcium 9.7 (8.4-10.2) mg/dL Adrenal panel 09/01/20 Range/Units 15:47 Sodium 140 (137-145) mmol/L Potassium 3.8 (3.6-5.0) mmol/L Chloride 101.7 (98-107) mmol/L Carbon Dioxide 27 (22-30) mmol/L BUN 6 L (9-20) mg/dL Creatinine 0.7 L (0.8-1.3) mg/dL Glucose 104 H (75-100) mg/dL Calcium 9.7 (8.4-10.2) mg/dL Total Bilirubin 0.60 (0.1-1.2) mg/dL AST 21 (5-40) units/L ALT 20 (7-56) units/L Alkaline Phosphatase 55 (35-129) units/L Total Protein 7.5 (6.3-8.2) g/dL Albumin 4.7 (3.9-5) g/dL - Imaging CT scan - abdomen: report reviewed, image reviewed CT scan - pelvis: report reviewed, image reviewed Assessment and Plan 25 yo M with abdominal pain, n/v Plan: 1. Admit to hospitalist service 2. IVF 3. prn pain and nausea control 4. recommend NGT if vomiting 5. DVT ppx 6. repeat CBC, BMP in am 7. obstruction series in am Patient's current clinical picture does not fit with closed loop bowel obstruction. More likely pSBO vs enteritis. He is currently stable. WBC and lactate normal. Abdominal exam without significant TTP, no peritoneal signs. Will treat as above and reevaluate in am. Thank you, please call with questions.
[2020-09-01] MEDS ORDERED: ACETAMINOPHEN 325 MG TAB PO PRN (22:59)
[2020-09-01] MEDS ORDERED: MORPHINE 2 MG/1 ML INJ IV PRN (22:59)
[2020-09-01] MEDS ORDERED: SODIUM CHLORIDE 0.9% 1000 ML 1,000 ML IV SCH (23:00)
--- NOTE | 2020-09-01 23:18 | History and Physical Report ---
History of Present Illness Date of examination: 09/01/20 Date of admission: 09/01/2020 Chief complaint: Nausea Vomiting Abdominal pain History of present illness: 5-year-old -[place] male with known history of HIV-unknown CD4 count presents to the emergency room today complaining of sudden onset of abdominal pain which started overnight. Patient was recently admitted in this hospital for appendectomy complicated with perforation and peritonitis in May 2020. Abdominal pain is said to be crampy and on a scale of 10 was 10/10 in severity. He has had nausea and vomiting. Denies any diarrhea he denies any fever or chills, no chest pain or shortness of breath, no hematuria or dysuria. Patient denies any sick contacts and no recent travel, denies any contact with anyone with COVID-19. Work-up in the emergency room today including CT scan of the abdomen reveals small bowel obstruction. General surgeon Dr. Torres has been consulted by the ER physician. Past History Past Medical History: other (perforated appendicitis, HIV) Past Surgical History: Other (lap converted to open appendectomy 05/27/20, delayed secondary closure of abdominal incision 06/05/20, hx testicular torsion sx ) Social history: no significant social history Family history: no significant family history Medications and Allergies Allergies Allergy/AdvReac Type Severity Reaction Status Date / Time No Known Allergies Allergy Unverified 05/27/20 02:09 Home Medications Medication Instructions Recorded Confirmed Last Taken Type Bictegrav/Emtricit/Tenofov Ala 1 each PO DAILY 05/30/20 05/30/20 Unknown History [Biktarvy 50-200-25 mg (Nf)] oxyCODONE /ACETAMINOPHEN [Percocet 2 tab PO Q4H PRN 10 Days #25 tablet 06/06/20 Unknown Rx 5/325 mg] Active Meds: Active Medications Acetaminophen (Acetaminophen 325 Mg Tab) 650 mg PO Q4H PRN PRN Reason: Pain MILD(1-3)/Fever >100.5/MENDEZ Hydromorphone HCl (Hydromorphone 1 Mg/1 Ml Inj) 0.5 mg IV Q3H PRN PRN Reason: Pain , Severe (7-10) Sodium Chloride (Nacl 0.9% 1000 Ml) 1,000 mls @ 125 mls/hr IV DIRECT AMOR Sodium Chloride (Nacl 0.9% 1000 Ml) 1,000 mls @ 125 mls/hr IV DIRECT AMOR Morphine Sulfate (Morphine 2 Mg/1 Ml Inj) 2 mg IV Q4H PRN PRN Reason: Pain, Moderate (4-6) Ondansetron HCl (Ondansetron 4 Mg/2 Ml Inj) 4 mg IV Q6H PRN PRN Reason: Nausea And Vomiting Ondansetron HCl (Ondansetron 4 Mg/2 Ml Inj) 4 mg IV Q8H PRN PRN Reason: Nausea And Vomiting Sodium Chloride (Sodium Chloride 0.9% 10 Ml Flush Syringe) 10 ml IV BID AMOR Sodium Chloride (Sodium Chloride 0.9% 10 Ml Flush Syringe) 10 ml IV PRN PRN PRN Reason: LINE FLUSH Review of Systems Constitutional: no fever, no chills Ears, nose, mouth and throat: no nasal congestion, no sore throat Cardiovascular: no chest pain, no palpitations Respiratory: no cough, no shortness of breath Gastrointestinal: abdominal pain, nausea, vomiting, no diarrhea, no coffee ground emesis, no BRBPR, no melena Genitourinary Male: no dysuria, no hematuria, no flank pain Musculoskeletal: no neck pain, no low back pain Integumentary: no rash, no pruritis Neurological: no headaches, no confusion Psychiatric: no anxiety, no depression Exam - Constitutional Vitals: Temp Pulse Resp BP Pulse Ox 98.1 F 93 H 18 136/75 98 09/01/20 15:38 09/01/20 15:38 09/01/20 19:14 09/01/20 15:38 09/01/20 15:38 General appearance: Present: no acute distress, well-nourished - EENT Eyes: Present: PERRL, EOM intact. Absent: scleral icterus ENT: hearing intact, clear oral mucosa, dentition normal - Neck Neck: Present: supple, normal ROM - Respiratory Respiratory: bilateral: CTA - Cardiovascular Rhythm: regular Heart Sounds: Present: S1 & S2. Absent: gallop, systolic murmur, diastolic murmur, rub - Extremities Extremities: no ischemia, pulses intact, pulses symmetrical, No edema, Full ROM Peripheral Pulses: within normal limits - Abdominal General gastrointestinal: Present: soft, tender (Epigastric tenderness ,Minimal guarding, No rebound tenderness.), non-distended, normal bowel sounds. Absent: mass - Integumentary Integumentary: Present: clear, warm, dry. Absent: rash - Musculoskeletal Musculoskeletal: strength equal bilaterally - Psychiatric Psychiatric: appropriate mood/affect, intact judgment & insight, memory intact, cooperative - Neurologic Neurologic: CNII-XII intact, no focal deficits, moves all extremities Results - Labs CBC & Chem 7: 09/01/20 15:47 09/01/20 15:47 Labs: Abnormal lab results 09/01/20 09/01/20 Range/Units 15:47 15:47 MCV 96 H (84-94) fl MCH 33 H (28-32) pg RDW 12.4 L (13.2-15.2) % Seg Neutrophils % 76.6 H (40.0-70.0) % BUN 6 L (9-20) mg/dL Creatinine 0.7 L (0.8-1.3) mg/dL Glucose 104 H (75-100) mg/dL Lipase 134 H (13-60) units/L Assessment and Plan - Patient Problems (1) Acute abdominal pain Current Visit: Yes Status: Acute Plan to address problem: Probably secondary to small bowel obstruction. Patient placed on IV analgesic medication. (2) Small bowel obstruction Current Visit: Yes Status: Acute Plan to address problem: General surgeon consulted for evaluation. Patient will be undergoing abdominal [id number] series in the a.m. (3) DVT prophylaxis Current Visit: No Status: Acute Plan to address problem: Patient placed on sequential compression device. (4) Full code status Current Visit: No Status: Acute Plan to address problem: Patient is a full code.
[2020-09-01] MEDS: SODIUM CHLORIDE 0.9% 1000 ML 1,000 ML IV SCH (23:53)
[2020-09-01] MEDS: HYDROmorphone 1 MG/1 ML INJ IV PRN (23:53)
[2020-09-02] MEDS: HYDROmorphone 1 MG/1 ML INJ IV PRN ×6 (02:10→22:32)
[2020-09-02] MEDS: SODIUM CHLORIDE 0.9% 1000 ML 1,000 ML IV SCH (05:20)
[2020-09-02 06:17] LABS: Eosinophils % (Auto) 0.1 % (0.0-4.3); Hematocrit 39.3 % (35.5-45.6); Hemoglobin 13.2 gm/dl (11.8-15.2); Lymphocytes % (Auto) 21.6 % (13.4-35.0); Mean Corpuscular HGB Conc 34 % (32-34); Mean Corpuscular Volume 98 fl (84-94); Monocytes # (Auto) 0.8 K/mm3 (0.0-0.8); Monocytes % (Auto) 8.3 % (0.0-7.3); Platelet Count 199 K/mm3 (140-440); Red Cell Distribution Width 12.4 % (13.2-15.2)
[2020-09-02 06:30] LABS: INR 1.15 (0.87-1.13)
[2020-09-02 06:35] LABS: BUN/Creatinine Ratio 9; Blood Urea Nitrogen 7 mg/dL (9-20); Calcium 8.7 mg/dL (8.4-10.2); Hemolysis Index 8
--- NOTE | 2020-09-02 09:32 | XRay Report ---
ABDOMEN 2 VIEW(S) INDICATION / CLINICAL INFORMATION: Small bowel obstruction COMPARISON: CT of the abdomen and pelvis, 09/01/2020 FINDINGS: TUBES / LINES: None. BOWEL GAS PATTERN: Several loops of gas-distended bowel are seen within the central abdomen appearing similar to the CT performed one day ago. ADDITIONAL FINDINGS: Contrast is noted within the urinary bladder from previous study. Accompanying chest radiograph demonstrates no evidence of acute cardiopulmonary abnormality. IMPRESSION: 1. Stable appearance of several loops of gas-distended bowel within the central abdomen compatible wi th closed loop obstruction. Signer Name: Cheryl Rios MD Signed: 09/02/2020 9:28 AM Workstation Name: [id number]
--- NOTE | 2020-09-02 11:36 | Progress Note ---
Assessment and Plan 25 yo M with abd pain, n/v - SBO Obs series - dilated loop of small bowel in mid abdomen with air fluid level. Minimal gas in cecum. Plan: 1. NPO 2. IVF 3. prn pain and nausea control 4. DVT ppx 5. As patient continues to c/o severe abdominal pain, increased abdominal pain on exam, and radiology reading concerning for closed loop bowel obstruction on KUB, recommend diagnostic laparoscopy to evaluate bowel and intervene as needed. Explained this to patient who is agreeable. All risks, benefits, alternatives to surgery discussed and questions answered. Consent obtained for dx lap, possible exlap, possible bowel resection. RN cook house supervisor notified to call in OR team. Patient will notify his mother and best friend about plan. 6. preop abx Thank you, please call with questions. Evaluation and treatment of this patient was during the time of the national and state emergency arising from COVID19 coronavirus pandemic. Treatment and procedures performed meet the current and available best practice and guidelines for patient during the COVID pandemic. Subjective Date of service: 09/02/20 Narrative: Pt seen and examined. No overnight events. No f/c. No n/v. Continues to c/o mid and lower abdominal pain that is crampy, severe, and has only been relieved with IV pain medications. No flatus or BM. Objective Vital Signs - 12hr 09/01/20 09/02/20 09/02/20 23:59 00:00 04:51 Temperature 99.0 F Pulse Rate 88 76 Respiratory 16 16 18 Rate Blood Pressure 126/74 Blood Pressure 124/58 [Right] O2 Sat by Pulse 99 100 Oximetry 09/02/20 07:35 Temperature 98.3 F Pulse Rate 65 Respiratory 16 Rate Blood Pressure 123/61 Blood Pressure [Right] O2 Sat by Pulse 100 Oximetry - General physical appearance Narrative Exam: Gen: AAOx3. NAD CV: s1, S2+ Resp: even and unlabored Abd: soft, ND, + periumbilical and lower mid abdominal TTP. Voluntary guarding but no rebound or rigidity. Ext: no c/c/e - Labs 09/02/20 05:50 09/02/20 05:50 Diabetes panel 09/01/20 09/02/20 Range/Units 15:47 05:50 Sodium 140 143 (137-145) mmol/L Potassium 3.8 4.2 (3.6-5.0) mmol/L Chloride 101.7 106.3 (98-107) mmol/L Carbon Dioxide 27 27 (22-30) mmol/L BUN 6 L 7 L (9-20) mg/dL Creatinine 0.7 L 0.8 (0.8-1.3) mg/dL Glucose 104 H 88 (75-100) mg/dL Calcium 9.7 8.7 (8.4-10.2) mg/dL AST 21 (5-40) units/L ALT 20 (7-56) units/L Alkaline Phosphatase 55 (35-129) units/L Total Protein 7.5 (6.3-8.2) g/dL Albumin 4.7 (3.9-5) g/dL Calcium panel 09/01/20 09/02/20 Range/Units 15:47 05:50 Calcium 9.7 8.7 (8.4-10.2) mg/dL Albumin 4.7 (3.9-5) g/dL Pituitary panel 09/01/20 09/02/20 Range/Units 15:47 05:50 Sodium 140 143 (137-145) mmol/L Potassium 3.8 4.2 (3.6-5.0) mmol/L Chloride 101.7 106.3 (98-107) mmol/L Carbon Dioxide 27 27 (22-30) mmol/L BUN 6 L 7 L (9-20) mg/dL Creatinine 0.7 L 0.8 (0.8-1.3) mg/dL Glucose 104 H 88 (75-100) mg/dL Calcium 9.7 8.7 (8.4-10.2) mg/dL Adrenal panel 09/01/20 09/02/20 Range/Units 15:47 05:50 Sodium 140 143 (137-145) mmol/L Potassium 3.8 4.2 (3.6-5.0) mmol/L Chloride 101.7 106.3 (98-107) mmol/L Carbon Dioxide 27 27 (22-30) mmol/L BUN 6 L 7 L (9-20) mg/dL Creatinine 0.7 L 0.8 (0.8-1.3) mg/dL Glucose 104 H 88 (75-100) mg/dL Calcium 9.7 8.7 (8.4-10.2) mg/dL Total Bilirubin 0.60 (0.1-1.2) mg/dL AST 21 (5-40) units/L ALT 20 (7-56) units/L Alkaline Phosphatase 55 (35-129) units/L Total Protein 7.5 (6.3-8.2) g/dL Albumin 4.7 (3.9-5) g/dL
--- NOTE | 2020-09-02 12:46 | Anesthesia Consultation ---
Anesthesia Consult and Med Hx Date of service: 09/02/20 - Airway Anesthetic Teeth Evaluation: Good ROM Head & Neck: Adequate Mental/Hyoid Distance: Adequate Mallampati Class: Class II Intubation Access Assessment: Good - Pulmonary Exam CTA: Yes - Cardiac Exam Cardiac Exam: RRR - Pre-Operative Health Status ASA Pre-Surgery Classification: ASA2, Emergency (HIV +) Proposed Anesthetic Plan: General - Pulmonary Hx Smoking: Yes (THC) Hx Asthma: No Hx Respiratory Symptoms: No SOB: No COPD: No Hx Pneumonia: No Hx Sleep Apnea: No - Cardiovascular System Hx Hypertension: No Hx Coronary Artery Disease: No Hx Heart Attack/AMI: No Hx Angina: No Hx Percutaneous Transluminal Coronary Angioplasty (PTCA): No Hx Cardia Arrhythmia: No Hx Pacemaker: No Hx Internal Defibrillator: No Hx Valvular Heart Disease: No Hx Heart Murmur: No Hx Peripheral Vascular Disease: No - Central Nervous System Hx Neuromuscular Disorder: No Hx Seizures: No CVA: No Hx Back Pain: No Hx Psychiatric Problems: No - Gastrointestinal Hx Ulcer: No Hx Gastroesophageal Reflux Disease: No - Endocrine Hx Renal Disease: No Hx End Stage Renal Disease: No Hx Cirrhosis: No Hx Liver Disease: No Hx Insulin Dependent Diabetes: No Hx Non-Insulin Dependent Diabetes: No Hx Thyroid Disease: No Hx Hypothyroidism: No Hx Hyperthyroidism: No - Hematic Hx Anemia: No Hx Sickle Cell Disease: No - Other Systems Hx Alcohol Use: Yes (occ.) Hx Substance Use: Yes (THC) Hx Cancer: No Hx Obesity: No
--- NOTE | 2020-09-02 12:47 | Anesthesia Day of Surgery ---
Anesthesia Day of Surgery - Day of Surgery Patient Examined: Yes Patient H&P Reviewed: Yes Patient is NPO: Yes
[2020-09-02] MEDS ORDERED: BUPIVACAINE-EPINEPHRINE/PF 0.5%-1:200,000 (30 ML) VIAL INFILTRATI ONE ×2 (13:03→14:02)
[2020-09-02] MEDS ORDERED: LIDOCAINE (1%) 10 MG/1 ML VIAL 20 ML MDV ONE (13:03)
[2020-09-02] MEDS ORDERED: propofoL 200 MG/20 ML VIAL IV ONE (13:15)
[2020-09-02] MEDS ORDERED: fentaNYL 100 MCG/2 ML INJ ONE (13:15)
[2020-09-02] MEDS ORDERED: MIDAZOLAM 2 MG/2 ML INJ ONE ×2 (13:15→14:43)
[2020-09-02] MEDS ORDERED: LIDOCAINE (1%) 10 MG/1 ML VIAL 20 ML MDV INFILTRATI ONE (14:02)
[2020-09-02] MEDS ORDERED: SODIUM CHLORIDE 0.9% IRR 1,500 ML BOTTLE IR ONE (14:03)
[2020-09-02] MEDS ORDERED: SODIUM CHLORIDE 0.9% IRRIG SOLN 2000 ML IR ONE (14:16)
[2020-09-02] MEDS ORDERED: traMADol 50 MG TAB PO PRN (14:38)
--- NOTE | 2020-09-02 14:41 | Post Operative Note ---
Pre-op diagnosis: small bowel obstruction Post-op diagnosis: same Findings: 1. Omental adhesions to midline abdominal wall 2. Interloop small bowel adhesions of jejunum x2 causing small bowel obstruction. No evidence of bowel ischemia 3. Minimal ascites Procedure: diagnostic laparoscopy, lysis of adhesions Anesthesia: GETA, local Surgeon: ASHUTOSH PIZARRO Sheet Metal Duct Installer Apprentice: GENEVA COCHRAN Estimated blood loss: minimal Pathology: none Condition: stable Disposition: PACU
[2020-09-02] MEDS ORDERED: SUGAMMADEX SODIUM 200 MG/2 ML VIAL IV ONE ×2 (14:42→14:47)
[2020-09-02] MEDS ORDERED: KETOROLAC 30 MG/1 ML INJ ONE (14:43)
[2020-09-02] MEDS ORDERED: ONDANSETRON 4 MG/2 ML INJ ONE (14:43)
[2020-09-02] MEDS ORDERED: ROCURONIUM 50 MG/5 ML INJ IV ONE (14:44)
[2020-09-02] MEDS ORDERED: LIDOCAINE-MPF (0.5%) 5 MG/1 ML VIAL 50 ML INFILTRATI ONE (14:44)
[2020-09-02] MEDS ORDERED: MEPERIDINE 25 MG/1 ML INJ IV PRN (14:54)
[2020-09-02] MEDS ORDERED: KETOROLAC 30 MG/1 ML INJ IV PRN (14:54)
[2020-09-02] MEDS ORDERED: MORPHINE 4 MG/1 ML INJ IV PRN (14:54)
[2020-09-02] MEDS ORDERED: LACTATED RINGERS 1,000 ML ONE (15:24)
[2020-09-02] MEDS: D5W/0.45% NACL 1,000 ML IV SCH (18:28)
--- NOTE | 2020-09-02 21:22 | Progress Note ---
Assessment and Plan -- Acute abdominal pain Probably secondary to small bowel obstruction. Patient placed on IV analgesic medication. Continue IV fluid, general surgery consulted -- Small bowel obstruction General surgeon consulted for evaluation. Plan for OR today, continue to monitor and follow general surgery recommendation --HIV, continue to follow-up outpatient -- DVT prophylaxis Patient placed on sequential compression device. -- Full code status 09/02: patient taken for surgery today, will follow post-op Subjective Date of service: 09/02/20 Interval history: Vitals reviewed Discussed with RN about plan of care Patient to go OR for surgery today Patient has been n.p.o. since midnight Objective - Constitutional Vitals: Vital Signs - 12hr 09/02/20 09/02/20 09/02/20 12:07 14:58 15:00 Temperature 98.1 F 99.3 F Pulse Rate 63 104 H 93 H Respiratory 18 11 L 12 Rate Blood Pressure 115/55 142/64 130/66 O2 Sat by Pulse 100 100 100 Oximetry 09/02/20 09/02/20 09/02/20 15:01 15:05 15:10 Temperature Pulse Rate 99 H 92 H Respiratory 12 16 16 Rate Blood Pressure 127/66 131/69 O2 Sat by Pulse 99 98 Oximetry 09/02/20 09/02/20 09/02/20 15:15 15:30 15:45 Temperature 98.1 F Pulse Rate 90 96 H 91 H Respiratory 15 12 14 Rate Blood Pressure 131/60 128/67 122/62 O2 Sat by Pulse 99 100 100 Oximetry 09/02/20 09/02/20 09/02/20 15:48 16:00 16:01 Temperature 97.8 F Pulse Rate 84 Respiratory 13 16 16 Rate Blood Pressure 122/68 O2 Sat by Pulse 100 Oximetry 09/02/20 09/02/20 09/02/20 16:11 16:18 17:30 Temperature 97.6 F Pulse Rate 75 Respiratory 16 16 18 Rate Blood Pressure 122/68 O2 Sat by Pulse 100 100 Oximetry 09/02/20 09/02/20 18:38 19:51 Temperature 98.4 F Pulse Rate 89 Respiratory 19 16 Rate Blood Pressure 119/60 O2 Sat by Pulse 100 97 Oximetry - Labs CBC & Chem 7: 09/03/20 05:22 09/03/20 05:22 Labs: Abnormal lab results 09/02/20 09/02/20 09/02/20 Range/Units 05:50 05:50 05:50 MCV 98 H (84-94) fl MCH 33 H (28-32) pg RDW 12.4 L (13.2-15.2) % [place] % (Auto) 8.3 H (0.0-7.3) % INR 1.15 H (0.87-1.13) BUN 7 L (9-20) mg/dL
[2020-09-03] MEDS: HYDROmorphone 1 MG/1 ML INJ IV PRN (01:25)
[2020-09-03 05:58] LABS: Basophils % (Auto) 0.2 % (0.0-1.8); Eosinophils # (Auto) 0.1 K/mm3 (0.0-0.4); Eosinophils % (Auto) 1.4 % (0.0-4.3); Hematocrit 35.5 % (35.5-45.6); Hemoglobin 11.7 gm/dl (11.8-15.2); Lymphocytes # (Auto) 2.3 K/mm3 (1.2-5.4); Lymphocytes % (Auto) 39.7 % (13.4-35.0); Mean Corpuscular HGB Conc 33 % (32-34); Mean Corpuscular Volume 98 fl (84-94); Monocytes # (Auto) 0.5 K/mm3 (0.0-0.8); Platelet Count 176 K/mm3 (140-440); Red Blood Count 3.63 M/mm3 (3.65-5.03); Red Cell Distribution Width 12.6 % (13.2-15.2)
[2020-09-03 06:05] LABS: BUN/Creatinine Ratio 4; Blood Urea Nitrogen 4 mg/dL (9-20); Hemolysis Index 7
[2020-09-03] MEDS: D5W/0.45% NACL 1,000 ML IV SCH (08:31)
[2020-09-03 11:12] VITALS: BP 116/69
--- NOTE | 2020-09-03 11:15 | Operative Report ---
Operative Report Operative Report: Date: 09/02/20 14:38 Pre-op diagnosis: small bowel obstruction Post-op diagnosis: same Findings: 1. Omental adhesions to midline abdominal wall 2. Interloop small bowel adhesions of jejunum x2 causing small bowel obstruction. No evidence of bowel ischemia 3. Minimal ascites Procedure: diagnostic laparoscopy, lysis of adhesions Anesthesia: NEVAEH, local Surgeon: ASHUTOSH PIZARRO Manager Costing: GENEVA COCHRAN Estimated blood loss: minimal Pathology: none Condition: stable Disposition: PACU HPI and indication: Patient is a 25-year-old male who presented to the emergency room with 1 day of severe crampy mid and lower abdominal pain associated with nausea and vomiting. Patient had a recent history of laparoscopic converted to open appendectomy with peritoneal lavage on 05/26/2020 for perforated appendicitis and generalized peritonitis. CT scan of the abdomen and pelvis was concerning for small bowel obstruction. The patient's abdominal exam was benign and he was admitted to the hospital and treated with pain medication and re suscitated. Follow-up abdominal x-ray showed persistent small bowel obstruction and the patient's abdominal exam worsened. It was recommended that he undergo diagnostic lap. All risk, benefits, alternatives to surgery were discussed with the patient questions were answered. Consent obtained for diagnostic laparoscopy, possible ex lap, possible bowel resection. Procedure in detail: The patient was identified in the preoperative area, taken back to the operating room and placed on the operating room table in supine position. After anesthesia was induced the Velazquez catheter was sterilely placed by the circulating nurse. Both arms were tucked and bony prominences padded appropriately. The abdomen was prepped and draped in usual sterile fashion a timeout was performed. Local anesthetic was infiltrated to skin at the intended incision sites. A polo incision was made in the left upper quadrant and the intended incision site. A Veress needle was inserted through this incision and the positioning confirmed using the saline drop test. The abdomen was insufflated to 15 mmHg without incident. The Veress needle was then removed and the incision elongated in order to accommodate a 5 mm Optiview trocar which was placed without incident. The abdomen is inspected there was no underlying injury to any of the abdominal structures. Immediately visible was some distended bowel in the mid lower abdomen and pelvis. There were omental adhesions to the anterior abdominal wall in the midline. There was a single loop of small bowel adhesed to the left lateral abdomen and multiple loops of nonobstructed decompressed small bowel adhered to the right lower quadrant. An additional 5 mm left lower quadrant trocar was placed under direct visualization. Omental adhesions to the midline were then taken down using a LigaSure. A 5 mm supra umbilical trocar was then placed under direct visualization along with a 5 mm right upper quadrant trocar for the seed analysis laboratory assistant. The patient was placed in Trendelenburg and tilted to the left. I started by identifying the cecum and terminal ileum. The small bowel was ran from the terminal ileum proximally. There was a dense interloop band adhesion in the distal jejunum which was a lead point for the small bowel obstruction. A grasper was placed between the bowel and the adhesion and the adhesion was transected using the LigaSure. There was an obvious transition point here where the distal small bowel was decompressed and the proximal was distended and fluid-filled. From this point the small bowel was ran proximally and a very loose interloop band adhesion was found in the mid jejunum. This adhesion was also transected using the LigaSure. As I continued to run the bowel it became more decompressed and normal in appearance in the proximal jejunum. There were no other points of obstruction seen. The adhesion from the small bowel to the left lateral abdomen was taken down very carefully using the LigaSure. All of the bowel was viable without any evidence of ischemia or injury. Inflammatory ascites in the pelvis and Morison's pouch was evacuated using the suction bagel maker. The patient was placed in neutral position. The ports were removed under direct visualization the abdomen desufflated. The skin incisions were once again infiltrated with local anesthetic and the skin incisions closed with 4-0 Monocryl subcuticular stitches and skin glue. At the end of the case all sponge, instrument, sharp counts were correct x2. The Velazquez catheter was removed. The patient was awoken from anesthesia extubated and taken to PACU in stable condition.
--- NOTE | 2020-09-03 11:40 | Progress Note ---
Assessment and Plan 25 yo M s/p dx lap, BARRETT, POD 1 1. SBO Plan: 1. full liquid diet for next 2 days, then may advance to soft diet. Written instructions given 2. dc IVF 3. prn PO pain control 4. may return to work in next 2-3 days 5. IS/pulm toilet 6. ok to DC from surgery standpoint. Pt instructed to call office and make appointment for follow up in 2 wks Thank you, please call with questions Subjective Date of service: 09/03/20 Narrative: Pt seen and examined. c/o soreness near incisions. No f/c. No n/v. Tolerating full liquid diet. Has been ambulating on his own. Mild discomfort during urination. No flatus or BM but feels he needs to go. Objective Vital Signs - 12hr 09/03/20 09/03/20 09/03/20 00:19 04:58 07:08 Temperature 98.6 F 98.4 F 98.0 F Pulse Rate 84 75 72 Respiratory 16 16 20 Rate Blood Pressure 113/61 113/64 115/66 O2 Sat by Pulse 99 99 100 Oximetry 09/03/20 11:10 Temperature 98.0 F Pulse Rate 74 Respiratory 16 Rate Blood Pressure 116/69 O2 Sat by Pulse 100 Oximetry - General physical appearance Narrative Exam: Gen: AAOx3. NAD CV: S1, S2+ Resp; even and unlabored Abd: soft, ND, NT. Incisions c/d/i Ext: no c/c/e - Labs 09/03/20 05:22 09/03/20 05:22 Diabetes panel 09/03/20 Range/Units 05:22 Sodium 135 L D (137-145) mmol/L Potassium 3.7 (3.6-5.0) mmol/L Chloride 100.9 (98-107) mmol/L Carbon Dioxide 27 (22-30) mmol/L BUN 4 L (9-20) mg/dL Creatinine 0.9 (0.8-1.3) mg/dL Glucose 87 (75-100) mg/dL Calcium 8.0 L (8.4-10.2) mg/dL Calcium panel 09/03/20 Range/Units 05:22 Calcium 8.0 L (8.4-10.2) mg/dL Pituitary panel 09/03/20 Range/Units 05:22 Sodium 135 L D (137-145) mmol/L Potassium 3.7 (3.6-5.0) mmol/L Chloride 100.9 (98-107) mmol/L Carbon Dioxide 27 (22-30) mmol/L BUN 4 L (9-20) mg/dL Creatinine 0.9 (0.8-1.3) mg/dL Glucose 87 (75-100) mg/dL Calcium 8.0 L (8.4-10.2) mg/dL Adrenal panel 09/03/20 Range/Units 05:22 Sodium 135 L D (137-145) mmol/L Potassium 3.7 (3.6-5.0) mmol/L Chloride 100.9 (98-107) mmol/L Carbon Dioxide 27 (22-30) mmol/L BUN 4 L (9-20) mg/dL Creatinine 0.9 (0.8-1.3) mg/dL Glucose 87 (75-100) mg/dL Calcium 8.0 L (8.4-10.2) mg/dL
--- NOTE | 2020-09-03 12:15 | Discharge Summary ---
Providers - Providers Date of Admission: 09/01/20 23:53 Date of discharge: 09/03/20 Attending physician: RUDY MANCILLA 09/01/20 20:57 Consult to Physician [CONS] Stat Comment: Consulting Provider: ASHUTOSH PIZARRO Physician Instructions: Reason For Exam: Small bowel obstruction Hospitalization Condition: Stable Hospital course: Discharge diagnosis: -- Acute abdominal pain secondary to small bowel obstruction. Patient placed on IV analgesic medication. -- Small bowel obstruction due to Interloop small bowel adhesions of jejunum x2 causing small bowel obstruction. No evidence of bowel ischemia General surgeon consulted for evaluation. s/p diagnostic laparoscopy, lysis of adhesions Patient tolerated diet --HIV, continue to follow-up outpatient -- DVT prophylaxis Patient placed on sequential compression device. -- Full code status Disposition: TO HOME OR SELFCARE Time spent for discharge: 34 minutes Core Measure Documentation - Palliative Care Palliative Care/ Comfort Measures: Not Applicable - Core Measures Any of the following diagnoses?: none Exam - Constitutional Vitals: Temp Pulse Resp BP Pulse Ox 98.0 F 74 16 116/69 100 09/03/20 11:10 09/03/20 11:10 09/03/20 11:10 09/03/20 11:10 09/03/20 11:10 Plan Activity: advance as tolerated Weight Bearing Status: Non-Weight Bearing Diet: advance as tolerated Wound: per your surgeon's advice Follow up with: POSITIVE,IMPACT [Other] - 3-5 Days ASHUTOSH PIZARRO DO [Staff Physician] - 14 Days Prescriptions: HYDROcodone/APAP 5-325 [[place] 5/325] 1 each PO Q6HR PRN #10 tablet PRN Reason: Pain , Severe (7-10)
== END 2020-09-03 12:54 | disposition home or self-care (01) | DRG 336 ==
LOC: ED 15:22 → 3B-SURG 23:53
PROVIDERS: ADMIT Internal Medicine Geriatric Medicine; ATTEND Internal Medicine
PROC: 0DNA4ZZ Release Jejunum, Percutaneous Endoscopic Approach (ICD-10-PCS; principal; 2020-09-02)
PROC: 0DNU4ZZ Release Omentum, Percutaneous Endoscopic Approach (ICD-10-PCS; 2020-09-02)
DX: K56.50 Intestinal adhesions [bands], unspecified as to partial versus complete obstruction (principal); R18.8 Other ascites; Z79.899 Other long term (current) drug therapy; Z90.49 Acquired absence of other specified parts of digestive tract; Z21 Asymptomatic human immunodeficiency virus [HIV] infection status
CPT/HCPCS: 36415; 74022; 74177; 80048; 80053; 81001; 82140; 83690; 85025; 85610; 96361; 96374; 96375; 96376; G0378; A4217; J1170; J1885; J2175; J2250; J2405; J2704; J3010; J7030; J7120; Q0162; Q9967